=== PATIENT | female | born 1945 | race Caucasian/White ===

== ENCOUNTER 2020-02-05 07:52 | Outpatient (REF) | payer MEDICARE, SELFPAY ==
[2020-02-06 09:36] LABS: CT PCR NOT DETECTED (Not Detect.); NG PCR NOT DETECTED (Not Detect.)
[2020-02-11 21:02] LABS: HPV 16 RNA NOT DETECTED (NOT DETECTED); HPV mRNA E6/E7 rflx Detected (Not Detected)
== END 2020-02-05 07:53 | disposition home or self-care (01) ==
LOC: HO.LAB 07:52
PROVIDERS: Advanced Practice Midwife; Visit Provider Advanced Practice Midwife
DX: Z01.419 Encounter for gynecological examination (general) (routine) without abnormal findings (principal); B97.7 Papillomavirus as the cause of diseases classified elsewhere; Z20.2 Contact with and (suspected) exposure to infections with a predominantly sexual mode of transmission; Z78.0 Asymptomatic menopausal state; R93.89 Abnormal findings on diagnostic imaging of other specified body structures
CPT/HCPCS: 87491; 87591; 87624; 87625; 88141; 88142; 99202

== ENCOUNTER 2020-03-04 08:24 | Outpatient (REF) | payer MEDICARE, SELFPAY | END 2020-03-04 08:25 | disposition home or self-care (01) | LOC: HO.LAB 08:24 | PROVIDERS: Visit Provider Obstetrics & Gynecology | DX: N87.0 Mild cervical dysplasia (principal) | CPT/HCPCS: 57454; 88305 ==

== ENCOUNTER → 2020-03-18 11:34 | Outpatient (BNVA) | payer MEDICARE, SELFPAY | PROVIDERS: Visit Provider Obstetrics & Gynecology | DX: Z13.89 Encounter for screening for other disorder (principal) | CPT/HCPCS: 99212 ==

== ENCOUNTER 2020-04-12 09:23 | Outpatient (REF) | payer MEDICARE, SELFPAY ==
[2020-04-12 11:27] LABS: Estimated Average Glucose 146 mg/dL; Glucose Urine UA NEG (NEG); Hemoglobin A1c % 6.7 %; Leukocyte Esterase Urine NEG (NEG); Nitrite Urine NEG (NEG); PH 5.5 (5.0-8.0); Specific Gravity - Urine 1.025 (1.005-1.025); Urine Blood NEG (NEG); Urine Ketones NEG (NEG); Urine Protein NEG (NEG-TRACE)
[2020-04-12 11:29] LABS: Appearance Urine CLEAR; Color Urine YELLOW
[2020-04-12 11:38] LABS: Alanine Aminotransferase 24 U/L (0-31); Albumin Level 4.5 g/dL (3.5-5.0); Alkaline Phosphatase 81 U/L (39-117); Anion Gap 13 (12-20); Aspartate Amino Transferase 19 U/L (5-31); Bilirubin Total 0.4 mg/dL (0.0-1.0); Blood Urea Nitrogen 19 mg/dL (9-16); Carbon Dioxide 28 mmol/L (22-29); Chloride 105 mmol/L (96-108); Cholesterol 186 mg/dL; Estimated Glomerular Filt Rate > 60; Glucose Fasting 163 mg/dL (60-99); HDL Cholesterol 63 mg/dL; LDL Cholesterol Calculated 93 mg/dl; Potassium 3.9 mmol/l (3.3-5.1); Sodium 142 mmol/L (135-145); Total Protein 7.6 g/dL (6.5-8.0); Triglycerides 154 mg/dL
[2020-04-12 11:59] LABS: TSH reflex Free T4 1.42 mIU/mL (0.32-4.0)
[2020-04-12 12:03] LABS: Creatinine Urine 95.08 mg/dL; Microalbum/Creatinine Ratio Ur 9.4 ug/mg cr
== END 2020-04-12 09:24 | disposition home or self-care (01) ==
LOC: HO.HMGCLDS 09:23
PROVIDERS: PCP Internal Medicine; Visit Provider Internal Medicine
DX: E11.9 Type 2 diabetes mellitus without complications (principal); I10 Essential (primary) hypertension; E78.5 Hyperlipidemia, unspecified
CPT/HCPCS: 36415; 80053; 80061; 81003; 82043; 83036; 84443

== ENCOUNTER 2020-09-02 09:21 | Observation (INO) | payer MEDICARE, SELFPAY ==
[2020-09-02] VITALS (12 sets, daily range): BP systolic 123–171; BP diastolic 60–80; PULSE 58–77; RESP 15–18; TEMP 36.6–37.2; O2SAT 94–97; BMI 29.1
--- NOTE | 2020-09-02 | ECG_ITS ---
Test Reason : DIZZINESS Blood Pressure : / mmHG Vent. Rate : 058 BPM Atrial Rate : 058 BPM P-R Int : 252 ms QRS Dur : 114 ms QT Int : 434 ms P-R-T Axes : 058 -45 -08 degrees QTc Int : 426 ms Sinus bradycardia with 1st degree A-V block Left axis deviation Voltage criteria for left ventricular hypertrophy Cannot rule out Septal infarct , age undetermined Abnormal ECG No previous ECGs available Referred By: Generic ED Physician Electronically Signed By:ARMANDO STAUFFER MD
--- NOTE | ~2020-09-02 | CT_ITS ---
EXAMINATION: CT HEAD WITHOUT CONTRAST. CHEST X-RAY. CLINICAL INFORMATION: Headache and dizziness COMPARISON: None TECHNIQUE: 5 mm thin axial and reformatted 2 mm thin sagittal and coronal images of brain were obtained without contrast. DLP 712. Chest AP one view FINDINGS: BRAIN: There is no acute intra-axial, extra-axial bleed, masses or collection. There is no acute infarction in evolution. The lateral ventricles are symmetrical in size and configuration without enlargement. Bone windows reveal no calvarial abnormality. There is no scalp soft tissue abnormality either. Bilateral paranasal sinuses and mastoid air cells are well aerated. Patient is completely edentulous CHEST X-RAY: The lungs are hypoexpanded but clear. The heart size and pulmonary vascularity is normal. No gross bony abnormality seen. CT/CT head/brain wo con IMPRESSION: No acute intracranial process seen. There is no acute cardiopulmonary process seen on a chest x-ray.
--- NOTE | ~2020-09-02 | MR_ITS ---
EXAMINATION: MR BRAIN WITHOUT CONTRAST CLINICAL INFORMATION: Dizziness. Question stroke. COMPARISON: Head CT 09/02/2020. TECHNIQUE: Multiplanar, multisequence imaging of the brain was performed without intravenous contrast. FINDINGS: There is no acute infarction, mass, hemorrhage, or extra-axial collection. The ventricles and sulci appear commensurate compatible with mild degree of brain parenchymal volume loss. There is no hydrocephalus. Mild periventricular T2 hyperintensity is noted, nonspecific. The flow voids of the major intracranial arteries appear intact. The bones and extracranial soft tissues are unremarkable. There are bilateral lens replacements. A small amount of right mastoid fluid is seen. MR/MR head/brain wo con IMPRESSION: No acute infarct, mass lesion, intracranial hemorrhage, or evidence of hydrocephalus.
--- NOTE | ~2020-09-02 | CT_ITS ---
EXAMINATION: CT ANGIOGRAM NECK WITH CONTRAST CT ANGIOGRAM BRAIN WITH CONTRAST CLINICAL INFORMATION: Question stroke. COMPARISON: Brain MRI 09/02/2020. TECHNIQUE: Test bolus sequences followed by intravenous administration 70 mL of Omnipaque 350. Helical imaging was performed in the axial plane from the thoracic inlet to the skull vertex. Delayed postcontrast imaging of the head was also performed. The data was processed at the systems technologist workstation for generation of MIP sequences. Angled MIPs and volume rendered reformatted images were also generated at an offline 3D workstation. Stenoses are assessed in accordance with NASCET criteria unless otherwise indicated. This CT examination was performed using dose optimization techniques as appropriate, variously including the following: *Automated exposure control *Adjustment of mA and/or kV according to patient size (this includes techniques or standardized protocols for targeted exams where dose is matched to indication/reason for exam; i.e. extremities or head) *Use of iterative reconstruction technique DLP: 1590 mGy-cm FINDINGS: Head CT: Only postcontrast images, no enhancing lesion is seen. There is no intracranial hemorrhage, extra-axial collection, mass effect, or territorial infarction. The ventricles are normal in size and configuration without evidence of hydrocephalus. The extracranial structures are within normal limits. Neck CTA: Atheromatous changes are seen involving the aortic arch. The great vessel origins are patent. Atheromatous changes are seen at the right more than left carotid bifurcations without associated stenosis. Both cervical ICA segments are widely patent. Both vertebral arteries are patent. Head CTA: No proximal vessel occlusion is seen. The anterior and posterior circulations are patent. There is origin of the right [employer]. Bilateral carotid siphon calcifications are present without associated stenosis. There is no definite aneurysm. The dural venous sinuses are patent. Non-vascular findings: The cervical soft tissues are within normal limits. No consolidation is seen in the upper lungs. Degenerative changes are seen within the spine. CT/CT angio head neck IMPRESSION: No significant stenosis in the major head or neck arteries. No proximal vessel occlusion.
[2020-09-02 11:30] LABS: MANUAL DIFF FLAG NO
[2020-09-02 11:32] LABS: Basophils Percent Auto 0.3 % (0-2); Eosinophils Percent Auto 0.4 % (0-4); Hematocrit 45.6 % (37-47); Imm Gran Abs Auto 0.02 X10*3/uL (0.00-0.03); Imm Gran Pct Auto 0.3 % (0.0-0.4); Lymphocytes Absolute Auto 1.7 X10*3/uL (1.2-4.9); Lymphocytes Percent Auto 23.2 % (20-40); Mean Corpuscular HGB Conc 32.9 g/dl (31.0-35.0); Mean Corpuscular Hemoglobin 30.2 pg (27.0-33.0); Mean Corpuscular Volume 91.9 fL (80-98); Mean Platelet Volume 10.4 fL (9.4-12.3); Monocytes Absolute Auto 0.3 X10*3/uL (0.1-1.2); Monocytes Percent Auto 4.4 % (2-11); Neutrophils Absolute Auto 5.4 X10*3/uL (2.0-8.3); Neutrophils Percent Auto 71.4 % (45-73); Platelet Count 214 X10*3/uL (160-400); Red Blood Count 4.96 X10*6/uL (4.20-5.50); White Blood Count 7.5 X10*3/uL (4.8-10.8)
[2020-09-02 12:02] LABS: Anion Gap 10 (12-20); Blood Urea Nitrogen 17 mg/dL (9-16); Calcium 9.6 mg/dL (8.4-10.2); Carbon Dioxide 29 mmol/L (22-29); Chloride 107 mmol/L (96-108); Creatinine Clr Calc Pharmacy 56.1; Estimated Glomerular Filt Rate > 60; Glucose Random 143 mg/dL (60-115); Sodium 142 mmol/L (135-145)
[2020-09-02 12:08] LABS: Troponin-I High Sensitivity < 3.5 ng/L (<3.5-17.0)
--- NOTE | 2020-09-02 12:32 | PC.NURSE ---
Pt is dizzy with standing and ambulation. Pt is altho orthostatic at this time. Abundio SANCHEZ aware.
[2020-09-02] MEDS: 0.9 % Sodium Chloride 1,000 ML 999 ML IV ×2 (12:34→15:18)
--- NOTE | 2020-09-02 12:47 | ED.DIZZY ---
HPI - Dizziness General Chief Complaint: Dizziness Stated Complaint: DIZZINESS Time Seen by Provider: 09/02/20 14:53 Source: patient Mode of arrival: ambulatory Limitations: no limitations History of Present Illness HPI Narrative: Patient presents to ED for dizziness. Patient describes dizziness as being on a boat and feeling of balance. Patient states specially when she walks. Patient denies any chest pain or shortness of breath. Patient admits to nausea. Patient denies any headache, neck stiffness, neck pain, fever, chills, dysuria, hematuria, abdominal pain, chest pain, abdominal pain, or any recent trauma. MD elicited complaint: dizziness Related Data Home Medications Medication Instructions Recorded Confirmed ascorbic acid (vitamin C) [Vitamin 50 mg PO DAILY 09/02/20 09/02/20 C] cholecalciferol (vitamin D3) mcg PO DAILY 09/02/20 [Vitamin D3] glipizide 2.5 mg PO DAILY@1700 09/02/20 09/02/20 glipizide 5 mg PO DAILY 09/02/20 09/02/20 omega-3 fatty acids [Fish Oil] PO 09/02/20 Previous Rx's Medication Instructions Recorded amlodipine 5 mg tablet 5 mg PO DAILY #90 tab 02/06/20 atorvastatin 40 mg tablet 40 mg PO DAILY #90 tab 04/12/20 metoprolol succinate 100 mg 100 mg PO DAILY #90 tab 08/09/20 tablet,extended release 24 hr oxybutynin chloride 5 mg 5 mg PO DAILY #90 tab 08/13/20 tablet,extended release 24 hr Allergies Allergy/AdvReac Type Severity Reaction Status Date / Time clarithromycin [From Biaxin] Allergy Unknown unknown Verified 09/02/20 08:19 doxycycline Allergy Unknown unknown Verified 09/02/20 08:19 hydrochlorothiazide Allergy Unknown Nausea Verified 09/02/20 08:19 lisinopril Allergy Unknown cough Verified 09/02/20 08:19 triamterene Allergy Unknown nausea Verified 09/02/20 08:19 Review of Systems Review of Systems: Yes all other systems are reviewed and are negative Constitutional: Constitutional: Reports as per HPI and Reports no additional constitutional complaints Eyes: Eyes: Reports as per HPI and Reports no additional eye complaints ENT: Reports system reviewed and no additional complaints, except as documented and Reports as per HPI Cardiovascular: Cardiovascular: Reports as per HPI and Reports no additional cardiovascular complaints Respiratory: Respiratory: Reports as per HPI and Reports no additional respiratory complaints Gastrointestinal: Gastrointestinal: Reports as per HPI, Reports no additional gastrointestinal complaints and Reports nausea Genitourinary: Genitourinary: Reports no additional female genitourinary complaints and Reports as per HPI Musculoskeletal: Musculoskeletal: Reports no additional musculoskeletal complaints and Reports as per HPI Neurologic: Reports system reviewed and no additional complaints, except as documented and Reports as per HPI [facility] Past Medical History Medical History Annual physical exam Carpal tunnel syndrome on both sides DM type 2 (diabetes mellitus, type 2) HPV (human papilloma virus) infection HSV (herpes simplex virus) infection Hyperglycemia Hyperlipemia Hypertension Menopausal disorder Pruritus Urinary incontinence Surgical History Hx of unilateral oophorectomy Family History Family History Father No problems noted. Mother No problems noted. Social History Social History Alcohol intake: never Advance Directives: Yes Advance Directives Information Provided: Yes Advance Directives on File: No Sexual orientation: Straight/Heterosexual Gender identity: female Physical Exam Vital Signs: Vital Signs: Last Vital Signs Temp 98.9 F 09/02/20 10:23 Pulse 77 09/02/20 16:45 Resp 18 09/02/20 15:22 BP 125/60 09/02/20 16:45 Pulse Ox 96 09/02/20 15:22 Body Mass Index 29.1 Const: General: cooperative, healthy appearing, comfortable, no acute distress, well developed, alert and awake Orientation/consciousness: patient oriented x3 HENMT: Head: Yes normal to inspection, Yes No palpable skull fracture present, Yes normocephalic, Yes atraumatic and No abrasion Eyes: Other: Negative nystagmus General: appearance normal, both eyes and all related structures Neck: Neck: Yes normal visual inspection, Yes full ROM, Yes no lymphadenopathy, Yes no meningeal signs, Yes trachea midline, Yes supple and No tender Chest: Chest palpation & inspection: normal inspection of the chest and normal palpation of entire chest wall Resp: Effort & Inspection: normal respiratory effort and able to speak in complete sentences Auscultation: clear to auscultation bilaterally Cardio: Jugular venous distension: no JVD Heart sounds: S1 normal heart sound present and S2 normal heart sound present : General: No CVA tenderness and Yes no CVA tenderness Back/Spine/Pelvis: Back: no CVA tenderness, No CVA tenderness and No back tenderness Skin: General skin exam: no rashes or lesions noted and elasticity normal Neuro: Other: Negative facial droop. Negative slurred speech. All extremities equal strength 5+. [id number] and rapid hand movement intact. Positive Romberg General: patient oriented x3, gait normal, no meningeal signs and CN's II-XI intact bilaterally Cranial nerves: Yes CN's II-XII intact bilaterally Extrem: General: Yes normal to inspection and Yes full ROM Psych: Appearance: grossly normal and well kempt Course Course Course Narrative: Patient had medical evaluation including EKG labs and troponin. Reevaluation(s) Reevaluation #1: Chest x-ray negative for pneumonia. Head CT came back normal. Will give meclizine and fluids. Due to positive Romberg patient of MRI will be ordered to evaluate posterior cerebellar infarct. Case discussed with Dr. Crane who agrees with plan. Patient initial orthostatics came back positive will give fluids and repeat orthostatics. Time: 12:54 Reevaluation #2: MRI came back negative. Repeat orthostatics positive. patient to be admitted for orhthosatics. Repeat troponin pending. Time: 17:03 Reevaluation #3: Case accepted by Dr. Watson the hospitalist. He recommends CT angio of head and neck. Time: 19:59 MDM - Dizziness MDM Narrative Medical decision making narrative: Orthostatics Lab Data Result diagrams: 09/02/20 11:25 09/02/20 11:25 Labs: Lab Results 09/02/20 09/02/20 09/02/20 Range/Units 11:25 11:25 11:25 WBC 7.5 (4.8-10.8) X10*3/uL RBC 4.96 (4.20-5.50) X10*6/uL Hgb 15.0 (12.0-16.0) g/dl Hct 45.6 (37-47) % MCV 91.9 (80-98) fL MCH 30.2 (27.0-33.0) pg MCHC 32.9 (31.0-35.0) g/dl RDW 12.0 (11.0-16.0) % Plt Count 214 (160-400) X10*3/uL MPV 10.4 (9.4-12.3) fL Immature Gran % (Auto) 0.3 (0.0-0.4) % Neut % (Auto) 71.4 (45-73) % Lymph % (Auto) 23.2 (20-40) % Marshall % (Auto) 4.4 (2-11) % Eos % (Auto) 0.4 (0-4) % Baso % (Auto) 0.3 (0-2) % Lymph # (Auto) 1.7 (1.2-4.9) X10*3/uL Marshall # (Auto) 0.3 (0.1-1.2) X10*3/uL Eos # (Auto) 0.0 (0.0-0.4) X10*3/uL Baso # (Auto) 0.0 (0.0-0.2) X10*3/uL Abs Immat Gran (auto) 0.02 (0.00-0.03) X10*3/uL Absolute Neuts (auto) 5.4 (2.0-8.3) X10*3/uL Absolute Nucleated RBC 0.000 (0.0-0.012) X10*3/uL Nucleated RBC % (auto) 0.0 (0.0-0.2) /100WBC Sodium 142 (135-145) mmol/L Potassium 4.0 (3.3-5.1) mmol/L Chloride 107 (96-108) mmol/L Carbon Dioxide 29 (22-29) mmol/L Anion Gap 10 L (12-20) BUN 17 H (9-16) mg/dL Creatinine 0.87 (0.5-1.4) mg/dL Estim Creat Clear Calc 56.1 Estimated GFR > 60 Random Glucose 143 H (60-115) mg/dL Calcium 9.6 D (8.4-10.2) mg/dL Troponin I High Sens < 3.5 (<3.5-17.0) ng/L COVID-19 (BALWINDER) (Negative) COVID-19 Clin Com 09/02/20 09/02/20 Range/Units 15:10 17:18 WBC (4.8-10.8) X10*3/uL RBC (4.20-5.50) X10*6/uL Hgb (12.0-16.0) g/dl Hct (37-47) % MCV (80-98) fL MCH (27.0-33.0) pg MCHC (31.0-35.0) g/dl RDW (11.0-16.0) % Plt Count (160-400) X10*3/uL MPV (9.4-12.3) fL Immature Gran % (Auto) (0.0-0.4) % Neut % (Auto) (45-73) % Lymph % (Auto) (20-40) % Marshall % (Auto) (2-11) % Eos % (Auto) (0-4) % Baso % (Auto) (0-2) % Lymph # (Auto) (1.2-4.9) X10*3/uL Marshall # (Auto) (0.1-1.2) X10*3/uL Eos # (Auto) (0.0-0.4) X10*3/uL Baso # (Auto) (0.0-0.2) X10*3/uL Abs Immat Gran (auto) (0.00-0.03) X10*3/uL Absolute Neuts (auto) (2.0-8.3) X10*3/uL Absolute Nucleated RBC (0.0-0.012) X10*3/uL Nucleated RBC % (auto) (0.0-0.2) /100WBC Sodium (135-145) mmol/L Potassium (3.3-5.1) mmol/L Chloride (96-108) mmol/L Carbon Dioxide (22-29) mmol/L Anion Gap (12-20) BUN (9-16) mg/dL Creatinine (0.5-1.4) mg/dL Estim Creat Clear Calc Estimated GFR Random Glucose (60-115) mg/dL Calcium (8.4-10.2) mg/dL Troponin I High Sens 3.8 (<3.5-17.0) ng/L COVID-19 (BALWINDER) Negative (Negative) COVID-19 Clin Com See Note ECG Data Interpretation: Sinus bradycardia with first-degree AV block. Ventricular rate 58. Pr interval 252. QRS 114. QTC 426. Negative STEMI Discharge Plan Discharge Clinical Impression: Dizziness, Orthostatic hypotension Patient Disposition: Admitted As Inpatient
[2020-09-02] MEDS: Meclizine HCl 25 MG TABLET 50 MG PO (15:20)
--- NOTE | 2020-09-02 15:24 | PC.NURSE ---
Pt returned from MRI. Daughter at bedside and both patient and daughter informed of the plan. Pt medicated with meclazine and a second liter of IVF.
[2020-09-02 15:34] LABS: COVID-19 Test Negative (Negative); IDNOW Serial# 9DD0AD1C
[2020-09-02 17:56] LABS: Troponin-I High Sensitivity 3.8 ng/L (<3.5-17.0)
--- NOTE | 2020-09-02 18:56 | PHA.MEDREC ---
Pharmacy Consult ? Medication Reconciliation Pharmacy has completed the medication reconciliation and there were no significant medication issues requiring provider attention. Patient states she takes fish oil and Vitamin D3 but I couldn't confirm the strength of medication with the patient. Patient also states she takes 5mg of Glipizide ER in the morning and 2.5 mg of Glipizide ER in the evening, just looks to be a recent change that wasn't reflected in the outpatient pharmacy claim history. Savanna Orourke, PharmD [phone]
--- NOTE | 2020-09-02 19:02 | PC.NURSE ---
Daughter Maricel [phone]
--- NOTE | 2020-09-02 20:46 | PM.IMHP ---
History of Present Illness Date of Service: 09/02/20 Chief Complaint: Dizziness 74-year-old female with a past medical history Of hypertension, hyperlipidemia, diabetes, carpal tunnel syndrome, menopausal, history of HSV, HPV infection, cervical intraepithelial neoplasia grade 1; presented to the hospital with a chief complaint of dizziness. Patient reports that over the past 3 days she has been having dizziness and feeling off balance. Denies any headaches or blurry visions. Denies any chest pain or palpitations. Denies any shortness of breath cough or fevers. Denies any GI or symptoms. Review of all other systems is negative except mentioned above ER course: Per ER team patient on presentation noted to be orthostatic; exam was nonfocal; CT head showed no acute findings. Patient was given IV fluids but patient still remained symptomatic with orthostatic being positive. Admitted to the hospital for further management. ER team mentioned that they already needed MRI of the brain which showed no acute findings. CT angio of the head and neck is pending. EKG was nonischemic but noted to be sinus Daniel with first-degree AV block.. [facility] Medical History Annual physical exam Carpal tunnel syndrome on both sides DM type 2 (diabetes mellitus, type 2) HPV (human papilloma virus) infection HSV (herpes simplex virus) infection Hyperglycemia Hyperlipemia Hypertension Menopausal disorder Pruritus Urinary incontinence Family History Father No problems noted. Mother No problems noted. Surgical History Hx of unilateral oophorectomy Social History Alcohol intake: never service: No Current occupational status: employed Sexual orientation: Straight/Heterosexual Gender identity: female Meds Allergies Allergy/AdvReac Type Severity Reaction Status Date / Time clarithromycin [From Biaxin] Allergy Unknown unknown Verified 09/02/20 08:19 doxycycline Allergy Unknown unknown Verified 09/02/20 08:19 hydrochlorothiazide Allergy Unknown Nausea Verified 09/02/20 08:19 lisinopril Allergy Unknown cough Verified 09/02/20 08:19 triamterene Allergy Unknown nausea Verified 09/02/20 08:19 Active Medications: Current Medications Generic Name Dose Route Start Last Admin Trade Name Wayne PRN Reason Stop Dose Admin Acetaminophen 650 mg 09/02/20 19:58 Acetaminophen 325 Mg Tablet PO Q6H PRN Pain, Mild (Pain Scale 1-3) Ascorbic Acid 500 mg 09/03/20 09:00 Ascorbic Acid 500 Mg Tablet PO DAILY [facility] Atorvastatin Calcium 40 mg 09/03/20 21:00 Atorvastatin Calcium 40 Mg Tablet PO BEDTIME [facility] Sodium Chloride 1,000 mls @ 100 mls/hr 09/02/20 20:00 Ns IVCONT .Q10H [facility] Insulin Human Lispro 0 unit 09/02/20 21:00 Insulin Lispro 100 Unit/Ml 3 Ml Vial SUBCUT QIDACHS [facility] Protocol Magnesium Hydroxide 30 ml 09/02/20 19:58 Milk Of Magnesia 30 Ml Oral.Susp PO DAILY PRN Constipation Metoprolol Succinate 100 mg 09/03/20 09:00 Metoprolol Succinate Er 100 Mg Tab.Er.24h PO DAILY [facility] Protocol Oxybutynin Chloride 5 mg 09/03/20 09:00 Oxybutynin Chloride Er 5 Mg Tab.Er.24 PO DAILY [facility] Pharmacy Consult 1 each 09/02/20 17:56 Consult Rx Perform Med Rec MISCELLANE ONCE PRN Consult order Senna 17.2 mg 09/02/20 19:58 Sennosides 8.6 Mg Tablet PO BEDTIME PRN Constipation Sodium Chloride 3 ml 09/03/20 00:00 0.9 % Sodium Chloride Flush 3 Ml Syringe IVFLUSH QSHIFT [facility] Home Medications Medication Instructions Recorded Confirmed Last Taken Type ascorbic acid (vitamin C) [Vitamin 50 mg PO DAILY 09/02/20 09/02/20 09/02/20 History C] cholecalciferol (vitamin D3) mcg PO DAILY 09/02/20 Unknown History [Vitamin D3] glipizide 2.5 mg PO DAILY@1700 09/02/20 09/02/20 09/01/20 History glipizide 5 mg PO DAILY 09/02/20 09/02/20 09/02/20 History omega-3 fatty acids PO 09/02/20 Unknown History Physical Exam Vital Signs and Narrative: Vital Signs: Last Vital Signs Temp 98.9 F 09/02/20 10:23 Pulse 77 09/02/20 16:45 Resp 18 09/02/20 15:22 BP 125/60 09/02/20 16:45 Pulse Ox 96 09/02/20 15:22 Body Mass Index 29.1 Gen: Appears be in no acute distress HEENT: NCAT, Moist mucosa. Pupils equal and reactive Pulmonary: Vesicular breath sounds, fair air entry CVS: Normal S1-S2 Abdomen: BS+, Soft, Nontender Extremities: Warm well perfused Neuro: Alert and awake. Grossly nonfocal Results Labs CBC and Chem 7: 09/03/20 05:43 09/03/20 05:43 Labs: Laboratory Results - last 24 hr 09/02/20 09/02/20 09/02/20 11:25 11:25 11:25 MCV 91.9 MCH 30.2 MCHC 32.9 RDW 12.0 Plt Count 214 MPV 10.4 Immature Gran % (Auto) 0.3 Neut % (Auto) 71.4 Lymph % (Auto) 23.2 Powell % (Auto) 4.4 Eos % (Auto) 0.4 Baso % (Auto) 0.3 Lymph # (Auto) 1.7 Powell # (Auto) 0.3 Eos # (Auto) 0.0 Baso # (Auto) 0.0 Abs Immat Gran (auto) 0.02 Absolute Neuts (auto) 5.4 Absolute Nucleated RBC 0.000 Nucleated RBC % (auto) 0.0 Anion Gap 10 L Estim Creat Clear Calc 56.1 Estimated GFR > 60 Random Glucose 143 H Calcium 9.6 D Troponin I High Sens < 3.5 COVID-19 ([facility]) COVID-19 Clin Com 09/02/20 09/02/20 15:10 17:18 MCV MCH MCHC RDW Plt Count MPV Immature Gran % (Auto) Neut % (Auto) Lymph % (Auto) Powell % (Auto) Eos % (Auto) Baso % (Auto) Lymph # (Auto) Powell # (Auto) Eos # (Auto) Baso # (Auto) Abs Immat Gran (auto) Absolute Neuts (auto) Absolute Nucleated RBC Nucleated RBC % (auto) Anion Gap Estim Creat Clear Calc Estimated GFR Random Glucose Calcium Troponin I High Sens 3.8 COVID-19 (BALWINDER) Negative COVID-19 Clin Com See Note Imaging Radiologist's Impressions: Impressions Head CT 09/02/20 10:30 IMPRESSION: No acute intracranial process seen. There is no acute cardiopulmonary process seen on a chest x-ray. Chest X-Ray 09/02/20 10:37 IMPRESSION: No acute intracranial process seen. There is no acute cardiopulmonary process seen on a chest x-ray. Brain MRI 09/02/20 12:31 IMPRESSION: No acute infarct, mass lesion, intracranial hemorrhage, or evidence of hydrocephalus. Assessment and Plan (1) Dizziness: Status: Acute 74-year-old female with a past medical history of hypertension, hyperlipidemia, diabetes presented to the hospital with a chief complaint of dizziness for the past 3 days. Dizziness: Patient noted to be orthostatic. Grossly nonfocal examination. MRI brain showed no acute findings. CT angio head and neck pending. Meclizine p.r.n. Neurology consult Patient noted to be orthostatic positive. Gentle IV fluids. Hold home antihypertensives for now. Sinus bradycardia/first-degree AV block: Will obtain TSH and echocardiogram. Telemetry. Cardiology consult. Diabetes: Insulin sliding scale DVT prophylaxis: SCD boots Code status: Full code
[2020-09-02] MEDS: iohexoL 350 MG/ML 100 ML INFUS..BTL IV (20:59)
[2020-09-02 21:11] LABS: Glucose, Whole Blood 179 mg/dL (60-115)
[2020-09-02] MEDS: 0.9 % Sodium Chloride 1,000 ML 100 ML IVCONT (21:14)
[2020-09-02] MEDS: Meclizine HCl 25 MG TABLET PO (21:14)
[2020-09-02] MEDS: Acetaminophen 325 MG TABLET 650 MG PO (21:14)
[2020-09-02] MEDS: Insulin Lispro 100 UNIT/ML 3 ML VIAL SUBCUT (21:14)
[2020-09-03] VITALS (8 sets, daily range): BP systolic 121–156; BP diastolic 34–84; PULSE 59–78; RESP 18–20; TEMP 36.3–36.9; O2SAT 94–97
[2020-09-03 06:40] LABS: MANUAL DIFF FLAG NO
[2020-09-03 07:01] LABS: Basophils Percent Auto 0.3 % (0-2); Eosinophils Absolute Auto 0.1 X10*3/uL (0.0-0.4); Eosinophils Percent Auto 1.9 % (0-4); Hematocrit 44.2 % (37-47); Hemoglobin 14.4 g/dl (12.0-16.0); Imm Gran Abs Auto 0.01 X10*3/uL (0.00-0.03); Imm Gran Pct Auto 0.1 % (0.0-0.4); Lymphocytes Percent Auto 28.7 % (20-40); Mean Corpuscular HGB Conc 32.6 g/dl (31.0-35.0); Mean Corpuscular Hemoglobin 29.8 pg (27.0-33.0); Mean Corpuscular Volume 91.3 fL (80-98); Mean Platelet Volume 11.1 fL (9.4-12.3); Monocytes Absolute Auto 0.5 X10*3/uL (0.1-1.2); Monocytes Percent Auto 7.4 % (2-11); Neutrophils Absolute Auto 4.3 X10*3/uL (2.0-8.3); Neutrophils Percent Auto 61.6 % (45-73); Platelet Count 216 X10*3/uL (160-400); Red Blood Count 4.84 X10*6/uL (4.20-5.50); Red Cell Distribution Width 12.1 % (11.0-16.0)
[2020-09-03 07:22] LABS: Anion Gap 12 (12-20); Blood Urea Nitrogen 15 mg/dL (9-16); Calcium 8.4 mg/dL (8.4-10.2); Carbon Dioxide 25 mmol/L (22-29); Chloride 111 mmol/L (96-108); Creatinine Clr Calc Pharmacy 62.6; Estimated Glomerular Filt Rate > 60; Glucose Random 100 mg/dL (60-115); Potassium 3.8 mmol/L (3.3-5.1); Sodium 144 mmol/L (135-145)
[2020-09-03 07:33] LABS: Glucose, Whole Blood 123 mg/dL (60-115)
[2020-09-03 07:33] LABS: Thyroid Stimulating Hormone 2.02 uIU/mL (0.32-4.0)
[2020-09-03] MEDS: Ascorbic Acid 500 MG TABLET PO (08:43)
[2020-09-03] MEDS: Metoprolol Succinate ER 100 MG TAB.ER.24H PO (08:43)
--- NOTE | 2020-09-03 09:23 | MHC.CM.PN ---
CM spoke with Patient over the phone @ [phone], with the assist of [employer] ([employer]) and addressed CARVAJAL, providing Patient with the original and placing a copy on the chart. Patient lives in a house with her Daughter/Caridad @ [phone] and she has no DME nor did she require any services in the home. Patient's goal for dc is to return home/no services and CM has initiated and will follow for dc planning. PCP/Dr. Kimberlyn Noland.
--- NOTE | 2020-09-03 11:06 | P.CONCA_ITS ---
History of Present Illness History of Present Illness Date of Service: 09/03/20 Requesting physician: Guero Watson Consult reason: other (Near-syncope) Chief complaint: DIZZINESS Narrative: I was requested to see Sona in cardiology consultation today for near syncope. She is a 74-year-old woman with prior history of hypertension which has been difficult to control, diabetes came to the hospital with dizziness for the last 3 days. History was obtained with help of a [place] windows migration technician over the telephone. She is a difficult historian despite an windows migration technician. Patient says in the recent past her blood pressure has been somewhat difficult control and her medicines have been adjusted. She is not able to tell which medicines. However the last 3 days she has been noticing symptoms of lightheadedness especially when she gets up from a supine position or when she is upright. During this heart whether she has been working outside however does go inside the house and had condition rest. She has been apparently drinking adequate amount of fluids. However she came yesterday with these symptoms after seeing a primary care physician referred to the emergency room. In the emergency room she was noted to have significant orthostasis and was admitted for IV fluid. She remained orthostatic. However this morning orthostatic vitals were performed. She has mild drop in her standing blood pressure otherwise she is not symptomatic. However she says this morning she has not been able to move around because she has down to the IV pole. She denies any full syncopal episode. She denies any palpitations. Independently she says over the last 3-4 months she has been getting retrosternal chest burning sensation. Symptoms last for few minutes are pretty intense. They are not clearly exertional in nature. Can happen at any time. No shortness of breath, orthopnea, PND, leg edema. At home she is on amlodipine 5 mg and Toprol 100 mg. On admission she was noted to have sinus bradycardia with first-degree AV block. Review of Systems Constitutional: Constitutional: Reports no additional constitutional complaints Cardiovascular: Cardiovascular: Denies Abdominal Distension, Reports chest pain, Denies leg edema, Reports lightheadedness, Denies palpitations and Denies dyspnea Respiratory: Respiratory: Reports no additional respiratory complaints and Denies dyspnea Gastrointestinal: Gastrointestinal: Reports no additional gastrointestinal complaints Genitourinary: Genitourinary: Reports no additional female genitourinary complaints Musculoskeletal: Musculoskeletal: Reports no additional musculoskeletal complaints Neurologic: Reports system reviewed and no additional complaints, except as documented Endocrine: Endocrine: Reports no additional endocrine complaints and Denies palpitations Hematologic/Lymphatic: Hematologic/Lymphatic: Reports no additional hematologic/lymphatic complaints [facility] Past Medical History Medical History Annual physical exam Carpal tunnel syndrome on both sides DM type 2 (diabetes mellitus, type 2) HPV (human papilloma virus) infection HSV (herpes simplex virus) infection Hyperglycemia Hyperlipemia Hypertension Menopausal disorder Pruritus Urinary incontinence Family History Family History Father No problems noted. Mother No problems noted. Surgical History Surgical History Hx of unilateral oophorectomy Social History Social History Alcohol intake: never Currently Displaying Signs/Symptoms of Drug Intoxication Withdrawal: No Advance Directives: Yes Advance Directives Information Provided: Yes Advance Directives on File: No Do you have thoughts of harming others: None Do you have a plan to hurt others: No Plan service: No Current occupational status: employed Sexual orientation: Straight/Heterosexual Gender identity: female Meds Allergies Allergy/AdvReac Type Severity Reaction Status Date / Time clarithromycin [From Biaxin] Allergy Unknown unknown Verified 09/02/20 08:19 doxycycline Allergy Unknown unknown Verified 09/02/20 08:19 hydrochlorothiazide Allergy Unknown Nausea Verified 09/02/20 08:19 lisinopril Allergy Unknown cough Verified 09/02/20 08:19 triamterene Allergy Unknown nausea Verified 09/02/20 08:19 Active Medications: Current Medications Generic Name Dose Route Start Last Admin Trade Name Freq PRN Reason Stop Dose Admin Acetaminophen 650 mg 09/02/20 19:58 09/02/20 21:14 Acetaminophen 325 Mg Tablet PO 650 mg Q6H PRN Administration Pain, Mild (Pain Scale 1-3) Ascorbic Acid 500 mg 09/03/20 09:00 09/03/20 08:43 Ascorbic Acid 500 Mg Tablet PO 500 mg DAILY BEATRIS Administration Atorvastatin Calcium 40 mg 09/03/20 21:00 Atorvastatin Calcium 40 Mg Tablet PO BEDTIME BEATRIS Sodium Chloride 1,000 mls @ 100 mls/hr 09/02/20 20:00 09/03/20 08:42 Ns IVCONT Not Given .Q10H [facility] Insulin Human Lispro 0 unit 09/02/20 21:00 09/03/20 07:35 Insulin Lispro 100 Unit/Ml 3 Ml Vial SUBCUT Not Given QIDACHS [facility] Protocol Magnesium Hydroxide 30 ml 09/02/20 19:58 Milk Of Magnesia 30 Ml Oral.Susp PO DAILY PRN Constipation Meclizine HCl 25 mg 09/02/20 20:51 09/02/20 21:14 Meclizine Hcl 25 Mg Tablet PO 25 mg Q8H PRN Administration dizziness Metoprolol Succinate 100 mg 09/03/20 09:00 09/03/20 08:43 Metoprolol Succinate Er 100 Mg Tab.Er.24h PO 100 mg DAILY [facility] Administration Protocol Oxybutynin Chloride 5 mg 09/03/20 09:00 09/03/20 08:43 Oxybutynin Chloride Er 5 Mg Tab.Er.24 PO 5 mg DAILY [facility] Administration Pharmacy Consult 1 each 09/02/20 17:56 Consult Rx Perform Med Rec MISCELLANE ONCE PRN Consult order Senna 17.2 mg 09/02/20 19:58 Sennosides 8.6 Mg Tablet PO BEDTIME PRN Constipation Sodium Chloride 3 ml 09/03/20 00:00 09/03/20 08:43 0.9 % Sodium Chloride Flush 3 Ml Syringe IVFLUSH Not Given QSHIFT [facility] Home Medications Medication Instructions Recorded Confirmed Last Taken Type ascorbic acid (vitamin C) [Vitamin 50 mg PO DAILY 09/02/20 09/02/20 09/02/20 History C] cholecalciferol (vitamin D3) mcg PO DAILY 09/02/20 Unknown History [Vitamin D3] glipizide 2.5 mg PO DAILY@1700 09/02/20 09/02/20 09/01/20 History glipizide 5 mg PO DAILY 09/02/20 09/02/20 09/02/20 History omega-3 fatty acids [Fish Oil] PO 09/02/20 Unknown History Physical Exam Vital Signs: Vital Signs: Last Vital Signs Temp 97.8 F 09/03/20 07:39 Pulse 78 09/03/20 07:44 Resp 20 09/03/20 07:39 BP 123/34 L 09/03/20 07:44 Pulse Ox 94 09/03/20 07:39 Body Mass Index 29.1 Const: General: cooperative, comfortable, alert and awake Nutritional Appearance: overweight Orientation/consciousness: patient oriented x3 Limitations: no limitations HENMT: Head: Yes normocephalic and Yes atraumatic Neck: Neck: Yes trachea midline, Yes supple and Yes no JVD Resp: Effort & Inspection: normal respiratory effort Auscultation: clear to auscultation bilaterally Cardio: Jugular venous distension: no JVD Palpation: normal PMI Rate: r egular rate Rhythm: regular rhythm Heart sounds: S1 normal heart sound present, S2 normal heart sound present and Other heart sounds present (S4 p resent) GI: Auscultation: normal bowel sounds Skin: General skin exam: no rashes or lesions noted Neuro: General: patient oriented x3 and no focal motor deficits Extrem: General: Yes no clubbing, cyanosis or edema Psych: Appearance: grossly normal Results Labs and Meds Result diagrams: 09/03/20 05:43 09/03/20 05:43 Lab results: Laboratory Results - last 24 hr 09/02/20 09/02/20 09/02/20 11:25 11:25 11:25 WBC 7.5 RBC 4.96 Hgb 15.0 Hct 45.6 MCV 91.9 MCH 30.2 MCHC 32.9 RDW 12.0 Plt Count 214 MPV 10.4 Immature Gran % (Auto) 0.3 Neut % (Auto) 71.4 Lymph % (Auto) 23.2 [place] % (Auto) 4.4 Eos % (Auto) 0.4 Baso % (Auto) 0.3 Lymph # (Auto) 1.7 [place] # (Auto) 0.3 Eos # (Auto) 0.0 Baso # (Auto) 0.0 Abs Immat Gran (auto) 0.02 Absolute Neuts (auto) 5.4 Absolute Nucleated RBC 0.000 Nucleated RBC % (auto) 0.0 Sodium 142 Potassium 4.0 Chloride 107 Carbon Dioxide 29 Anion Gap 10 L BUN 17 H Creatinine 0.87 Estim Creat Clear Calc 56.1 Estimated GFR > 60 POC Glucose Random Glucose 143 H Calcium 9.6 D Troponin I High Sens < 3.5 TSH COVID-19 ([facility]WINDER) COVID-19 Clin Com 09/02/20 09/02/20 09/02/20 15:10 17:18 21:03 WBC RBC Hgb Hct MCV MCH MCHC RDW Plt Count MPV Immature Gran % (Auto) Neut % (Auto) Lymph % (Auto) [place] % (Auto) Eos % (Auto) Baso % (Auto) Lymph # (Auto) [place] # (Auto) Eos # (Auto) Baso # (Auto) Abs Immat Gran (auto) Absolute Neuts (auto) Absolute Nucleated RBC Nucleated RBC % (auto) Sodium Potassium Chloride Carbon Dioxide Anion Gap BUN Creatinine Estim Creat Clear Calc Estimated GFR POC Glucose 179 H Random Glucose Calcium Troponin I High Sens 3.8 TSH COVID-19 (BALWINDER) Negative COVID-19 Clin Com See Note 09/03/20 09/03/20 09/03/20 05:43 05:43 05:43 WBC 7.0 RBC 4.84 Hgb 14.4 Hct 44.2 MCV 91.3 MCH 29.8 MCHC 32.6 RDW 12.1 Plt Count 216 MPV 11.1 Immature Gran % (Auto) 0.1 Neut % (Auto) 61.6 Lymph % (Auto) 28.7 Mathews % (Auto) 7.4 Eos % (Auto) 1.9 Baso % (Auto) 0.3 Lymph # (Auto) 2.0 [place]ws # (Auto) 0.5 Eos # (Auto) 0.1 Baso # (Auto) 0.0 Abs Immat Gran (auto) 0.01 Absolute Neuts (auto) 4.3 Absolute Nucleated RBC 0.000 Nucleated RBC % (auto) 0.0 Sodium 144 Potassium 3.8 Chloride 111 H Carbon Dioxide 25 Anion Gap 12 BUN 15 Creatinine 0.78 Estim Creat Clear Calc 62.6 Estimated GFR > 60 POC Glucose Random Glucose 100 Calcium 8.4 D Troponin I High Sens TSH 2.02 COVID-19 ([facility]) COVID-19 Clin Com 09/03/20 07:22 WBC RBC Hgb Hct MCV MCH MCHC RDW Plt Count MPV Immature Gran % (Auto) Neut % (Auto) Lymph % (Auto) [place] % (Auto) Eos % (Auto) Baso % (Auto) Lymph # (Auto) [place] # (Auto) Eos # (Auto) Baso # (Auto) Abs Immat Gran (auto) Absolute Neuts (auto) Absolute Nucleated RBC Nucleated RBC % (auto) Sodium Potassium Chloride Carbon Dioxide Anion Gap BUN Creatinine Estim Creat Clear Calc Estimated GFR POC Glucose 123 H Random Glucose Calcium Troponin I High Sens TSH COVID-19 (BALWINDER) COVID-19 Clin Com Imaging Radiologist's impression: Impressions Brain MRI 09/02/20 12:31 IMPRESSION: No acute infarct, mass lesion, intracranial hemorrhage, or evidence of hydrocephalus. Head/Neck CTA 09/02/20 19:56 IMPRESSION: No significant stenosis in the major head or neck arteries. No proximal vessel occlusion. Assessment and Plan (1) Near syncope: Status: Acute Near syncope in elderly woman with prior history of difficult control hypertension and diabetes with prior history of carpal tunnel syndrome. Patient was noted to be orthostatic most likely due to intravascular volume depletion from dehydration due to recent weather and probably not adequate oral intake. I had a very detailed discussion about mechanism of orthostatic hypotension with her with help of windows migration technician. Despite that she seemed to not grasp the concept. Please provide education material for her as well as her family to understand this condition. We discussed about changing position from supine to sitting to standing position more gradually. Advised to seek sitting or supine position she gets lightheaded. Advise increase fluid intake. Also reduce her metoprolol to 50 mg daily in the morning and switch her amlodipine 5 mg to nighttime. Advised to monitor blood pressure at home and maintain a log. Will perform outpatient testing including Holter monitor, echocardiogram. She eventually showed some understanding. (2) Atypical chest pain: Status: Acute Patient with recent onset intermittent burning chest discomfort atypical features. She has multiple risk factors for coronary artery disease. Will perform a exercise myocardial perfusion imaging as outpatient. She has no evidence of acute coronary syndrome at this time. Will follow up as outpatient. Thank you for allowing me to partake in the care Procedures Date of Service Date of Service: 09/03/20
--- NOTE | 2020-09-03 12:24 | MHC.CM.PN ---
Patient has been medically cleared for dc to home today, no services.
[2020-09-03 12:53] LABS: Glucose, Whole Blood 143 mg/dL (60-115)
--- NOTE | 2020-09-03 14:00 | P.DS_ITS ---
DS: Providers Provider Date of Service: 09/03/20 Date of admission: 09/02/20 19:58 Primary care physician: Kimberlyn Noland MD Consults: 09/02/20 19:58 Consult to Cardiology Routine Consulting Provider: Rolando Hunter Reason for consultation: 1*AVB; bradycardia; p/w Dizziness 09/02/20 20:51 Consult to Neurology Routine Consulting Provider: [facility] Reason for consultation: dizziness; rhombergs positive DS: Diagnosis Discharge Diagnosis (1) Near syncope: Status: Acute (2) Atypical chest pain: Status: Acute DS: Medications Discharge Medications Home Medications: Home Medications Medication Instructions Recorded Confirmed ascorbic acid (vitamin C) [Vitamin 50 mg PO DAILY 09/02/20 09/02/20 C] cholecalciferol (vitamin D3) mcg PO DAILY 09/02/20 [Vitamin D3] glipizide 2.5 mg PO DAILY@1700 09/02/20 09/02/20 glipizide 5 mg PO DAILY 09/02/20 09/02/20 omega-3 fatty acids PO 09/02/20 Previous Rx's Medication Instructions Recorded atorvastatin 40 mg tablet 40 mg PO DAILY #90 tab 04/12/20 oxybutynin chloride 5 mg 5 mg PO DAILY #90 tab 08/13/20 tablet,extended release 24 hr amlodipine 5 mg PO BEDTIME #90 tab 09/03/20 metoprolol succinate 50 mg PO DAILY #90 tab 09/03/20 DS: Summary Hospital Course Hospital Course: History is obtained from H&P Chief Complaint: Dizziness 74-year-old female with a past medical history Of hypertension, hyperlipidemia, diabetes, carpal tunnel syndrome, menopausal, history of HSV, HPV infection, cervical intraepithelial neoplasia grade 1; presented to the hospital with a chief complaint of dizziness. Patient reports that over the past 3 days she has been having dizziness and feeling off balance. Denies any headaches or blurry visions. Denies any chest pain or palpitations. Denies any shortness of breath cough or fevers. Denies any GI or symptoms. While in the ED patient was found to have orthostatic hypotension. Patient was treated with IV fluids with resolution of her symptoms. Patient's orthostatic vitals were normal this morning. Cardiology was also consulted as her EKG showed first-degree AV block. Recommended to reduce her metoprolol from 100 mg to 50 mg and change her amlodipine to bedtime. Patient's symptoms resolved, orthostatic vitals negative for orthostasis. patient will be discharged home. Please follow-up with PCP in 1 week Time Spent with Patient Time attestation: Total time spent providing and/or coordinating discharge services: Discharge coordination time: Greater than 30 minutes Quality: Stroke Does the patient have a stroke diagnosis?: No Physical Exam Vital Signs: Vital Signs: Last Vital Signs Temp 98.4 F 09/03/20 11:44 Pulse 75 09/03/20 11:44 Resp 19 09/03/20 11:44 BP 148/71 H 09/03/20 11:44 Pulse Ox 95 09/03/20 11:44 Body Mass Index 29.1 Const: General: cooperative and no acute distress Orientation/consciousness: patient oriented x3 Eyes: General: appearance normal, both eyes and all related structures Resp: Effort & Inspection: normal respiratory effort and able to speak in complete sentences Cardio: Rate: regular rate Rhythm: regular rhythm GI: Palpation (GI): Soft to palpation Auscultation: normal bowel sounds Skin: General skin exam: no rashes or lesions noted Neuro: General: patient oriented x3 Cognition (Neuro): normal cognition Extrem: General: Yes normal to inspection and Yes no pedal edema DS: Data Data Completed and Pending Labs on day of discharge: Laboratory Results - last 24 hr 09/02/20 09/02/20 09/02/20 15:10 17:18 21:03 WBC RBC Hgb Hct MCV MCH MCHC RDW Plt Count MPV Immature Gran % (Auto) Neut % (Auto) Lymph % (Auto) [place] % (Auto) Eos % (Auto) Baso % (Auto) Lymph # (Auto) [place] # (Auto) Eos # (Auto) Baso # (Auto) Abs Immat Gran (auto) Absolute Neuts (auto) Absolute Nucleated RBC Nucleated RBC % (auto) Sodium Potassium Chloride Carbon Dioxide Anion Gap BUN Creatinine Estim Creat Clear Calc Estimated GFR POC Glucose 179 H Random Glucose Calcium Troponin I High Sens 3.8 TSH COVID-19 ([facility]WINDER) Negative COVID-19 Clin Com See Note 09/03/20 09/03/20 09/03/20 05:43 05:43 05:43 WBC 7.0 RBC 4.84 Hgb 14.4 Hct 44.2 MCV 91.3 MCH 29.8 MCHC 32.6 RDW 12.1 Plt Count 216 MPV 11.1 Immature Gran % (Auto) 0.1 Neut % (Auto) 61.6 Lymph % (Auto) 28.7 [place] % (Auto) 7.4 Eos % (Auto) 1.9 Baso % (Auto) 0.3 Lymph # (Auto) 2.0 [place] # (Auto) 0.5 Eos # (Auto) 0.1 Baso # (Auto) 0.0 Abs Immat Gran (auto) 0.01 Absolute Neuts (auto) 4.3 Absolute Nucleated RBC 0.000 Nucleated RBC % (auto) 0.0 Sodium 144 Potassium 3.8 Chloride 111 H Carbon Dioxide 25 Anion Gap 12 BUN 15 Creatinine 0.78 Estim Creat Clear Calc 62.6 Estimated GFR > 60 POC Glucose Random Glucose 100 Calcium 8.4 D Troponin I High Sens TSH 2.02 COVID-19 (BALWINDER) COVID-19 [facility] 09/03/20 09/03/20 07:22 11:37 WBC RBC Hgb Hct MCV MCH MCHC RDW Plt Count MPV Immature Gran % (Auto) Neut % (Auto) Lymph % (Auto) [place] % (Auto) Eos % (Auto) Baso % (Auto) Lymph # (Auto) [place] # (Auto) Eos # (Auto) Baso # (Auto) Abs Immat Gran (auto) Absolute Neuts (auto) Absolute Nucleated RBC Nucleated RBC % (auto) Sodium Potassium Chloride Carbon Dioxide Anion Gap BUN Creatinine Estim Creat Clear Calc Estimated GFR POC Glucose 123 H 143 H Random Glucose Calcium Troponin I High Sens TSH COVID-19 ([facility]WINDER) COVID-19 Clin Com Discharge Plan Discharge Patient Disposition: Home, Self-Care Referrals: Kimberlyn Noland MD [Primary Care Provider] - 1 Week Discharge Medications: Continued oxybutynin chloride 5 mg tablet extended release 24hr 5 mg PO DAILY Qty: 90 RF: 3 glipizide 2.5 mg tablet extended release 24hr 5 mg PO DAILY RF: 0 ascorbic acid (vitamin C) [Vitamin C] 500 mg tablet 50 mg PO DAILY RF: 0 glipizide 2.5 mg tablet extended release 24hr 2.5 mg PO DAILY@1700 RF: 0 cholecalciferol (vitamin D3) [Vitamin D3] 25 mcg (1,000 unit) Capsule PO DAILY RF: 0 omega-3 fatty acids Capsule PO RF: 0 atorvastatin 40 mg tablet 40 mg PO DAILY Qty: 90 RF: 3 Changed metoprolol succinate 100 mg tablet extended release 24 hr 50 mg PO DAILY Qty: 90 RF: 3 amlodipine 5 mg tablet 5 mg PO BEDTIME Qty: 90 RF: 3 Discharge Orders: Discharge Order (Routine); Ordered 09/03/20 Ordered By: James Retana Diet: advance to usual diet Activity on Discharge: As tolerated Stand Alone Forms: Patient Portal Discharge page Care Plan Goals: Recovery, avoid hospitalization Health Concerns: orthostatic hypotension Plan of Treatment: You were admitted for dizziness, found to be most likely secondary to orthostatic hypotension. You were treated with IV fluids with resolution of your symptoms as well as resolution of orthostasis. Assessment: Cardiology was consulted. medications were changed. please take amlodipine at bedtime ( no change to dose). Metoprolol reduced to 50 Mg. please follow up with pcp <1 wk to evaluate BP and vitals.
== END 2020-09-03 14:13 | disposition home or self-care (01) ==
LOC: HO.ED 20:00 → HO.EDOVER 20:47 → HO.IMC 23:12
PROVIDERS: Physician Assistant; Admitting Provider Hospitalist; Emergency Provider Emergency Medicine Emergency Medical Services; PCP Internal Medicine; Visit Provider Internal Medicine
DX: R55 Syncope and collapse (principal); R07.89 Other chest pain; R42 Dizziness and giddiness; R51.9 Headache, unspecified; I70.0 Atherosclerosis of aorta; I70.8 Atherosclerosis of other arteries; I10 Essential (primary) hypertension; E78.5 Hyperlipidemia, unspecified; E11.65 Type 2 diabetes mellitus with hyperglycemia; R00.1 Bradycardia, unspecified; I44.0 Atrioventricular block, first degree; R94.31 Abnormal electrocardiogram [ECG] [EKG]; N87.0 Mild cervical dysplasia; Z90.721 Acquired absence of ovaries, unilateral; Z20.822 Contact with and (suspected) exposure to COVID-19; Z88.1 Allergy status to other antibiotic agents; Z88.8 Allergy status to other drugs, medicaments and biological substances; Z79.84 Long term (current) use of oral hypoglycemic drugs; Z79.899 Other long term (current) drug therapy
CPT/HCPCS: 36415; 70450; 70496; 70498; 70551; 71045; 80048; 82947; 84443; 84484; 85025; 87635; 93005; 97162; 99219; 99285; Q9967

== ENCOUNTER → 2020-10-01 08:57 | Outpatient (REF) | payer MEDICARE, SELFPAY ==
--- NOTE | ~2020-10-01 | NM_ITS ---
Myocardial perfusion study Indication: Near syncope with multiple risk factors to evaluate for myocardial ischemia Technique: The patient was brought in for a Lexiscan perfusion study on 10/01/2020. Patient performed low-level exercise and was injected 0.4 mg of Lexiscan intravenously. Within a minute of injection, 25 mCi of sestamibi was given intravenously. Images were obtained using the SPECT gamma camera interlaced with the gating device. Images were obtained in supine position. Resting perfusion study was performed on 10/05/2020. Patient was administered 25 mCi of sestamibi intravenously at rest. Images were then obtained in supine position. Images obtained with and without CT. Total DLP 96 mGy-cm. Images were processed with the software and compared side to side in short axis, horizontal long axis and vertical long axis views. Findings: The stress perfusion study showed nonattenuated images show normal uptake of radiotracer in all segments of LV myocardium corrected images show mildly distal septum of the LV myocardium. The gated study shows normal LV systolic function with calculated LVEF of 55%. LV cavity is normal in size. The gated study shows normal systolic wall thickening and contraction of segments. Resting study shows no change in perfusion pattern compared to stress perfusion study. Gating at rest reveals normal systolic wall motion with ejection fraction at 61%. The findings are consistent with no reversible defect suggestive of ischemia. Likely normal myocardial. NM/NM cardiolite stress test Impression: 1. Myocardial perfusion imaging study shows normal myocardial perfusion 2. Gated LVEF is 55% 3. Transient ischemic dilatation not present EKG is suggestive of ischemia
--- NOTE | 2020-10-01 09:16 | CA_ITS ---
Acquisition Time: 2020-10-01 09:26:31 Total Exercise Time: 00:04:59 Test Indications: SYNCOPE AND COLLAPSE Medications: Protocol: JETHRO Max HR: 141 BPM 97% of Pred: 145 BPM Max BP: 208/052 mmHG Max Work Load: 5.2 METS Exercise stress test with exercise 4 min 59 sec of Jethro protocol ( speed in stage 2 reduced to 2.1, then 1.7 mph) with moderate shortness of breath, with no chest discomfort, with hypertensive response to exercise with max BP 208/ 52, with EKG changes meeting criteria for ischemia: horizontal ST depression 2 mm lead II, 1.5mm lead III, aVF, 1mm V6, with [address] elevation aVR with gradual improvement in recovery. Nuclear images pending. Test reviewed with Dr Anderson. Referred By: Rolando Hunter Overread By: MARIANA OCAMPO
== END ==
LOC: HO.CARD 08:57
PROVIDERS: Visit Provider Internal Medicine Cardiovascular Disease
DX: I95.1 Orthostatic hypotension (principal); R07.89 Other chest pain; I10 Essential (primary) hypertension; E11.9 Type 2 diabetes mellitus without complications; E78.5 Hyperlipidemia, unspecified
CPT/HCPCS: 78452; 93017; A9500; J0280; J2785

== ENCOUNTER → 2020-10-05 08:35 | Outpatient (REF) | payer MEDICARE, SELFPAY | LOC: HO.CARD 08:35 | PROVIDERS: PCP Internal Medicine; Referring Provider Internal Medicine; Visit Provider Internal Medicine Cardiovascular Disease | DX: Z13.89 Encounter for screening for other disorder (principal) ==

== ENCOUNTER → 2020-10-06 11:04 | Outpatient (REF) | payer MEDICARE, SELFPAY ==
--- NOTE | 2020-10-06 | ECG_ITS ---
Hook-up date: 2020-10-05 08:57:00 Duration: 28:34:00 Test Indications: DIZZINESS AND GIDDINESS Medications: 888649 QRS complexes 16 Ventricular ectopics which represent <1 % of total QRS comp. 60 Supraventricular ectopics which represent <1 % of total QRS comp. * Paced QRS complexs which represent % of total QRS comp. VENTRICULAR ECTOPY 14 Isolated 0 Bigeminal Cycles 1 Couplets 0 Runs 0 Beats in Runs * Beats LONGEST at * BPM at :: -- * Beats FASTEST at * BPM at :: -- SUPRAVENTRICULAR ECTOPY 36 Isolated 2 Couplets 5 Runs 20 Beats in Runs 5 Beats LONGEST at 116 BPM at 09:39:32 2020-10-05 3 Beats FASTEST at 145 BPM at 06:56:28 2020-10-06 HEART RATES 54 MIN at 02:09:09 2020-10-06 78 AVG 104 MAX at 08:45:29 2020-10-06 LONGEST RR 1.2640 secs at 22:39:08 2020-10-05 S-T LEVELS Channel 1 - 128 mm at 08:57:00 2020-10-05 - 128 mm at 08:57:00 2020-10-05 Channel 2 - 128 mm at 08:57:00 2020-10-05 - 128 mm at 08:57:00 2020-10-05 Channel 3 - 128 mm at 02:81:61 -- - 128 mm at 02:81:61 Underlying rhythm is sinus; Average ventricular rate 78/min; Rare PACs/PVCs; No sustained arrhythmias; Patient did not report any symptoms in the diary Referred By: Rolando Hunter Overread By: JANESSA GAY
--- NOTE | 2020-10-06 11:07 | CA_ITS ---
Transthoracic Echocardiogram Patient (Last, First, Middle): Sona Hudson, Gender: Female Date of : 1945 Age: 75 Procedure Date: 10/06/2020 Procedure Type: Transthoracic Echocardiogram Location: OP Height: 167.64 cm Weight: 81.65 kg BSA: 1.91 m2 Heart Rate: bpm BP: 140 / 89 mmHg Packing Line Operator: HARSHAD Referring MD: Rolando Hunter MD Symptoms: R07.89 - Other chest pain Conclusions: - 1. Normal LV systolic function with impaired relaxation filling pattern 2. Mild mitral annular calcification with normal cardiac valvular Doppler 3. Normal RV systolic pressure 4. No gross pericardial effusion Findings Left Ventricle Normal left ventricular size, thickness, and systolic function. The visually estimated ejection fraction is between 60-65%. Spectral Doppler is indicative of an impaired relaxation filling pattern. E/E prime ratio is between 8 and 15 consistent with indeterminate filling pressures. Right Ventricle Normal right ventricular cavity size and systolic function. Atria The left atrium is normal in size. Interatrial shunt cannot be excluded. The right atrium is normal in size. Aortic Valve The aortic valve structure and function is likely normal. There is no aortic valve stenosis. There is no aortic valve regurgitation. Mitral Valve There is mild anterior mitral leaflet thickening. There is mild mitral annular calcification. There is trace mitral valve regurgitation. There is no mitral valve stenosis. Pulmonic Valve The pulmonic valve was not well visualized. Tricuspid Valve Likely normal tricuspid valve structure and function. There is trace tricuspid valve regurgitation. The right ventricular systolic pressure is normal. The right ventricular systolic pressure is 28 mmHg. Normal right atrial pressure. There is no evidence of pulmonary hypertension. Great Vessels All visible segments of the aorta are normal in size. The pulmonary artery was not well visualized. Venous The inferior vena cava is normal in size and collapses greater than 50% with inspiration. Pericardium/Pleural There is no evidence of pericardial effusion. Prior Study Comparison No prior study available for comparison. Measurements 2D Linear Measurements IVSd: 1.09 0.6-0.9/0.6-1.0 cm LVIDd: 4.65 3.9-5.3/4.2-5.9 cm LVIDd Index: 2.43 2.4-3.2/2.2-3.1 cm/m2 LVIDs: 3.30 2.0-3.6 cm LVPWd: 1.04 0.7-1.1 cm Ao Root: 2.90 2.1-3.5 cm LA Diam: 3.80 2.7-3.8/3.0-4.0 cm LAIDs Index: 1.99 1.5-2.3 cm/m2 LV Mass: 221.87 67-162/88-224 g LV Mass Index: 116.16 43-95/49-115 g/m2 LVOT Diam: 2.10 3.0+(-)1.3 cm 2D Systolic Function EF 4C: 67.10 >55% EF 2C: 50.90 >55% EF BiP: 59.80 >55% Mitral Valve MV Pk E: 0.75 MV PK A: 1.03 MV Decel Time: 147.00 E/A: 0.70 E'Lateral: 7.72 E'Medial: 5.00 E/E' Med: 15.10 E/E' Lat: 9.80 PHT: 43.00 MVA PHT: 5.12 Decel Cross: 5.13 Aortic Valve AoV Pk Viktor: 1.26 AoV Pk Grad: 6.00 LVOT LVOT Pk Viktor: 0.90 LVOT Mn Viktor: 0.65 LVOT VTI: 0.18 LVOT Pk Grad: 3.00 LVOT Mn Grad: 2.00 LVOT Diam: 2.10 LVOT Area: 3.46 Diastolic Function MV Pk E: 0.75 MV Pk A: 1.03 E/A: 0.70 E'Medial: 5.00 E/E' Med: 15.10 E' Laterial: 7.72 E/E' Lat: 9.80 Right Ventricle TAPSE (mm): 2.77 Tricuspid Valve TR Pk Viktor: 2.50 TR Pk Grad: 25.00 RA Press: 3.00 RVSP: 28.00 Great Vessels Aorta Ao Root-2D: 2.90 2.0-3.7 cm Ao Asc: 3.70 2.1-3.4 cm Updated in Other Vendor System with Status of Final Rolando Hunter MD electronically signed on 10/06/2020 4:28:40 PM with status of Final
== END ==
LOC: HO.CARD 11:04
PROVIDERS: Visit Provider Internal Medicine Cardiovascular Disease
DX: R07.89 Other chest pain (principal); I95.1 Orthostatic hypotension; R42 Dizziness and giddiness
CPT/HCPCS: 93226; 93306

== ENCOUNTER 2020-11-02 08:02 | Outpatient (REF) | payer MEDICARE, SELFPAY | END 2020-11-02 08:03 | disposition home or self-care (01) | LOC: HO.MAMMO 08:02 | PROVIDERS: PCP Internal Medicine; Visit Provider Internal Medicine | DX: Z13.89 Encounter for screening for other disorder (principal) ==

== ENCOUNTER 2020-11-02 12:52 | Outpatient (REF) | payer MEDICARE, SELFPAY ==
--- NOTE | ~2020-11-02 | MM_ITS ---
EXAMINATION: BONE DENSITOMETRY CLINICAL INDICATION: Postmenopausal. COMPARISON: None (current study represents initial baseline exam). TECHNIQUE: Using a [employer] DXA System (software version: 13.1) manufactured by [employer], dual-energy x-ray absorptiometry was performed of the lumbar spine and left hip. The images are of good technical quality. Summary results are attached. FINDINGS: AP SPINE L1-L4: BMD 1.022 g/cm2, Z-score -0.1, T-score -1.3, osteopenia. LEFT FEMUR, NECK: BMD 0.788 g/cm2, Z-score -0.2, T-score -1.8, osteopenia. LEFT FEMUR, TOTAL: BMD 0.883 g/cm2, Z-score 0.4, T-score -1.0, normal. IDENTIFIED RISK FACTORS: Rheumatoid arthritis, recurrent falls, low calcium intake, history of fracture (adult), family history (parent hip fracture). HISTORY OF FRACTURE: Wrist. MEDICATIONS: Calcium, vitamin D. MM/XR DEXA axial skeleton IMPRESSION: 1. DIAGNOSIS: Osteopenia based on the lowest T-score value of -1.8 in the femoral neck applying World Health Organization criteria. 2. 10-YEAR FRACTURE RISK PREDICTION, FRAX: Major osteoporotic fracture (clinical spine, forearm, hip or shoulder) 39.4%. Hip fracture 23.2%. 3. Treatment Recommendations: NOF guidelines recommend consideration for treatment in postmenopausal women and men age 50 and older presenting with the following: -A hip or vertebral (clinical or morphometric) fracture. -T-score less than or equal to -2.5 at the femoral neck or spine after appropriate evaluation to exclude secondary causes. -Low bone mass at the hip or spine and a 10-year fracture probability by FRAX of greater than or equal to 3% for hip fracture or greater than or equal to 20% for major osteoporotic fracture based on the [place] adapted WHO algorithm. 4. Other Recommendations: All treatment decisions require clinical judgment and consideration of individual patient factors, including patient preferences, comorbidities, previous drug use, risk factors not captured in the FRAX model (e.g. frailty, falls, vitamin D deficiency, increased bone turnover, interval significant decline in bone density) and possible under or overestimation of fracture risk by FRAX. Additional medical evaluation for secondary cause of low bone mineral density may be appropriate. FUTURE SCAN RECOMMENDATION: People with diagnosed cases of osteoporosis or at high risk for fracture should have regular bone mineral density tests. For patients eligible for Medicare, routine testing is allowed once every 2 years. The testing frequency can be increased to one year for patients who have rapidly progressing disease, those who are receiving or discontinuing medical therapy to restore bone mass, or have additional risk factors.
== END 2020-11-02 12:53 | disposition home or self-care (01) ==
LOC: HO.MAMMO 12:52
PROVIDERS: PCP Internal Medicine; Visit Provider Internal Medicine
DX: Z13.820 Encounter for screening for osteoporosis (principal); M85.80 Other specified disorders of bone density and structure, unspecified site; N95.9 Unspecified menopausal and perimenopausal disorder; M06.9 Rheumatoid arthritis, unspecified; Z91.81 History of falling; Z87.81 Personal history of (healed) traumatic fracture; Z79.899 Other long term (current) drug therapy
CPT/HCPCS: 77080

== ENCOUNTER 2021-03-08 06:00 | Outpatient (REF) | payer MEDICARE, SELFPAY ==
[2021-03-08 11:45] LABS: Hematocrit 44.7 % (37.0-47.0); Hemoglobin 14.4 g/dl (12.0-16.0); Mean Corpuscular HGB Conc 32.2 g/dl (31.0-35.0); Mean Corpuscular Hemoglobin 29.7 pg (27.0-33.0); Mean Corpuscular Volume 92.2 fL (80.0-98.0); Mean Platelet Volume 11.7 fL (9.4-12.3); Platelet Count 201 X10*3/uL (160-400); Red Blood Count 4.85 X10*6/uL (4.20-5.50); Red Cell Distribution Width 12.3 % (11.0-16.0); White Blood Count 5.8 X10*3/uL (4.8-10.8)
[2021-03-08 11:59] LABS: Alanine Aminotransferase 25 U/L (0-31); Albumin Level 4.1 g/dL (3.5-5.0); Alkaline Phosphatase 74 U/L (39-117); Anion Gap 11 (12-20); Aspartate Amino Transferase 21 U/L (5-31); Bilirubin Total 0.6 mg/dL (0.0-1.0); Blood Urea Nitrogen 15 mg/dL (9-16); Calcium 9.3 mg/dL (8.4-10.2); Carbon Dioxide 26 mmol/L (22-29); Chloride 106 mmol/L (96-108); Cholesterol 181 mg/dL; Estimated Glomerular Filt Rate 55; Glucose Fasting 158 mg/dL (60-99); HDL Cholesterol 49 mg/dL; LDL Cholesterol Calculated 104 mg/dl; Potassium 4.1 mmol/L (3.3-5.1); Sodium 139 mmol/L (135-145); Triglycerides 144 mg/dL
[2021-03-08 12:11] LABS: Estimated Average Glucose 169 mg/dL; Hemoglobin A1c % 7.5 %
[2021-03-08 12:23] LABS: Creatinine Urine 52.77 mg/dL; Microalbumin Urine < 5.0 mg/L
== END 2021-03-08 06:01 | disposition home or self-care (01) ==
LOC: HO.HMGCLDS 06:00
PROVIDERS: PCP Internal Medicine; Visit Provider Internal Medicine
DX: E11.9 Type 2 diabetes mellitus without complications (principal); E78.5 Hyperlipidemia, unspecified; I10 Essential (primary) hypertension
CPT/HCPCS: 36415; 80053; 80061; 82043; 83036; 85027

== ENCOUNTER → 2021-06-13 10:53 | Outpatient (BNVA) | payer MEDICARE, SELFPAY | PROVIDERS: PCP Internal Medicine | DX: R32 Unspecified urinary incontinence (principal); E11.65 Type 2 diabetes mellitus with hyperglycemia; I10 Essential (primary) hypertension; E78.5 Hyperlipidemia, unspecified; Z90.721 Acquired absence of ovaries, unilateral; Z88.1 Allergy status to other antibiotic agents; Z88.8 Allergy status to other drugs, medicaments and biological substances | CPT/HCPCS: 51798; 99202 ==

== ENCOUNTER 2021-06-15 13:53 | Outpatient (REF) | payer MEDICARE, SELFPAY ==
[2021-06-18 23:46] LABS: HPV 16 RNA NOT DETECTED (NOT DETECTED); HPV mRNA E6/E7 rflx Detected (Not Detected)
== END 2021-06-15 13:54 | disposition home or self-care (01) ==
LOC: HO.LAB 13:53
PROVIDERS: PCP Internal Medicine; Visit Provider Obstetrics & Gynecology
DX: Z01.419 Encounter for gynecological examination (general) (routine) without abnormal findings (principal); Z11.51 Encounter for screening for human papillomavirus (HPV); N87.0 Mild cervical dysplasia; Z91.89 Other specified personal risk factors, not elsewhere classified
CPT/HCPCS: 87624; 87625; 88142

== ENCOUNTER 2021-07-19 13:55 | Outpatient (REF) | payer MEDICARE, SELFPAY | END 2021-07-19 13:56 | disposition home or self-care (01) | LOC: HO.LAB 13:55 | PROVIDERS: PCP Internal Medicine; Visit Provider Obstetrics & Gynecology | DX: A63.0 Anogenital (venereal) warts (principal) | CPT/HCPCS: 57454; 88305 ==

== ENCOUNTER → 2021-08-08 15:28 | Outpatient (BNVA) | payer MEDICARE, SELFPAY | PROVIDERS: PCP Internal Medicine; Visit Provider Obstetrics & Gynecology | DX: N87.0 Mild cervical dysplasia (principal) | CPT/HCPCS: 99212 ==

== ENCOUNTER 2021-08-16 06:01 | Outpatient (REF) | payer MEDICARE, SELFPAY ==
[2021-08-16 11:44] LABS: Alanine Aminotransferase 24 U/L (0-31); Alkaline Phosphatase 81 U/L (39-117); Anion Gap 13 (12-20); Aspartate Amino Transferase 19 U/L (5-31); Bilirubin Total 0.7 mg/dL (0.0-1.0); Blood Urea Nitrogen 22 mg/dL (9-16); Calcium 9.3 mg/dL (8.4-10.2); Carbon Dioxide 27 mmol/L (22-29); Chloride 107 mmol/L (96-108); Cholesterol 187 mg/dL; Estimated Glomerular Filt Rate 57; Glucose Fasting 121 mg/dL (60-99); HDL Cholesterol 53 mg/dL; LDL Cholesterol Calculated 112 mg/dl; Potassium 4.1 mmol/L (3.3-5.1); Sodium 143 mmol/L (135-145); Triglycerides 110 mg/dL
[2021-08-16 11:49] LABS: Estimated Average Glucose 148 mg/dL; Hemoglobin A1c % 6.8 %
[2021-08-16 12:07] LABS: Creatinine Urine 85.07 mg/dL; Microalbum/Creatinine Ratio Ur 5.8 ug/mg cr
== END 2021-08-16 06:02 | disposition home or self-care (01) ==
LOC: HO.HMGCLDS 06:01
PROVIDERS: Visit Provider Internal Medicine
DX: E11.9 Type 2 diabetes mellitus without complications (principal); E78.5 Hyperlipidemia, unspecified; I10 Essential (primary) hypertension
CPT/HCPCS: 36415; 80053; 80061; 82043; 83036

== ENCOUNTER → 2021-08-19 09:51 | Outpatient (REF) | payer MEDICARE, SELFPAY ==
--- NOTE | 2021-08-19 09:55 | CA_ITS ---
Acquisition Time: 2021-08-19 10:23:21 Total Exercise Time: 00:02:44 Test Indications: Chest Pain Medications: Protocol: JETHRO Max HR: 096 BPM 66% of Pred: 144 BPM Max BP: 170/060 mmHG Max Work Load: 4.6 METS Exercise stress test with exercise 2 min 44 sec of Jethro protocol, achieving 67% MPHR, with moderate shortness of breath, no chest discomfort, with leg fatigue and unable to walk at faster pace, with isolated PVC, with normotensive response to exercise, with nondiagnostic EKG for ischemia due to suboptimal heart rate and exercise time. Test reviewed with Dr Joseph. Message sent to ordering provider office with report and recommendation for pharmacological nuclear stress test for furthe evaluation. Referred By: Kimberlyn Noland Overread By: MARIANA OCAMPO
== END ==
LOC: HO.CARD 09:51
PROVIDERS: Visit Provider Internal Medicine
DX: R07.9 Chest pain, unspecified (principal)
CPT/HCPCS: 93017

== ENCOUNTER → 2021-08-25 08:53 | Outpatient (REF) | payer MEDICARE, SELFPAY ==
--- NOTE | ~2021-08-25 | NM_ITS ---
Myocardial perfusion study Indication: Chest pain to evaluate for myocardial ischemia Technique: The patient was brought in for a Lexiscan perfusion study on 08/25/2021. Patient performed low-level exercise and was injected 0.4 mg of Lexiscan intravenously. Within a minute of injection, 30 mCi of sestamibi was given intravenously. Images were obtained using the SPECT gamma camera interlaced with the gating device. Images were obtained in supine position. Resting perfusion study was performed on 08/26/2021. Patient was administered 30 mCi of sestamibi intravenously at rest. Images were then obtained in supine position. Images obtained with and without CT attenuation. Total DLP 97 mGy-cm. Images were processed with the software and compared side to side in short axis, horizontal long axis and vertical long axis views. Findings: The stress perfusion study showed non attenuated images show normal uptake of radiotracer in all segments of LV myocardium. Attenuation corrected images show minimally reduced uptake in the distal septum and apical wall of the LV myocardium.. The gated study shows normal LV systolic function with calculated LVEF of 58%. LV cavity is normal in size. The gated study shows normal systolic wall thickening and contraction of segments. Resting study shows no change in perfusion pattern compared to stress perfusion study. Gating at rest reveals normal systolic wall motion with ejection fraction at 57%. The findings are consistent with normal myocardial perfusion. NM/NM cardiolite stress test Impression: 1. Myocardial perfusion imaging study shows normal myocardial perfusion 2. Gated LVEF is 58% 3. Transient ischemic dilatation not present EKG is nondiagnostic for ischemia
--- NOTE | 2021-08-25 09:08 | CA_ITS ---
Acquisition Time: 2021-08-25 09:34:36 Total Exercise Time: 00:02:00 Test Indications: SYNCOPE Medications: Protocol: LEXISCAN Max HR: 102 BPM 70% of Pred: 144 BPM Max BP: 166/078 mmHG Max Work Load: 1.0 METS Pharmacological stress test with Lexiscan injection, while sitting and kicking her legs, without anginal symptoms, without arrythmia, with normotensive response to injection, with nondiagnostic EKG for ischemia, with baseline EKG showing ST abnormality inferiorly which becomes more depressed post injection. In recovery she was treated with Aminophylline 75mg IVP to reverse Lexiscan. Nuclear images pending. Test reviewed with Dr Hunter. Referred By: Kimberlyn Noland Overread By: MARIANA OCAMPO
== END ==
LOC: HO.CARD 08:53
PROVIDERS: PCP Internal Medicine; Visit Provider Internal Medicine Cardiovascular Disease
DX: R07.9 Chest pain, unspecified (principal); I10 Essential (primary) hypertension; R55 Syncope and collapse
CPT/HCPCS: 78452; 93017; A9500; J0280; J2785

== ENCOUNTER → 2021-10-10 10:01 | Outpatient (BNVA) | payer MEDICARE, SELFPAY | PROVIDERS: PCP Internal Medicine; Visit Provider Obstetrics & Gynecology | DX: N87.0 Mild cervical dysplasia (principal) | CPT/HCPCS: 99212 ==

== ENCOUNTER 2021-10-14 09:57 | Day surgery (SDC) | payer MEDICARE, SELFPAY ==
[2021-10-10 11:18] VITALS: BMI 28.0
--- NOTE | 2021-10-12 12:46 | HO.ANESPROP2 ---
Documented by User: Mariely Bergman NP 10/12/21 12:49 HPI - Anesthesia Eval Consult details Narrative: 76yo F for LEEP Medically optimized per PCP PMFSH Active Problems Active Problems: All Active Problems (Updated 08/15/21 @ 14:19 by Kimberlyn Noland MD) Colonoscopy refused (Acute) Osteoporosis (Acute) Chest pain (Acute) At high risk for fracture (Acute) Urinary incontinence (Acute) Contact dermatitis (Acute) Headache (Acute) Annual physical exam (Acute) Menopausal disorder (Acute) Hypertension (Acute) Hyperlipemia (Acute) Urinary incontinence (Acute) DM type 2 (diabetes mellitus, type 2) (Acute) WILBUR I (cervical intraepithelial neoplasia I) (Acute) Thickened endometrium (Acute) Potential exposure to STD (Acute) HPV (human papilloma virus) infection (Acute) Well woman exam with routine gynecological exam (Acute) Past Medical History Medical History Annual physical exam Carpal tunnel syndrome on both sides Chest pain Colonoscopy refused Dizziness DM type 2 (diabetes mellitus, type 2) HPV (human papilloma virus) infection HSV (herpes simplex virus) infection Hyperglycemia Hyperlipemia Hypertension Menopausal disorder Osteoporosis Pruritus Urinary incontinence Urinary incontinence Family History Family History Father No problems noted. Mother No problems noted. Surgical History Surgical History Hx of unilateral oophorectomy Social History Social History Housing: House Alcohol intake: never Patient Tobacco Use Status: Never used Tobacco e-Cigarette/Vaping Use: Never Used Second Hand Smoke Exposure: No Use of substances other than those prescribed or required for medical reasons: No Are you DNR?: No Advance Directives: No Advance Directives Information Provided: Yes How much weight loss: 2-13 pounds Nutrition Risks: No Nutritional Risk service: No Current occupational status: employed Current occupational exposures/hazards: No Sexual orientation: Straight/Heterosexual Gender identity: Female Meds Allergies Allergy/AdvReac Type Severity Reaction Status Date / Time hydrochlorothiazide Allergy Intermediate Nausea Verified 10/10/21 11:18 triamterene Allergy Intermediate nausea Verified 10/10/21 11:18 clarithromycin [From Biaxin] Allergy Unknown unknown Verified 08/08/21 15:45 doxycycline Allergy Unknown unknown Verified 08/08/21 15:45 alendronate sodium AdvReac Intermediate Dizziness Verified 08/15/21 14:19 lisinopril AdvReac Intermediate cough Verified 10/10/21 11:18 Home Medications Medication Instructions Recorded Confirmed Last Taken Type ascorbic acid (vitamin C) 500 mg 50 mg PO DAILY 09/02/20 10/10/21 09/02/20 History tablet (Vitamin C) cholecalciferol (vitamin D3) 25 25 mcg PO DAILY 09/02/20 10/10/21 Unknown History mcg (1,000 unit) capsule (Vitamin D3) omega-3 fatty acids 1 cap PO DAILY 09/02/20 10/10/21 Unknown History Exam Exam Date and Time: October 12, 2021 1246 Height,Weight and Vital Signs: Height 5 ft 6 in Weight 78.925 kg Pertinent Lab Results Pertinent Lab Results: Laboratory Tests 03/08/21 08/16/21 06:08 06:10 WBC 5.8 Hgb 14.4 Hct 44.7 Plt Count 201 Sodium 143 Potassium 4.1 Chloride 107 Carbon Dioxide 27 BUN 22 H Creatinine 0.95 Narrative Narrative: NM cardiolite stress test 08/2021 Impression: ? 1.? Myocardial perfusion imaging study shows normal myocardial perfusion 2.? Gated LVEF is 58% 3. Transient ischemic dilatation not present ? EKG is nondiagnostic for ischemia EKG 07/2022 NSR, 1st deg AV block, LVH ECHO 2020 Conclusions: - 1. Normal LV systolic function with impaired relaxation filling pattern? 2. Mild mitral annular calcification with normal cardiac valvular Doppler? 3. Normal RV systolic pressure ? 4. No gross pericardial effusion ? ? Assessment and Plan Assessment Anesthesia Assessment: Chart Reviewed Documented by User: Mary Ball MD 10/14/21 11:51 PMFSH Past Medical History Medical History Annual physical exam Carpal tunnel syndrome on both sides Chest pain Colonoscopy refused Dizziness DM type 2 (diabetes mellitus, type 2) HPV (human papilloma virus) infection HSV (herpes simplex virus) infection Hyperglycemia Hyperlipemia Hypertension Menopausal disorder Osteoporosis Pruritus Urinary incontinence Urinary incontinence Family History Family History Father No problems noted. Mother No problems noted. Family history of problems with anesthesia: No Surgical History Surgical History Hx of unilateral oophorectomy History of Problems with Anesthesia: No Social History Social History Housing: House Alcohol intake: never Patient Tobacco Use Status: Never used Tobacco e-Cigarette/Vaping Use: Never Used Second Hand Smoke Exposure: No Use of substances other than those prescribed or required for medical reasons: No Are you DNR?: No Advance Directives: No Advance Directives Information Provided: Yes How much weight loss: 2-13 pounds Nutrition Risks: No Nutritional Risk service: No Current occupational status: employed Current occupational exposures/hazards: No Sexual orientation: Straight/Heterosexual Gender identity: Female Meds Allergies Allergy/AdvReac Type Severity Reaction Status Date / Time hydrochlorothiazide Allergy Intermediate Nausea Verified 10/10/21 11:18 triamterene Allergy Intermediate nausea Verified 10/10/21 11:18 clarithromycin [From Biaxin] Allergy Unknown unknown Verified 08/08/21 15:45 doxycycline Allergy Unknown unknown Verified 08/08/21 15:45 alendronate sodium AdvReac Intermediate Dizziness Verified 08/15/21 14:19 lisinopril AdvReac Intermediate cough Verified 10/10/21 11:18 Home Medications Medication Instructions Recorded Confirmed Last Taken Type ascorbic acid (vitamin C) 500 mg 50 mg PO DAILY 09/02/20 10/10/21 09/02/20 History tablet (Vitamin C) cholecalciferol (vitamin D3) 25 25 mcg PO DAILY 09/02/20 10/10/21 Unknown History mcg (1,000 unit) capsule (Vitamin D3) omega-3 fatty acids 1 cap PO DAILY 09/02/20 10/10/21 Unknown History Exam Height,Weight and Vital Signs: Height 5 ft 6 in Weight 78.925 kg Vital Signs Temp Pulse Resp BP Pulse Ox O2 Del Method 10/14/21 11:24 98.1 F 84 16 185/51 H 96 Room Air Pertinent Lab Results Pertinent Lab Results: Laboratory Tests 03/08/21 08/16/21 06:08 06:10 WBC 5.8 Hgb 14.4 Hct 44.7 Plt Count 201 Sodium 143 Potassium 4.1 Chloride 107 Carbon Dioxide 27 BUN 22 H Creatinine 0.95 Lab Results 10/14/21 10/14/21 Range/Units 11:08 11:28 POC Glucose 128 H (60-115) mg/dL COVID-19 ([facility]) Negative (Negative) COVID-19 Clin Com See Note Airway Mallampati Class: II TM Dist: >3cm Neck ROM: Full Denture: Upper and Lower Heart: RRR Lungs: CTAB Assessment and Plan Assessment Anesthesia Assessment: Anesthesia Plan Discussed Final Anesthetic Review Family History of Problems with Anesthesia: No History of Problems with Anesthesia: No NPO: Yes ASA Class: III Final Preanesthetic Review: No Changes in Pt Med Stat, Meds/Allgs Chart Reviewed, Consent Obtained/Reviewed and Anes Risks/Benef Reviewed Patient Risk: Intermediate Procedure Risk: Low Assessment/Block/Sedation in SS: Assess/Block/Sedation-SS Anesthetic Plan Anesthetic Plan: GA Disposition: Standard PACU
[2021-10-14] VITALS (9 sets, daily range): BP systolic 136–185; BP diastolic 51–79; PULSE 84–96; RESP 12–19; TEMP 36.4–36.8; O2SAT 93–97; BMI 28.7
--- NOTE | 2021-10-14 11:16 | PC.NURSE ---
arrived from [place] per daughter on october 04. covid swabbed.
[2021-10-14 11:32] LABS: Glucose, Whole Blood 128 mg/dL (60-115)
--- NOTE | 2021-10-14 11:43 | MHC.SHP ---
Pre-Procedural Eval Section A Date of Service: 10/14/21 The patient is an INPATIENT: No Changes since office visit: No Cold of Flu in the past 2 weeks, No New Medical Problems, No Changes in Medication and No Patient answered all questions The History & Physical has been completed within 30 days and I have reviewed it.: Yes Section B Chief Complaint: Mild cervical dysplasia Allergies: Allergies Allergy/AdvReac Type Severity Reaction Status Date / Time hydrochlorothiazide Allergy Intermediate Nausea Verified 10/10/21 11:18 triamterene Allergy Intermediate nausea Verified 10/10/21 11:18 clarithromycin [From Biaxin] Allergy Unknown unknown Verified 08/08/21 15:45 doxycycline Allergy Unknown unknown Verified 08/08/21 15:45 alendronate sodium AdvReac Intermediate Dizziness Verified 08/15/21 14:19 lisinopril AdvReac Intermediate cough Verified 10/10/21 11:18 Plan Diagnosis/Plan: Unchanged I have reviewed the history and physical and performed a pertinent physical examination on my patient. No changes have occurred unless specified.
[2021-10-14 11:46] LABS: COVID-19 Test Negative (Negative)
[2021-10-14] MEDS: Lactated Ringers 1,000 ML 100 ML IVCONT (11:55)
--- NOTE | 2021-10-14 13:16 | PM.OP ---
Brief Operative Note Date of Service: 10/14/21 Pre-op diagnosis: Persistent WILBUR 1 Post-op diagnosis: same Procedure: LEEP CONE with post CONE ECC Surgeon: Bradley Turcios MD Anesthesia: GLMA, local and other (Paracervical block) Was an Internet Marketing Consultant used for this Procedure?: No Estimated blood loss (mL): 0 Pathology: other (Cervical cone, deeper layer cervical cone, Endocx, Post cone ECC) Condition: stable Disposition: other (Home)
--- NOTE | 2021-10-14 13:17 | W.PM.OPN ---
Operative Note Operative Note Date of Service: 10/14/21 Narrative: Pre op diagnosis: Persistent WILBUR 1 Operation: Colposcopy, Loop electrical excision procedure cone, top hat endocervical excision, post cone ECC Postop diagnosis: the same Quantitative blood loss: Enema Surgeon: Bradley Turcios MD, FACOG Bench Assembly Inspector: None Pathology: Cervical cone, deeper cervical cone layer excision, excision of endocervix, endo cervical curettage Complications: none Anesthesia: G LMA and Para cervical block Procedure: The patient was put in a dorsal lithotomy position, scrubbed and draped in the usual sterile fashion. A speculum was inserted inside the patient's vagina. The cervix is assessed using the colposcope with acetic acid , the lesions were seen, and at least 1 cm of the squamocolumnar junction was observed. 20 x10 mm size loop was selected based upon the diameter of the lesion. Lugol solution was used to outline the lesions and area of the transformation zone order to be removed 10 cc of xylocaine with epinephrine were injected submucosally into the surface of the cervix (ectocervix) at the 3, 6, 9, and 12 o'clock positions. The electrosurgical generator is set at 40 vences on blend 1. The loop is carefully passed simultaneously around and under the transformation zone, in order to ensure excising it making sure the lesion is at least 5 mm far from the specimen margins . The loop was allowed to glide through the cervix from one side to the other, allowing the cutting current to divide the tissue, this was followed by deeper layer excision of the cervical cone to ensure excision of the abnormal pathology. Since the entire endo cervical canal was not visualized well, endo cervical disease could be beyond the reach of the loop, additional endo cervical tissue excision was performed An endo cervical curettage is performed following completion of excision, and hemostasis is obtained with a Ball electrode or regular tip cautery. At the end, Monsel's solution was applied to the cone bed. The patient tolerated the procedure well and, all instruments were taken out of the patient vaginal cavity, and the patient was transferred to the PACU in stable condition.
== END 2021-10-14 15:15 | disposition home or self-care (01) ==
PROVIDERS: Anesthesiology; PCP Internal Medicine; Visit Provider Obstetrics & Gynecology
PROC: 0UBC7ZZ Excision of Cervix, Via Natural or Artificial Opening (ICD-10-PCS; CPT 57522; principal; 2021-10-14 14:10)
DX: N87.0 Mild cervical dysplasia (principal); A63.0 Anogenital (venereal) warts; B00.9 Herpesviral infection, unspecified; M81.0 Age-related osteoporosis without current pathological fracture; E78.5 Hyperlipidemia, unspecified; R42 Dizziness and giddiness; L29.9 Pruritus, unspecified; E11.9 Type 2 diabetes mellitus without complications; Z79.84 Long term (current) use of oral hypoglycemic drugs; Z79.899 Other long term (current) drug therapy; Z88.1 Allergy status to other antibiotic agents; Z88.8 Allergy status to other drugs, medicaments and biological substances; Z20.822 Contact with and (suspected) exposure to COVID-19
CPT/HCPCS: 57461; 82947; 87635; 88305; 88307; J1100; J1885; J2405; J3010

== ENCOUNTER → 2021-10-27 14:09 | Outpatient (BNVA) | payer MEDICARE, SELFPAY | PROVIDERS: PCP Internal Medicine; Visit Provider Obstetrics & Gynecology | DX: N87.0 Mild cervical dysplasia (principal) | CPT/HCPCS: 99212 ==

== ENCOUNTER 2021-12-07 06:11 | Outpatient (REF) | payer MEDICARE, SELFPAY ==
[2021-12-07 11:39] LABS: Estimated Average Glucose 148 mg/dL; Hemoglobin A1C 188.6037 umol/L; Hemoglobin A1c % 6.8 %
[2021-12-07 11:41] LABS: Hematocrit 43.9 % (37.0-47.0); Hemoglobin 14.4 g/dl (12.0-16.0); Mean Corpuscular HGB Conc 32.8 g/dl (31.0-35.0); Mean Corpuscular Hemoglobin 30.2 pg (27.0-33.0); Mean Platelet Volume 11.9 fL (9.4-12.3); Platelet Count 188 X10*3/uL (160-400); Red Blood Count 4.77 X10*6/uL (4.20-5.50); Red Cell Distribution Width 12.4 % (11.0-16.0); White Blood Count 6.8 X10*3/uL (4.8-10.8)
[2021-12-07 11:56] LABS: Alanine Aminotransferase 23 U/L (0-31); Albumin Level 4.1 g/dL (3.5-5.0); Alkaline Phosphatase 60 U/L (39-117); Anion Gap 13 (12-20); Aspartate Amino Transferase 17 U/L (5-31); Bilirubin Total 0.7 mg/dL (0.0-1.0); Blood Urea Nitrogen 16 mg/dL (9-16); Calcium 9.2 mg/dL (8.4-10.2); Carbon Dioxide 25 mmol/L (22-29); Chloride 108 mmol/L (96-108); Cholesterol 175 mg/dL; Estimated Glomerular Filt Rate 58; Glucose Fasting 145 mg/dL (60-99); HDL Cholesterol 51 mg/dL; LDL Cholesterol Calculated 96 mg/dl; Sodium 142 mmol/L (135-145); Total Protein 6.9 g/dL (6.5-8.0); Triglycerides 140 mg/dL
== END 2021-12-07 06:12 | disposition home or self-care (01) ==
LOC: HO.HMGCLDS 06:11
PROVIDERS: PCP Internal Medicine; Visit Provider Internal Medicine
DX: E11.9 Type 2 diabetes mellitus without complications (principal); I10 Essential (primary) hypertension; E78.5 Hyperlipidemia, unspecified
CPT/HCPCS: 36415; 80053; 80061; 83036; 85027

== ENCOUNTER 2022-01-09 08:06 | Outpatient (REF) | payer MEDICARE, SELFPAY ==
--- NOTE | ~2022-01-09 | US_ITS ---
EXAMINATION: US ABDOMEN COMPLETE CLINICAL INFORMATION: Unspecified abdominal pain. COMPARISON: CT abdomen and pelvis with contrast 12/08/2019. TECHNIQUE: Real-time imaging of the abdominal viscera. FINDINGS: PANCREAS: Normal. ABDOMINAL AORTA: The proximal, mid, and distal segments are normal in caliber. INFERIOR VENA CAVA: Visualized portions are normal. LIVER: The liver is normal in size. The liver contour is normal. Parenchymal echogenicity is mildly increased. There is a focal area of fatty sparing adjacent to the gallbladder measuring 3.88 x 2.8 x 3.9 cm. There is no intrahepatic biliary duct dilatation seen. GALLBLADDER: Normal. The gallbladder is physiologically distended without evidence of stones, sludge, polyps, wall thickening or pericholecystic fluid. COMMON BILE DUCT: Normal in caliber measuring 0.6 cm in diameter. RIGHT KIDNEY: There is an echogenic nonobstructive stone in the lower pole measuring 0.3 x 0.29 x 0.38 cm. Anechoic cyst in the lower pole measuring 0.92 x 0.85 x 0.90 cm. No hydronephrosis The kidney measures 9.5 cm in maximum dimension. There is normal cortical thickness. LEFT KIDNEY: There is anechoic cyst in the midpole measuring 1.0 x 1.0 x 0.61 cm. No hydronephrosis or renal calculi. The kidney measures 11.0 cm in maximum dimension. There is normal cortical thickness. SPLEEN: Normal. The spleen measures 9.7 cm in maximum dimension. FREE FLUID: None. US/US abdomen complete IMPRESSION: 1. Bilateral renal cysts. 2. Nonobstructive echogenic stone lower pole right kidney. 3. Mild fatty infiltration of liver with focal area of fatty sparing adjacent to the gallbladder. 4. Rest of the abdominal ultrasound is unremarkable.
== END 2022-01-09 08:07 | disposition home or self-care (01) ==
LOC: HO.HMGCX 08:06
PROVIDERS: PCP Internal Medicine; Visit Provider Internal Medicine
DX: R10.9 Unspecified abdominal pain (principal)
CPT/HCPCS: 76700

== ENCOUNTER → 2022-05-01 13:05 | Outpatient (BNVA) | payer MEDICARE, SELFPAY | PROVIDERS: PCP Internal Medicine; Visit Provider Nurse Practitioner Family | DX: R32 Unspecified urinary incontinence (principal) | CPT/HCPCS: 51798; 99212 ==

== ENCOUNTER → 2022-05-22 13:50 | Outpatient (BNVA) | payer MEDICARE, SELFPAY | PROVIDERS: PCP Internal Medicine; Visit Provider Physician Assistant | DX: K21.9 Gastro-esophageal reflux disease without esophagitis (principal); R10.9 Unspecified abdominal pain; Z78.9 Other specified health status | CPT/HCPCS: 99212 ==

== ENCOUNTER 2022-06-03 06:33 | Outpatient (REF) | payer MEDICARE, SELFPAY ==
[2022-06-03 11:19] LABS: MANUAL DIFF FLAG NO
[2022-06-03 11:26] LABS: Basophils Percent Auto 0.6 % (0-2); Eosinophils Absolute Auto 0.2 X10*3/uL (0.0-0.4); Hemoglobin 14.1 g/dl (12.0-16.0); Imm Gran Abs Auto 0.01 X10*3/uL (0.00-0.03); Imm Gran Pct Auto 0.1 % (0.0-0.4); Lymphocytes Absolute Auto 2.4 X10*3/uL (1.2-4.9); Lymphocytes Percent Auto 34.2 % (20-40); Mean Corpuscular Hemoglobin 29.4 pg (27.0-33.0); Mean Corpuscular Volume 91.9 fL (80.0-98.0); Mean Platelet Volume 11.7 fL (9.4-12.3); Monocytes Absolute Auto 0.5 X10*3/uL (0.1-1.2); Monocytes Percent Auto 7.2 % (2-11); Neutrophils Absolute Auto 3.8 x10*3/uL (2.0-8.3); Neutrophils Percent Auto 54.9 % (45-73); Platelet Count 187 X10*3/uL (160-400); Red Blood Count 4.79 X10*6/uL (4.20-5.50); White Blood Count 6.9 X10*3/uL (4.8-10.8)
[2022-06-03 11:37] LABS: Estimated Average Glucose 180 mg/dL; Hemoglobin A1c % 7.9 %
[2022-06-03 11:42] LABS: Alanine Aminotransferase 20 U/L (0-31); Albumin Level 3.9 g/dL (3.5-5.0); Alkaline Phosphatase 75 U/L (39-117); Anion Gap 10 (12-20); Aspartate Amino Transferase 17 U/L (5-31); Bilirubin Total 0.8 mg/dL (0.0-1.0); Blood Urea Nitrogen 21 mg/dL (9-16); Calcium 8.6 mg/dL (8.4-10.2); Carbon Dioxide 28 mmol/L (22-29); Chloride 107 mmol/L (96-108); Cholesterol 193 mg/dL; Estimated Glomerular Filt Rate 56; Glucose Fasting 163 mg/dL (60-99); HDL Cholesterol 49 mg/dL; LDL Cholesterol Calculated 120 mg/dl; Potassium 3.9 mmol/L (3.3-5.1); Sodium 141 mmol/L (135-145); Total Protein 6.7 g/dL (6.5-8.0); Triglycerides 121 mg/dL
[2022-06-03 12:00] LABS: Creatinine Urine 44.16 mg/dL; Microalbumin Urine < 5.0 mg/L
== END 2022-06-03 06:34 | disposition home or self-care (01) ==
LOC: HO.LAB 06:33
PROVIDERS: PCP Internal Medicine; Visit Provider Internal Medicine
DX: E11.9 Type 2 diabetes mellitus without complications (principal); E78.5 Hyperlipidemia, unspecified; I10 Essential (primary) hypertension
CPT/HCPCS: 36415; 80053; 80061; 82043; 83036; 85025

== ENCOUNTER 2022-07-12 10:19 | Outpatient (REF) | payer MEDICARE, SELFPAY ==
--- NOTE | ~2022-07-12 | FL_ITS ---
EXAMINATION: FLUOROSCOPIC ESOPHAGRAM, BARIUM SWALLOW CLINICAL INFORMATION: Dysphagia. COMPARISON: None. TECHNIQUE: The barium swallow esophagram study is performed. The patient drank thick and thin barium consistencies under fluoroscopic observation with digital image acquisition. The patient was observed during swallowing in the lateral projection using a cine loop sequence. The patient also swallowed a 13 mm barium tablet with water under fluoroscopic observation. FINDINGS: Normal control of the liquid bolus with normal inversion of the epiglottis. No laryngeal penetration or aspiration. Esophageal dysmotility with delayed emptying and tertiary contractions. No hiatal hernia. No spontaneous gastroesophageal reflux. The barium tablet coursed promptly into the stomach. No stricture. Total dose 28.468 mGy DAP 4.493 Gycm/2 Time 1.1 min FL/FL barium swallow IMPRESSION: Esophageal dysmotility with delayed emptying and tertiary contractions.
== END 2022-07-12 10:20 | disposition home or self-care (01) ==
LOC: HO.XRAY 10:19
PROVIDERS: PCP Internal Medicine; Visit Provider Physician Assistant
DX: R10.9 Unspecified abdominal pain (principal); K21.9 Gastro-esophageal reflux disease without esophagitis
CPT/HCPCS: 74220

== ENCOUNTER 2022-08-26 07:26 | Outpatient (REF) | payer MEDICARE, SELFPAY ==
[2022-08-26 11:46] LABS: Estimated Average Glucose 154 mg/dL
[2022-08-26 11:54] LABS: Alanine Aminotransferase 21 U/L (0-31); Alkaline Phosphatase 94 U/L (39-117); Anion Gap 15 (12-20); Aspartate Amino Transferase 17 U/L (5-31); Bilirubin Total 0.9 mg/dL (0.0-1.0); Blood Urea Nitrogen 17 mg/dL (9-16); Calcium 9.1 mg/dL (8.4-10.2); Carbon Dioxide 25 mmol/L (22-29); Chloride 110 mmol/L (96-108); Cholesterol 172 mg/dL; Estimated Glomerular Filt Rate 59; Glucose Fasting 137 mg/dL (60-99); HDL Cholesterol 49 mg/dL; LDL Cholesterol Calculated 92 mg/dl; Potassium 3.8 mmol/L (3.3-5.1); Sodium 146 mmol/L (135-145); Triglycerides 156 mg/dL
[2022-08-26 11:59] LABS: Creatinine Urine 93.46 mg/dL; Microalbum/Creatinine Ratio Ur 9.6 ug/mg cr
[2022-08-26 12:10] LABS: TSH reflex Free T4 2.23 uIU/mL (0.32-4.0)
== END 2022-08-26 07:27 | disposition home or self-care (01) ==
LOC: HO.HMGCLDS 07:26
PROVIDERS: PCP Internal Medicine; Visit Provider Internal Medicine
DX: E78.5 Hyperlipidemia, unspecified (principal); I10 Essential (primary) hypertension; E11.9 Type 2 diabetes mellitus without complications
CPT/HCPCS: 36415; 80053; 80061; 82043; 83036; 84443

== ENCOUNTER 2022-09-20 13:28 | Outpatient (REF) | payer MEDICARE, SELFPAY ==
[2022-09-28 09:14] LABS: HPV 16 RNA NOT DETECTED (NOT DETECTED); HPV mRNA E6/E7 rflx Detected (Not Detected)
== END 2022-09-20 13:29 | disposition home or self-care (01) ==
LOC: HO.LNP 13:28
PROVIDERS: PCP Internal Medicine; Visit Provider Obstetrics & Gynecology
DX: Z01.419 Encounter for gynecological examination (general) (routine) without abnormal findings (principal); Z78.0 Asymptomatic menopausal state
CPT/HCPCS: 87624; 87625; 88142

== ENCOUNTER 2022-10-30 15:16 | Outpatient (AMB) | payer MEDICARE, SELFPAY ==
--- NOTE | 2022-10-30 15:21 | A.OFFVIS_ITS ---
Intake Intake Visit Reasons: 6m follow up/PVR Intake Note: Patient is present for follow up urinary incontinence Urology Medication: solifenacin Blood Thinner: none PVR: 0ml's Vocational Education Teacher Required: Yes Vocational Education Teacher Name: lenin diaz [id number] Accompanied by: Self / Same As Patient Allergies hydrochlorothiazide Allergy (Intermediate, Verified 10/30/22 23:39) Nausea triamterene Allergy (Intermediate, Verified 10/30/22 23:39) nausea clarithromycin [From Biaxin] Allergy (Unknown, Verified 10/30/22 23:39) unknown doxycycline Allergy (Unknown, Verified 10/30/22 23:39) unknown alendronate sodium Adverse Reaction (Intermediate, Verified 10/30/22 23:39) Dizziness lisinopril Adverse Reaction (Intermediate, Verified 10/30/22 23:39) cough Medication List - Last Reconciled 10/30/22 by CAITLIN Mathew- amlodipine 5 mg PO DAILY ascorbic acid (vitamin C) (Vitamin C) 50 mg PO DAILY atorvastatin 40 mg PO DAILY cholecalciferol (vitamin D3) (Vitamin D3) 25 mcg PO DAILY famotidine (Pepcid) 40 mg PO BEDTIME glipizide ER 2.5 mg PO BID hydrocortisone 2.5% 1 appl topical BID-TID PRN loratadine 10 mg PO DAILY metoprolol succinate ER 100 mg PO DAILY omega-3 fatty acids 1 cap PO DAILY omeprazole 20 mg PO DAILY solifenacin 10 mg PO DAILY 90 days triamcinolone acetonide 0.1% 1 appl topical DAILY HPI HPI Comments History of Present Illness Details Sona is a pleasant 77 year old sami speaking patient of Dr. Noland. She has a past medical history of carpal tunnel, type 2 diabetes, HPV, herpes simplex virus, hyperlipidemia, hypertension, osteoporosis, and urinary incontinence. She present to the office today for a follow up urinary incontinence. When asked reports to be doing well. She reports significant improvement in urinary symptoms on VESIcare 10 mg daily. She denies any bothersome urinary issues at this time. When asked she denies urinary urgency, urinary frequency, incontinence, nocturia, hematuria, dysuria, foul smelling urine, changes to urinary stream, flank pain, fever, and or chills. She is happy with her current voiding parameters on Vesicare 10mg daily. In office urinalysis results reviewed with the patient today. PVR 0 mL. She discusses following up with her PCP for right lower leg rash and discusses her referral to a specialist regarding this issue. She otherwise offers no issues or concerns at this time. [facility] Medical History Annual physical exam Carpal tunnel syndrome on both sides Chest pain Colonoscopy refused Dizziness DM type 2 (diabetes mellitus, type 2) HPV (human papilloma virus) infection HSV (herpes simplex virus) infection Hyperglycemia Hyperlipemia Hypertension Menopausal disorder Osteoporosis Pruritus Urinary incontinence Urinary incontinence Surgical History Hx of unilateral oophorectomy Family History Father No problems noted. Mother No problems noted. Social History Housing: House Alcohol intake: never Patient Tobacco Use Status: Never used Tobacco e-Cigarette/Vaping Use: Never Used Second Hand Smoke Exposure: No service: No Current occupational status: employed Current occupational exposures/hazards: No Sexual orientation: Straight/Heterosexual Gender identity: Female Cognitive needs: No Hearing needs: No Vision needs: Yes Review of Systems Const Reports as per HPI Eyes Reports no additional complaints ENT Reports no additional complaints Card Reports as per HPI Resp Reports no additional complaints GI Reports as per HPI Reports as per HPI Musc Reports as per [facility] Skin/Breast Reports as per HPI Neuro Reports as per [facility] Endo Reports as per HPI Physical Exam Const General: cooperative, healthy appearing, comfortable, no acute distress, well developed, alert and awake Orientation/consciousness: patient oriented x3 Limitations: no limitations HEENT Head: Yes normal to inspection, Yes normocephalic and Yes atraumatic Ears: hearing grossly normal bilaterally Eyes General: appearance normal, both eyes and all related structures Neck Neck: Yes normal visual inspection and Yes trachea midline Chest Chest palpation & inspection: normal inspection of the chest Resp Effort & Inspection: normal respiratory effort and able to speak in complete sentences Cardio Rate: regular rate GI Inspection: Yes normal to inspection General: Yes no CVA tenderness Back/Spine/Pelvis Back: no CVA tenderness Skin General skin exam: no rashes or lesions noted Neuro General: patient oriented x3 Extrem General: Yes normal to inspection Psych Appearance: grossly normal and well kempt Mental Status: mental status grossly normal Speech and movement: Normal speech and movement present and Clear speech present Affect: normal affect Attitude: cooperative Thought process: Normal thought process present Thought content: Normal thought content present Insight: Fair insight present (Psych) Judgement: Fair judgement present (Psych) Office Procedures Post Void Residual Post Residual Void Post Void Residual (PVR): 0 [id number]-[id number] Void Residual by ultrasound Results AMB Urinalysis, Automated UA Leukoctes 500 Wilfredo/uL Last Edit by [employer] on 10/30/22 15:42 UA Nitrite Last Edit by [employer] on 10/30/22 15:42 UA Urobilinogen 0.2 mg/dL Last Edit by [employer] on 10/30/22 15:42 UA Protein 15 mg/dL Last Edit by [employer] on 10/30/22 15:42 UA pH 6.0 Last Edit by [employer] on 10/30/22 15:42 UA Blood 0 Grover/uL Last Edit by [employer] on 10/30/22 15:42 UA Specific [place] 1.020 Last Edit by [employer] on 10/30/22 15:42 UA Ketone Negative Last Edit by [employer] on 10/30/22 15:42 UA Bilirubin 0 mg/dL Last Edit by [employer] on 10/30/22 15:42 UA Glucose 0 mg/dL Last Edit by [employer] on 10/30/22 15:42 Results Reviewed Results Reviewed: Laboratory Last Values Urine pH (Auto) 6.0 10/30/22 15:22 Specific [place] (Auto) 1.020 10/30/22 15:22 Urine Protein (Auto) 15 mg/dL 10/30/22 15:22 Glucose (UA)(Auto) 0 mg/dL 10/30/22 15:22 Urine Ketones (Auto) Negative 10/30/22 15:22 Urine Blood (Auto) 0 Grover/uL 10/30/22 15:22 Urine Bilirubin (Auto) 0 mg/dL 10/30/22 15:22 Urine Urobilinogen (Auto) 0.2 mg/dL 10/30/22 15:22 Leukocyte Esterase (Auto) 500 Wilfredo/uL 10/30/22 15:22 Assessment & Plan Assessment & Plan (1) Urinary incontinence: Code(s): R32 - Unspecified urinary incontinence (2) Renal cyst: Code(s): N28.1 - Cyst of kidney, acquired Plan In office urinalysis results reviewed with the patient today; as noted above. PVR 0 mL. Patient reports to be happy with current voiding parameters on 10 mg of VESIcare. Continue VESIcare as discussed and prescribed; refill provided. Patient denies any urinary issues or concerns at this time. Retroperitoneal ultrasound in 1 year Follow-up in 1 year with PVR and imaging to be completed prior; or sooner with any issues, concerns, and or questions. Orders: Orders AMB Urinalysis Automated 10/30/22 Z13.9 - Encounter for screening, unspecified AMB Post Void Residual by ultrasound 10/30/22 R32 - Unspecified urinary incontinence US retroperitoneal comp 364 Days N28.1 - Cyst of kidney, acquired, R32 - Unspecified urinary incontinence Medications: Refilled solifenacin 10 mg PO DAILY 90 tabs 4RF 90 days Patient Instructions: The patient had an opportunity to ask questions regarding the treatment plan. All questions were answered. Physical exam, labs, and imaging were discussed and reviewed in detail. As well as risks, benefits, and discussion of treatment choices. No major barriers to understanding were identified. The patient expressed understanding and agreement with the above treatment plan. The patient was made aware they should contact our office by phone for worsening of their current condition, the appearance of new symptoms, or with any questions or concerns. Compliance is encouraged with any medications and follow up testing that is ordered. It is a privilege to be allowed the opportunity to participate in? your urological care.? Again, if you have any questions or concerns If you have any questions or concerns please do not hesitate to contact me. The office is [phone]. This note is constructed using voice recognition software. While every effort has been made to ensure accuracy inspector eyeglass frames errors may have been included. Yours sincerely, ROBBIN Mathew Coding Level of Care Code Est Pt Level 3 (24103) Diagnoses Urinary incontinence R32 Renal cyst N28.1 CPT Codes Post Residual Void - PVR CPT Code: 39177-Okvx Void Residual by ultrasound ([id number])
== END 2022-10-30 16:10 | disposition home or self-care (01) ==
PROVIDERS: Visit Provider Nurse Practitioner Family
DX: R32 Unspecified urinary incontinence (principal); N28.1 Cyst of kidney, acquired
CPT/HCPCS: 99213

== ENCOUNTER → 2022-10-30 15:16 | Outpatient (BNVA) | payer MEDICARE, SELFPAY | PROVIDERS: Visit Provider Nurse Practitioner Family | DX: R32 Unspecified urinary incontinence (principal); N28.1 Cyst of kidney, acquired; E11.9 Type 2 diabetes mellitus without complications; Z79.899 Other long term (current) drug therapy | CPT/HCPCS: 51798; 99212 ==

== ENCOUNTER 2022-11-03 14:47 | Outpatient (REF) | payer MEDICARE, SELFPAY ==
--- NOTE | ~2022-11-03 | MM_ITS ---
EXAMINATION: BONE DENSITOMETRY CLINICAL INDICATION: Asymptomatic menopausal state. COMPARISON: Baseline BD dated 11/02/2020. TECHNIQUE: Using a [employer] DXA System (software version: 13.1) manufactured by [employer], dual-energy x-ray absorptiometry was performed of the lumbar spine and left hip. The images are of good technical quality. Summary results are attached. FINDINGS: LEFT FEMUR, NECK: Current: BMD 0.787 g/cm2, Z-score -0.1, T-score -1.8, osteopenia. Baseline: BMD 0.788 g/cm2. LEFT FEMUR, TOTAL: Current: BMD 0.866 g/cm2, Z-score 0.4, T-score -1.1, osteopenia, 1.9% decrease from baseline (<5% change is not significant). Baseline: BMD 0.883 g/cm2. AP SPINE L1-L3 (excluding L4): The data of L1-L4 has been changed to exclude the L4 vertebral body, because degenerative sclerosis at this level may cause overestimation of lumbar spine density. Current: BMD 1.048 g/cm2, Z-score 0.3, T-score -1.0, normal, 7.3% increase from baseline (<5% change is not significant). Baseline: BMD 0.977 g/cm2. IDENTIFIED RISK FACTORS: Early menopause, secondary osteoporosis, hysterectomy, bilateral oophorectomy, osteoporosis. HISTORY OF FRACTURE: Wrist. MEDICATIONS: Calcium supplements or multivitamin, vitamin D. MM/XR DEXA axial skeleton IMPRESSION: 1. DIAGNOSIS: Osteopenia based on the lowest T-score value of -1.8 in the femoral neck applying World Health Organization criteria. 2. 10-YEAR FRACTURE RISK PREDICTION, FRAX: Major osteoporotic fracture (clinical spine, forearm, hip or shoulder) 19.8%. Hip fracture 4.6%. 3. Treatment Recommendations: NOF guidelines recommend consideration for treatment in postmenopausal women and men age 50 and older presenting with the following: -A hip or vertebral (clinical or morphometric) fracture. -T-score less than or equal to -2.5 at the femoral neck or spine after appropriate evaluation to exclude secondary causes. -Low bone mass at the hip or spine and a 10-year fracture probability by FRAX of greater than or equal to 3% for hip fracture or greater than or equal to 20% for major osteoporotic fracture based on the [place] adapted WHO algorithm. 4. Other Recommendations: All treatment decisions require clinical judgment and consideration of individual patient factors, including patient preferences, comorbidities, previous drug use, risk factors not captured in the FRAX model (e.g. frailty, falls, vitamin D deficiency, increased bone turnover, interval significant decline in bone density) and possible under or overestimation of fracture risk by FRAX. Additional medical evaluation for secondary cause of low bone mineral density may be appropriate. FUTURE SCAN RECOMMENDATION: People with diagnosed cases of osteoporosis or at high risk for fracture should have regular bone mineral density tests. For patients eligible for Medicare, routine testing is allowed once every 2 years. The testing frequency can be increased to one year for patients who have rapidly progressing disease, those who are receiving or discontinuing medical therapy to restore bone mass, or have additional risk factors.
== END 2022-11-03 14:48 | disposition home or self-care (01) ==
LOC: HO.MAMMO 14:47
PROVIDERS: PCP Internal Medicine; Visit Provider Obstetrics & Gynecology
DX: Z13.820 Encounter for screening for osteoporosis (principal); Z78.0 Asymptomatic menopausal state
CPT/HCPCS: 77080

== ENCOUNTER → 2022-11-03 15:00 | Outpatient (BNV) | payer MEDICARE, SELFPAY | PROVIDERS: PCP Internal Medicine; Visit Provider Radiology Diagnostic Radiology | DX: M81.0 Age-related osteoporosis without current pathological fracture (principal) | CPT/HCPCS: 77080 ==

== ENCOUNTER 2022-11-06 14:27 | Outpatient (REF) | payer MEDICARE, SELFPAY | END 2022-11-06 14:28 | disposition home or self-care (01) | LOC: HO.LNP 14:27 | PROVIDERS: PCP Internal Medicine; Visit Provider Obstetrics & Gynecology | DX: A63.0 Anogenital (venereal) warts (principal); B97.7 Papillomavirus as the cause of diseases classified elsewhere | CPT/HCPCS: 57454; 88305; 88342; 88360 ==

== ENCOUNTER 2022-11-06 14:27 | Outpatient (AMB) | payer MEDICARE, SELFPAY ==
[2022-11-06 14:34] VITALS: BP 140/72; BMI 31.2
--- NOTE | 2022-11-06 14:34 | A.OFFVIS_ITS ---
Intake Vital Signs 11/06/22 14:34 Height 5 ft 3 in Weight 176 lb BMI 31.2 BP 140/72 H Intake Visit Reasons: Colposcopy/dexa follow up Telemetry Nurse Required: Yes Telemetry Nurse Language: Macedonian Information Interpreted: non-clinical & clinical Credit Relationship Manager: Credit Relationship Manager Present (Elisabet) Allergies hydrochlorothiazide Allergy (Intermediate, Verified 11/06/22 14:38) Nausea triamterene Allergy (Intermediate, Verified 11/06/22 14:38) nausea clarithromycin [From Biaxin] Allergy (Unknown, Verified 11/06/22 14:38) unknown doxycycline Allergy (Unknown, Verified 11/06/22 14:38) unknown alendronate sodium Adverse Reaction (Intermediate, Verified 11/06/22 14:38) Dizziness lisinopril Adverse Reaction (Intermediate, Verified 11/06/22 14:38) cough Is last menstrual period known: No Post menopausal: Yes PFSH Medical History Annual physical exam Carpal tunnel syndrome on both sides Chest pain Colonoscopy refused Dizziness DM type 2 (diabetes mellitus, type 2) HPV (human papilloma virus) infection HSV (herpes simplex virus) infection Hyperglycemia Hyperlipemia Hypertension Menopausal disorder Osteoporosis Pruritus Urinary incontinence Urinary incontinence Surgical History Hx of unilateral oophorectomy Family History Father No problems noted. Mother No problems noted. Social History Housing: House Alcohol intake: never Patient Tobacco Use Status: Never used Tobacco e-Cigarette/Vaping Use: Never Used Second Hand Smoke Exposure: No service: No Current occupational status: employed Current occupational exposures/hazards: No Sexual orientation: Straight/Heterosexual Gender identity: Female Cognitive needs: No Hearing needs: No Vision needs: Yes Female Reproductive History Menstrual Age of Menarche: 14 Physical Exam Vital Signs: Last Vital Signs BP 140/72 H 11/06/22 14:34 BMI result Body Mass Index 31.2 Office Procedures Colposcopy Before the procedure was started discussed with the patient the procedure, alternatives & all the risks associated with the procedure (bleeding, infection, injury to vagina, bladder, vessels, possible need for transfusion with all its risks) then patient signed the consent Pap smear = Pap negative/HPV positive, history of WILBUR 1 in 2021 Speculum inserted, acetic acid used Colposcopy done Transformation zone seen, acetowhite lesions identified at 12+1+6 o?clock, cervical biopsies taken from 12+1+6 o?clock, ECC done afterwards. Vaginoscopy of the upper vagina showed no evidence of any aceto-white lesions Monsel solution used for hemostasis. The patient tolerated well . At the end the patient was instructed to call if temp>100.4, abdominal pain, n/v, bleeding; The patient was given the following instructions: nothing per vagina, no intercourse or bath tub use. All questions answered the patient verbalized understanding. Instructed the patient to make an appointment in 2 weeks for follow-up This note was generated with a voice recognition program. Some errors may have been overlooked during the review of this note. Sometimes these errors may affect the content or meaning of a given sentence. [id number] of cervix including upper vagina with biopsy and ECC Procedure code (CPT) selection complete Assessment & Plan Assessment & Plan Orders: Orders AMB Colposcopy Today B97.7 - Papillomavirus as the cause of diseases classified elsewhere Coding Level of Care Code Procedure Only Diagnoses CPT Codes Colposcopy - CPT: 87015-Uzwxdqwpg of cervix including upper vagina with biopsy and ECC ([id number])
== END 2022-11-06 14:58 | disposition home or self-care (01) ==
LOC: HO.HWS 14:27
PROVIDERS: PCP Internal Medicine; Visit Provider Obstetrics & Gynecology
DX: R87.810 Cervical high risk human papillomavirus (HPV) DNA test positive (principal); Z86.001 Personal history of in-situ neoplasm of cervix uteri
CPT/HCPCS: 57454

== ENCOUNTER 2022-11-10 12:11 | Outpatient (AMB) | payer MEDICARE, SELFPAY ==
--- NOTE | 2022-11-10 13:03 | MHC.PC.OV ---
Vital Signs 11/10/22 13:04 Height 5 ft 3 in Weight 176 lb BMI 31.2 BP 142/66 H Blood Pressure Location Rt brachial Position Sitting Pulse 102 H Pulse Source Pulse Oximeter Pulse Oximetry (%) 97 Oxygen Delivery Method Room Air Intake Visit Reasons: F/u ankle/arm rash Intake Note: Pt is here today for follow up visit on rash on her legs that is spreading to her abdomen arms and back. Pt states that the rash is very itchy. Pt also c/o lower leg swelling and high glucose levels. Allergies hydrochlorothiazide Allergy (Intermediate, Verified 11/10/22 13:08) Nausea triamterene Allergy (Intermediate, Verified 11/10/22 13:08) nausea clarithromycin [From Biaxin] Allergy (Unknown, Verified 11/10/22 13:08) unknown doxycycline Allergy (Unknown, Verified 11/10/22 13:08) unknown alendronate sodium Adverse Reaction (Intermediate, Verified 11/10/22 13:08) Dizziness lisinopril Adverse Reaction (Intermediate, Verified 11/10/22 13:08) cough Medication List - Last Reconciled 11/10/22 by Kimberlyn Noland MD amlodipine 5 mg PO DAILY ascorbic acid (vitamin C) (Vitamin C) 50 mg PO DAILY atorvastatin 40 mg PO DAILY cholecalciferol (vitamin D3) (Vitamin D3) 25 mcg PO DAILY famotidine (Pepcid) 40 mg PO BEDTIME glipizide ER 2.5 mg PO BID hydrocortisone 2.5% 1 appl topical BID-TID PRN loratadine 10 mg PO DAILY metoprolol succinate ER 100 mg PO DAILY omega-3 fatty acids 1 cap PO DAILY omeprazole 20 mg PO DAILY solifenacin 10 mg PO DAILY 90 days triamcinolone acetonide 0.1% 1 appl topical DAILY Tobacco use date assessed: 09/06/22 Dental Screening Dental Screen Date: 11/10/22 Did you have a dental visit in the last 12 months?: Yes Did you have a dental problem in the last 6 months where you did not have access to dental care?: No Was dental information given to patient?: Patient has dentist HPI F/u ankle/arm rash HPI Details Pt c/o itchy rash on legs and arms, getting worse for the last few weeks. Patient has been using [id number] hydrocortisone cream without significant improvement. She denies exposure to new chemicals, body products, on medications. Patient has an appointment in November with financial market dealer. Patient reports high glucose readings over 200s in the morning despite taking 5 mg of glipizide twice a day. [facility] Medical History Annual physical exam Carpal tunnel syndrome on both sides Chest pain Colonoscopy refused Dizziness DM type 2 (diabetes mellitus, type 2) HPV (human papilloma virus) infection HSV (herpes simplex virus) infection Hyperglycemia Hyperlipemia Hypertension Menopausal disorder Osteoporosis Pruritus Urinary incontinence Urinary incontinence Surgical History Hx of unilateral oophorectomy Family History Father No problems noted. Mother No problems noted. Social History Housing: House Alcohol intake: never Patient Tobacco Use Status: Never used Tobacco e-Cigarette/Vaping Use: Never Used Second Hand Smoke Exposure: No service: No Current occupational status: employed Current occupational exposures/hazards: No Sexual orientation: Straight/Heterosexual Gender identity: Female Cognitive needs: No Hearing needs: No Vision needs: Yes Female Reproductive History Menstrual Age of Menarche: 14 Questionnaire Thrive Questionnaire Date Thrive assessed: 09/06/22 SHILPI-7 AMB Questionnaire SHILPI-7 Date SHILPI - 7 assessed: 09/06/22 Source: Developed by Drs. Aniket Palencia, Radha Alston, Homer Palmer and colleagues, with an educational heather from [email or web address]. Review of Systems Const All systems reviewed & are unremarkable except as noted in HPI and below Reports no additional complaints Eyes Reports no additional complaints ENT Reports no additional complaints Card Reports no additional complaints Resp Reports no additional complaints GI Reports no additional complaints Physical exam (Primary Care) Vital Signs: Last Vital Signs Pulse 102 H 11/10/22 13:04 BP 142/66 H 11/10/22 13:04 Pulse Ox 97 11/10/22 13:04 Oxygen Delivery Method Room Air 11/10/22 13:04 BMI result Body Mass Index 31.2 Tobacco/Smoking Status: Tobacco use Status Tobacco use date assessed 09/06/22 11/10/22 13:05 Patient Tobacco Use Status Never used Tobacco 11/10/22 13:05 e-Cigarette/Vaping Use Never Used 11/10/22 13:05 Thrive Assessment: Date of Thrive Assessment Date Thrive assessed 09/06/22 11/10/22 13:05 Const General: no acute distress Neck Neck: Yes supple Resp Auscultation: clear to auscultation bilaterally Cardio Rhythm: regular rhythm Heart sounds: S1 normal heart sound present and S2 normal heart sound present GI Inspection: Yes normal to inspection Palpation (GI): Soft to palpation Percussion: Yes normal to percussion Skin Other: Extensive erythematous rash weeks excoriation [place] on both legs arms abdomen but not back, bilateral lower extremity +2 pitting edema Assessment and Plan Assessment & Plan (1) Rash: Code(s): R21 - Rash and other nonspecific skin eruption Plan: Prednisone taper and betamethasone cream are prescribed and patient will follow-up with financial market dealer. (2) DM type 2 (diabetes mellitus, type 2): Code(s): E11.9 - Type 2 diabetes mellitus without complications Plan: Add Farxiga 5 mg to glipizide and ADA diet discussed with the patient. Medications: New betamethasone dipropionate 0.05% 1 appl topical BID PRN 80 grams 1RF skin irritation prednisone 4 tabl qd x 3 days, 3 tabl qd x 3 days, 2 tabl qd x 3 days then 1 tablx 3 10 mg PO DAILY 30 tabs 0RF dapagliflozin propanediol (Farxiga) 5 mg PO DAILY 90 tabs 0RF Coding Level of Care Code Est Pt Level 3 (13671) Diagnoses Rash R21 DM type 2 (diabetes mellitus, type 2) E11.9
[2022-11-10 13:04] VITALS: BP 142/66; PULSE 102; O2SAT 97; BMI 31.2
== END 2022-11-10 13:46 | disposition home or self-care (01) ==
PROVIDERS: PCP Internal Medicine; Visit Provider Internal Medicine
DX: R21 Rash and other nonspecific skin eruption (principal); E11.9 Type 2 diabetes mellitus without complications
CPT/HCPCS: 99213

== ENCOUNTER 2022-11-15 08:03 | Outpatient (AMB) | payer MEDICARE, SELFPAY ==
--- NOTE | 2022-11-15 08:06 | MHC.OFFWIV ---
Intake Vital Signs 11/15/22 08:07 Height 5 ft 3 in Weight 176 lb BMI 31.2 BP 162/84 H Blood Pressure Location Rt brachial Position Sitting Pulse 75 Pulse Source Pulse Oximeter Temp 97.8 F Temp Source Temporal Artery Scan Pulse Oximetry (%) 98 Intake Visit Reasons: EP ?Bites/Rash [phone] Intake Note: pt is here for bites from bugs, with rash Patient Tobacco Use Status: Never used Tobacco Allergies hydrochlorothiazide Allergy (Intermediate, Verified 11/15/22 08:07) Nausea triamterene Allergy (Intermediate, Verified 11/15/22 08:07) nausea clarithromycin [From Biaxin] Allergy (Unknown, Verified 11/15/22 08:07) unknown doxycycline Allergy (Unknown, Verified 11/15/22 08:07) unknown alendronate sodium Adverse Reaction (Intermediate, Verified 11/15/22 08:07) Dizziness lisinopril Adverse Reaction (Intermediate, Verified 11/15/22 08:07) cough Medication List - Last Reconciled 11/15/22 by Cuong Mcdaniels MD amlodipine 5 mg PO DAILY ascorbic acid (vitamin C) (Vitamin C) 50 mg PO DAILY atorvastatin 40 mg PO DAILY betamethasone dipropionate 0.05% 1 appl topical BID PRN cholecalciferol (vitamin D3) (Vitamin D3) 25 mcg PO DAILY dapagliflozin propanediol (Farxiga) 5 mg PO DAILY famotidine (Pepcid) 40 mg PO BEDTIME glipizide ER 2.5 mg PO BID hydrocortisone 2.5% 1 appl topical BID-TID PRN loratadine 10 mg PO DAILY metoprolol succinate ER 100 mg PO DAILY omega-3 fatty acids 1 cap PO DAILY omeprazole 20 mg PO DAILY solifenacin 10 mg PO DAILY 90 days triamcinolone acetonide 0.1% 1 appl topical DAILY Do you need a note to return to daycare/school/sports/work: No HPI EP ?Bites/Rash [phone] HPI Details 27-year-old female presents to the office for a sick visit. Patient speaks Bel[place]ian only and a medical staffing coordinator was used to translate. She is being treated for a rash with prednisone and steroid cream. She was seen last week by her primary care provider. Patient is continuing to have intense itching. [facility] Medical History Annual physical exam Carpal tunnel syndrome on both sides Chest pain Colonoscopy refused Dizziness DM type 2 (diabetes mellitus, type 2) HPV (human papilloma virus) infection HSV (herpes simplex virus) infection Hyperglycemia Hyperlipemia Hypertension Menopausal disorder Osteoporosis Pruritus Urinary incontinence Urinary incontinence Surgical History Hx of unilateral oophorectomy Family History Father No problems noted. Mother No problems noted. Social History Housing: House Alcohol intake: never Patient Tobacco Use Status: Never used Tobacco e-Cigarette/Vaping Use: Never Used Second Hand Smoke Exposure: No service: No Current occupational status: employed Current occupational exposures/hazards: No Sexual orientation: Straight/Heterosexual Gender identity: Female Cognitive needs: No Hearing needs: No Vision needs: Yes Female Reproductive History Menstrual Age of Menarche: 14 Physical Exam Vital Signs: Last Vital Signs Temp 97.8 F 11/15/22 08:07 Pulse 75 11/15/22 08:07 BP 162/84 H 11/15/22 08:07 Pulse Ox 98 11/15/22 08:07 BMI result Body Mass Index 31.2 Skin Other: Maculopapular rash over the lower extremity with skin excoriations. A few lesions on her forearm and abdomen. According to the medical staffing coordinator who saw the patient last week, the rash is fading but continues to itch. Assessment & Plan Assessment & Plan (1) Rash: Code(s): R21 - Rash and other nonspecific skin eruption Plan: Prednisone 60 mg for 3 days and hydroxyzine. She was encouraged to return to the walk-in on Sunday for a re-evaluation. Coding Level of Care Code Est Pt Level 3 (72855) Diagnoses Rash R21
[2022-11-15 08:07] VITALS: BP 162/84; PULSE 75; TEMP 36.6; O2SAT 98; BMI 31.2
== END 2022-11-15 08:24 | disposition home or self-care (01) ==
PROVIDERS: PCP Internal Medicine; Visit Provider Internal Medicine
DX: R21 Rash and other nonspecific skin eruption (principal)
CPT/HCPCS: 99213

== ENCOUNTER 2022-11-17 08:52 | Outpatient (AMB) | payer MEDICARE, SELFPAY ==
--- NOTE | 2022-11-17 09:51 | AM.OFFWIN_ITS ---
Intake Vital Signs 11/17/22 09:53 Height 5 ft 3 in Weight 171 lb BMI 30.3 BP 130/72 Blood Pressure Location Rt brachial Position Sitting Pulse 87 Pulse Source Pulse Oximeter Temp 97.6 F Temp Source Temporal Artery Scan Pulse Oximetry (%) 97 Oxygen Delivery Method Room Air Intake Visit Reasons: EP Rash Intake Note: Pt is here c/o rash all over her body. Patient Tobacco Use Status: Never used Tobacco Allergies hydrochlorothiazide Allergy (Intermediate, Verified 11/17/22 10:59) Nausea triamterene Allergy (Intermediate, Verified 11/17/22 10:59) nausea clarithromycin [From Biaxin] Allergy (Unknown, Verified 11/17/22 10:59) unknown doxycycline Allergy (Unknown, Verified 11/17/22 10:59) unknown alendronate sodium Adverse Reaction (Intermediate, Verified 11/17/22 10:59) Dizziness lisinopril Adverse Reaction (Intermediate, Verified 11/17/22 10:59) cough Medication List - Last Reconciled 11/17/22 by Cuong Mcdaniels MD amlodipine 5 mg PO DAILY ascorbic acid (vitamin C) (Vitamin C) 50 mg PO DAILY atorvastatin 40 mg PO DAILY betamethasone dipropionate 0.05% 1 appl topical BID PRN cholecalciferol (vitamin D3) (Vitamin D3) 25 mcg PO DAILY dapagliflozin propanediol (Farxiga) 5 mg PO DAILY famotidine (Pepcid) 40 mg PO BEDTIME glipizide ER 2.5 mg PO BID hydrocortisone 2.5% 1 appl topical BID-TID PRN hydroxyzine HCl 25 mg PO BID PRN loratadine 10 mg PO DAILY metoprolol succinate ER 100 mg PO DAILY omega-3 fatty acids 1 cap PO DAILY omeprazole 20 mg PO DAILY prednisone Three tablets p.o. q.d. for 4 days then 2 tablets p.o. q.d. for 4 days then 1 tablet p.o. q.d. for 4 days solifenacin 10 mg PO DAILY 90 days triamcinolone acetonide 0.1% 1 appl topical DAILY Do you need a note to return to daycare/school/sports/work: Yes HPI EP Rash HPI Details 77-year-old female presents for a follow-up visit. Prednisone at 60 mg reduced the rash and itching symptoms have reduced. Continues to have itching at night. [facility] Medical History Annual physical exam Carpal tunnel syndrome on both sides Chest pain Colonoscopy refused Dizziness DM type 2 (diabetes mellitus, type 2) HPV (human papilloma virus) infection HSV (herpes simplex virus) infection Hyperglycemia Hyperlipemia Hypertension Menopausal disorder Osteoporosis Pruritus Urinary incontinence Urinary incontinence Surgical History Hx of unilateral oophorectomy Family History Father No problems noted. Mother No problems noted. Social History Housing: House Alcohol intake: never Patient Tobacco Use Status: Never used Tobacco e-Cigarette/Vaping Use: Never Used Second Hand Smoke Exposure: No service: No Current occupational status: employed Current occupational exposures/hazards: No Sexual orientation: Straight/Heterosexual Gender identity: Female Cognitive needs: No Hearing needs: No Vision needs: Yes Female Reproductive History Menstrual Age of Menarche: 14 Physical Exam Vital Signs: Last Vital Signs Temp 97.6 F 11/17/22 09:53 Pulse 87 11/17/22 09:53 BP 130/72 11/17/22 09:53 Pulse Ox 97 11/17/22 09:53 Oxygen Delivery Method Room Air 11/17/22 09:53 BMI result Body Mass Index 30.3 Skin Other: Right and lower left legs: Fading erythematous rash. No new lesions. Assessment & Plan Assessment & Plan (1) Rash: Code(s): R21 - Rash and other nonspecific skin eruption Plan: Prednisone 20 mg twice a day for 2 days. Continue hydroxyzine. Coding Level of Care Code Est Pt Level 3 (76687) Diagnoses Rash R21
[2022-11-17 09:53] VITALS: BP 130/72; PULSE 87; TEMP 36.4; O2SAT 97; BMI 30.3
== END 2022-11-17 10:58 | disposition home or self-care (01) ==
PROVIDERS: PCP Internal Medicine; Visit Provider Internal Medicine
DX: R21 Rash and other nonspecific skin eruption (principal)
CPT/HCPCS: 99213

== ENCOUNTER 2022-12-02 09:07 | Outpatient (REF) | payer MEDICARE, SELFPAY ==
[2022-12-02 11:53] LABS: Alanine Aminotransferase 25 U/L (0-31); Albumin Level 3.7 g/dL (3.5-5.0); Alkaline Phosphatase 61 U/L (39-117); Anion Gap 10 (12-20); Aspartate Amino Transferase 18 U/L (5-31); Bilirubin Total 0.6 mg/dL (0.0-1.0); Blood Urea Nitrogen 16 mg/dL (9-16); Calcium 9.1 mg/dL (8.4-10.2); Carbon Dioxide 28 mmol/L (22-29); Chloride 107 mmol/L (96-108); Cholesterol 221 mg/dL (<200); Estimated Glomerular Filt Rate 56; Glucose Fasting 137 mg/dL (60-99); HDL Cholesterol 53 mg/dL (>40); LDL Cholesterol Calculated 124 mg/dL (<100); Potassium 4.3 mmol/L (3.3-5.1); Sodium 141 mmol/L (135-145); Total Protein 6.7 g/dL (6.5-8.0); Triglycerides 220 mg/dL (<150)
[2022-12-02 12:06] LABS: Estimated Average Glucose 169 mg/dL; Hemoglobin A1c % 7.5 % (<6.0)
[2022-12-02 12:16] LABS: Creatinine Urine 32.63 mg/dL; Microalbum/Creatinine Ratio Ur 21.4 ug/mg cr (<30)
== END 2022-12-02 09:08 | disposition home or self-care (01) ==
LOC: HO.HMGCLDS 09:07
PROVIDERS: PCP Internal Medicine; Visit Provider Internal Medicine
DX: M81.0 Age-related osteoporosis without current pathological fracture (principal); I10 Essential (primary) hypertension; E11.9 Type 2 diabetes mellitus without complications; E78.5 Hyperlipidemia, unspecified
CPT/HCPCS: 36415; 80053; 80061; 82043; 82570; 83036

== ENCOUNTER 2022-12-04 13:29 | Outpatient (AMB) | payer MEDICARE, SELFPAY ==
[2022-12-04 13:40] VITALS: BP 126/78; PULSE 96; O2SAT 97; BMI 31.0
--- NOTE | 2022-12-04 13:40 | A.OFFPC_ITS ---
Vital Signs 12/04/22 13:40 Height 5 ft 3 in Weight 175 lb BMI 31.0 BP 126/78 Blood Pressure Location Lt brachial Position Sitting Pulse 96 Pulse Source Pulse Oximeter Pulse Oximetry (%) 97 Oxygen Delivery Method Room Air Intake Visit Reasons: 3 month follow up Intake Note: Pt is here today for 3 months follow up visit on DM. Allergies hydrochlorothiazide Allergy (Intermediate, Verified 12/04/22 13:43) Nausea triamterene Allergy (Intermediate, Verified 12/04/22 13:43) nausea clarithromycin [From Biaxin] Allergy (Unknown, Verified 12/04/22 13:43) unknown doxycycline Allergy (Unknown, Verified 12/04/22 13:43) unknown alendronate sodium Adverse Reaction (Intermediate, Verified 12/04/22 13:43) Dizziness lisinopril Adverse Reaction (Intermediate, Verified 12/04/22 13:43) cough dapagliflozin [From Farxiga] Adverse Reaction (Verified 12/04/22 13:43) severe Chest Pain Medication List - Last Reconciled 12/04/22 by Kimberlyn Noland MD amlodipine 5 mg PO DAILY ascorbic acid (vitamin C) (Vitamin C) 50 mg PO DAILY atorvastatin 40 mg PO DAILY betamethasone dipropionate 0.05% 1 appl topical BID PRN blood sugar diagnostic (Freestyle [employer] strips) 1 qd cholecalciferol (vitamin D3) (Vitamin D3) 25 mcg PO DAILY famotidine (Pepcid) 40 mg PO BEDTIME glipizide ER 2.5 mg PO BID hydrocortisone 2.5% 1 appl topical BID-TID PRN hydroxyzine HCl 25 mg PO QID loratadine 10 mg PO DAILY metoprolol succinate ER 100 mg PO DAILY omega-3 fatty acids 1 cap PO DAILY omeprazole 20 mg PO DAILY solifenacin 10 mg PO DAILY 90 days triamcinolone acetonide 0.1% 1 appl topical DAILY Tobacco use date assessed: 09/06/22 HPI 3 month follow up HPI Details Pt presents for f/u DM2 , hyperlipid, hypertension. Patient was evaluated by aerospace products sales engineer and started taking 25 mg of hydrocortisone and the rash improved. She is awaiting skin biopsy results. [facility] Medical History Annual physical exam Carpal tunnel syndrome on both sides Chest pain Colonoscopy refused Dizziness DM type 2 (diabetes mellitus, type 2) HPV (human papilloma virus) infection HSV (herpes simplex virus) infection Hyperglycemia Hyperlipemia Hypertension Menopausal disorder Osteoporosis Pruritus Urinary incontinence Urinary incontinence Surgical History Hx of unilateral oophorectomy Family History Father No problems noted. Mother No problems noted. Social History Housing: House Alcohol intake: never Patient Tobacco Use Status: Never used Tobacco e-Cigarette/Vaping Use: Never Used Second Hand Smoke Exposure: No service: No Current occupational status: employed Current occupational exposures/hazards: No Sexual orientation: Straight/Heterosexual Gender identity: Female Cognitive needs: No Hearing needs: No Vision needs: Yes Female Reproductive History Menstrual Age of Menarche: 14 Questionnaire Thrive Questionnaire Date Thrive assessed: 09/06/22 SHILPI-7 AMB Questionnaire SHILPI-7 Date SHILPI - 7 assessed: 09/06/22 Source: Developed by Drs. Aniket Palencia, Radha Alston, Homer Palmer and colleagues, with an educational heather from [employer]. Review of Systems Const All systems reviewed & are unremarkable except as noted in HPI and below Reports no additional complaints Eyes Reports no additional complaints ENT Reports no additional complaints Card Reports no additional complaints Resp Reports no additional complaints GI Reports no additional complaints Reports no additional complaints Physical exam (Primary Care) Vital Signs: Last Vital Signs Pulse 96 12/04/22 13:40 BP 160/84 H 12/04/22 13:40 Pulse Ox 97 12/04/22 13:40 Oxygen Delivery Method Room Air 12/04/22 13:40 BMI result Body Mass Index 31.0 Tobacco/Smoking Status: Tobacco use Status Tobacco use date assessed 09/06/22 12/04/22 13:44 Patient Tobacco Use Status Never used Tobacco 12/04/22 13:44 e-Cigarette/Vaping Use Never Used 12/04/22 13:44 Thrive Assessment: Date of Thrive Assessment Date Thrive assessed 09/06/22 12/04/22 13:44 Const General: no acute distress HENMT Head: Yes normal to inspection Throat: Yes posterior oropharynx normal Neck Neck: Yes supple Resp Effort & Inspection: normal respiratory effort Auscultation: clear to auscultation bilaterally Cardio Rhythm: regular rhythm Heart sounds: S1 normal heart sound present and S2 normal heart sound present GI Inspection: Yes normal to inspection Palpation (GI): Soft to palpation Percussion: Yes normal to percussion Auscultation: normal bowel sounds Assessment and Plan Assessment & Plan (1) Rash: Comment: f/u with dermatology Code(s): R21 - Rash and other nonspecific skin eruption (2) DM type 2 (diabetes mellitus, type 2): Comment: intolerant to Farxiga , chest pain Code(s): E11.9 - Type 2 diabetes mellitus without complications Plan: A1C IS 7.8, ADA diet, exercise, weigth loss discussed, cont gLIPIZIDE, F/U 3 months (3) Hypertension: Code(s): I10 - Essential (primary) hypertension Plan: cont meds (4) Hyperlipemia: Code(s): E78.5 - Hyperlipidemia, unspecified Plan: cont Lipitor Orders: Orders Lipid Panel 3 Months E11.9 - Type 2 diabetes mellitus without complications, E78.5 - Hyperlipidemia, unspecified, I10 - Essential (primary) hypertension Complete Blood Count Auto Diff 3 Months E11.9 - Type 2 diabetes mellitus without complications, E78.5 - Hyperlipidemia, unspecified, I10 - Essential (primary) hypertension Microalbumin, Random (w Creat) 3 Months E11.9 - Type 2 diabetes mellitus without complications, E78.5 - Hyperlipidemia, unspecified, I10 - Essential (primary) hypertension TSH reflex Free T4 3 Months E11.9 - Type 2 diabetes mellitus without complications, E78.5 - Hyperlipidemia, unspecified, I10 - Essential (primary) hypertension Hemoglobin A1c 3 Months E11.9 - Type 2 diabetes mellitus without complications, E78.5 - Hyperlipidemia, unspecified, I10 - Essential (primary) hypertension Comprehensive [place]. Panel Fast 3 Months E11.9 - Type 2 diabetes mellitus without complications, E78.5 - Hyperlipidemia, unspecified, I10 - Essential (primary) hypertension Medications: New blood sugar diagnostic (Freestyle [employer] strips) 1 qd 100 ea 1RF Refilled glipizide ER 2.5 mg PO BID 160 tabs 3RF Coding Level of Care Code Est Pt Level 4 (55311) Diagnoses Rash R21 DM type 2 (diabetes mellitus, type 2) E11.9 Hypertension I10 Hyperlipemia E78.5
== END 2022-12-04 14:34 | disposition home or self-care (01) ==
PROVIDERS: PCP Internal Medicine; Visit Provider Internal Medicine
DX: R21 Rash and other nonspecific skin eruption (principal); E11.9 Type 2 diabetes mellitus without complications; I10 Essential (primary) hypertension; E78.5 Hyperlipidemia, unspecified; Z13.9 Encounter for screening, unspecified
CPT/HCPCS: 82948; 99214

== ENCOUNTER 2023-01-11 09:22 | Outpatient (AMB) | payer MEDICARE, SELFPAY ==
[2023-01-11 09:25] VITALS: BP 120/68; PULSE 70; O2SAT 98; BMI 30.5
--- NOTE | 2023-01-11 09:25 | MHC.PC.OV ---
Vital Signs 01/11/23 09:25 Height 5 ft 3 in Weight 172 lb BMI 30.5 BP 120/68 Blood Pressure Location Lt brachial Position Sitting Pulse 70 Pulse Source Pulse Oximeter Pulse Oximetry (%) 98 Intake Visit Reasons: recurrent rash on right leg Intake Note: Pt is here today for a follow up visit on recurrent rash on R leg. Allergies hydrochlorothiazide Allergy (Intermediate, Verified 01/11/23 09:27) Nausea triamterene Allergy (Intermediate, Verified 01/11/23 09:27) nausea clarithromycin [From Biaxin] Allergy (Unknown, Verified 01/11/23 09:27) unknown doxycycline Allergy (Unknown, Verified 01/11/23 09:27) unknown alendronate sodium Adverse Reaction (Intermediate, Verified 01/11/23 09:27) Dizziness lisinopril Adverse Reaction (Intermediate, Verified 01/11/23 09:27) cough dapagliflozin [From Farxiga] Adverse Reaction (Verified 01/11/23 09:27) severe Chest Pain Medication List - Last Reconciled 01/11/23 by Kimberlyn Noland MD amlodipine 5 mg PO DAILY ascorbic acid (vitamin C) (Vitamin C) 50 mg PO DAILY atorvastatin 40 mg PO DAILY betamethasone dipropionate 0.05% 1 appl topical BID PRN blood sugar diagnostic ([employer] Ver[employer] test strips) Test once per day blood-glucose meter ([employer] Verio Flex Meter) Use daily as directed cholecalciferol (vitamin D3) (Vitamin D3) 25 mcg PO DAILY dapagliflozin propanediol (Farxiga) 5 mg PO DAILY famotidine (Pepcid) 40 mg PO BEDTIME glipizide ER 2.5 mg PO BID hydrocortisone 2.5% 1 appl topical BID-TID PRN hydroxyzine HCl 25 mg PO QID lancets ([employer] Delica Plus Lancet) Test blood sugar once a day loratadine 10 mg PO DAILY metoprolol succinate ER 100 mg PO DAILY omega-3 fatty acids 1 cap PO DAILY omeprazole 20 mg PO DAILY pimecrolimus 1% 1 appl topical BID solifenacin 10 mg PO DAILY 90 days triamcinolone acetonide 0.1% 1 appl topical DAILY Tobacco use date assessed: 01/11/23 Dental Screening Dental Screen Date: 01/11/23 Did you have a dental visit in the last 12 months?: Yes Did you have a dental problem in the last 6 months where you did not have access to dental care?: No Was dental information given to patient?: Patient has dentist HPI recurrent rash on right leg HPI Details PATIENT PRESENTS COMPLAINING OF PERSISTENT PRURITIC RASH ON THE LOWER EXTREMITIES RIGHT MORE THAN LEFT. She was evaluated by insurance underwriter sales was prescribed hydroxyzine and Elidel cream without improvement. Patient has been wearing compression stockings only once a week. She spends most of her days sitting with her legs down. Patient also reports high fasting blood glucose readings over 200s but denies polyuria polydipsia [facility] Medical History Annual physical exam Carpal tunnel syndrome on both sides Chest pain Colonoscopy refused Dizziness DM type 2 (diabetes mellitus, type 2) HPV (human papilloma virus) infection HSV (herpes simplex virus) infection Hyperglycemia Hyperlipemia Hypertension Menopausal disorder Osteoporosis Pruritus Urinary incontinence Urinary incontinence Surgical History Hx of unilateral oophorectomy Family History Father No problems noted. Mother No problems noted. Social History Housing: House Alcohol intake: never Patient Tobacco Use Status: Never used Tobacco e-Cigarette/Vaping Use: Never Used Second Hand Smoke Exposure: No service: No Current occupational status: employed Current occupational exposures/hazards: No Sexual orientation: Straight/Heterosexual Gender identity: Female Cognitive needs: No Hearing needs: No Vision needs: Yes Female Reproductive History Menstrual Age of Menarche: 14 Questionnaire Thrive Questionnaire Date Thrive assessed: 09/06/22 AUDIT C Alcohol Use Questionnaire (AUDIT-C) 1. How often do you have a drink containing alcohol?: Never 3. How often do you have six or more drinks on one occasion?: Never Total Score: 0 SHILPI-7 AMB Questionnaire SHILPI-7 Date SHILPI - 7 assessed: 09/06/22 Source: Developed by Drs. Aniket Palencia, Radha Alston, Homer Palmer and colleagues, with an educational heather from [employer]. Review of Systems Const All systems reviewed & are unremarkable except as noted in HPI and below Reports no additional complaints Eyes Reports no additional complaints ENT Reports no additional complaints Card Reports no additional complaints Resp Reports no additional complaints GI Reports no additional complaints Reports no additional complaints Physical exam (Primary Care) Vital Signs: Last Vital Signs Pulse 70 01/11/23 09:25 BP 120/68 01/11/23 09:25 Pulse Ox 98 01/11/23 09:25 BMI result Body Mass Index 30.5 Tobacco/Smoking Status: Tobacco use Status Tobacco use date assessed 01/11/23 01/11/23 09:32 Patient Tobacco Use Status Never used Tobacco 01/11/23 09:32 e-Cigarette/Vaping Use Never Used 01/11/23 09:32 Thrive Assessment: Date of Thrive Assessment Date Thrive assessed 09/06/22 01/11/23 09:32 Const General: no acute distress HENMT Face and sinus: Yes normal facial exam Resp Effort & Inspection: normal respiratory effort Auscultation: clear to auscultation bilaterally Cardio Rhythm: regular rhythm Heart sounds: S1 normal heart sound present and S2 normal heart sound present Extrem Other: Extensive lower extremity varicosities arthropathic skin changes with erythema spider veins right more than left, no warmth or tenderness Assessment and Plan Assessment & Plan (1) Venous insufficiency: Code(s): I87.2 - Venous insufficiency (chronic) (peripheral) Plan: Patient was advised to wear compression leg wear, elevate lower extremities increase physical activity. She requested referral to vascular surgeon. for dystrophic skin changes patient was advised to use skin moisturizer and betamethasone sparingly as needed (2) DM type 2 (diabetes mellitus, type 2): Code(s): E11.9 - Type 2 diabetes mellitus without complications Plan: Patient was advised to increase Farxiga to 10 mg a day and glipizide to 5 mg twice a day. ADA diet increase physical activity discussed with the patient. She will follow-up next month with fasting labs including A1c (3) Hypertension: Code(s): I10 - Essential (primary) hypertension Orders: Referrals Vascular Surgery Referral I87.2 - Venous insufficiency (chronic) (peripheral) Medications: New glipizide 5 mg PO BID 180 tabs 0RF Discontinued glipizide ER Discontinued Reason: Doctor's Order 2.5 mg PO BID 160 tabs 3RF Coding Level of Care Code Est Pt Level 4 (59720) Diagnoses Venous insufficiency I87.2 DM type 2 (diabetes mellitus, type 2) E11.9 Hypertension I10
== END 2023-01-11 10:21 | disposition home or self-care (01) ==
PROVIDERS: PCP Internal Medicine; Visit Provider Internal Medicine
DX: I87.2 Venous insufficiency (chronic) (peripheral) (principal); E11.9 Type 2 diabetes mellitus without complications; I10 Essential (primary) hypertension
CPT/HCPCS: 99214

== ENCOUNTER 2023-01-30 14:29 | Outpatient (AMB) | payer MEDICARE, SELFPAY ==
--- NOTE | 2023-01-30 14:57 | MHC.OFFVIS ---
Intake Vital Signs 01/30/23 14:58 Height 5 ft 3 in Weight 171 lb 15.369 oz BMI 30.5 BP 132/80 Intake Visit Reasons: Colpo Results/DEXA Results/DO NOT RS Taper Printed Circuit Layout Required: Yes Taper Printed Circuit Layout Language: Romanian Taper Printed Circuit Layout Name: ЮЛИЯ Information Interpreted: non-clinical & clinical Accompanied by: Daughter Allergies hydrochlorothiazide Allergy (Intermediate, Verified 01/30/23 14:58) Nausea triamterene Allergy (Intermediate, Verified 01/30/23 14:58) nausea clarithromycin [From Biaxin] Allergy (Unknown, Verified 01/30/23 14:58) unknown doxycycline Allergy (Unknown, Verified 01/30/23 14:58) unknown alendronate sodium Adverse Reaction (Intermediate, Verified 01/30/23 14:58) Dizziness lisinopril Adverse Reaction (Intermediate, Verified 01/30/23 14:58) cough dapagliflozin [From Farxiga] Adverse Reaction (Verified 01/30/23 14:58) severe Chest Pain Post menopausal: Yes HPI HPI Comments History of Present Illness Details Presenting post colpo for follow-up. The patient is doing well with no complaints. The pathology showed the following: A. Endocervix, curettage: Squamous mucosa with reactive changes; negative for dysplasia; no endocervical glandular component present. B. Cervix, 1:00, biopsy: Squamous mucosa with reactive changes; negative for dysplasia; no endocervical glandular component present. C. Cervix, 6:00, biopsy: Squamous mucosa with reactive changes; negative for dysplasia; no endocervical glandular component present. D. Cervix, 12:00, biopsy: Squamous mucosa with reactive changes; negative for dysplasia; no endocervical glandular component present The patient is presenting for follow up regarding DEXA scan results. T score @ spine and femoral Neck respectively were=-not calculated because of degenerative changes /-1.8 and 10 year FRAX risk = 19.8/4.6% for severe osteoporosis and fracture. COUNT INCLUDES THE [facility] Medical History Colonoscopy refused Osteoporosis Chest pain Urinary incontinence Dizziness Annual physical exam Menopausal disorder Urinary incontinence DM type 2 (diabetes mellitus, type 2) Pruritus Carpal tunnel syndrome on both sides Hyperglycemia Hyperlipemia Hypertension HSV (herpes simplex virus) infection HPV (human papilloma virus) infection Surgical History Hx of unilateral oophorectomy Family History Father No problems noted. Mother No problems noted. Social History Housing: House Alcohol intake: never Patient Tobacco Use Status: Never used Tobacco e-Cigarette/Vaping Use: Never Used Second Hand Smoke Exposure: No service: No Current occupational status: employed Current occupational exposures/hazards: No Sexual orientation: Straight/Heterosexual Gender identity: Female Cognitive needs: No Hearing needs: No Vision needs: Yes Female Reproductive History Menstrual Age of Menarche: 14 Review of Systems Const All systems reviewed & are unremarkable except as noted in HPI and below Reports as per HPI and Reports no additional complaints GI Reports no additional complaints Reports no additional complaints Physical Exam Vital Signs: Last Vital Signs BP 132/80 01/30/23 14:58 BMI result Body Mass Index 30.5 Assessment & Plan Assessment & Plan (1) HPV in female: Comment: Negative Pap Code(s): B97.7 - Papillomavirus as the cause of diseases classified elsewhere Plan: Discussed with the patient the pathology results of the colposcopy biopsies & endocervical curettage ( negative). Discussed with the patient the sensitivity specificity, positive and negative predictive value in detecting cervical cancer in addition discussed the regression, persistence and progression rates. Recommended co-testing in 12 months, if cytology and or HPV are abnormal will proceed was colposcopy biopsy and endocervical curettage. Instructions given to the patient to schedule a co test appointment in 1 year. All questions answered the patient verbalized understanding. (2) High risk for fracture due to osteoporosis by DEXA scan: Code(s): M81.0 - Age-related osteoporosis without current pathological fracture Plan: Discussed with the patient the DEXA results and FRAX risk. Will refer to Rheumatology for further management Orders: Referrals Rheumatology Referral M81.0 - Age-related osteoporosis without current pathological fracture Coding Level of Care Code Est Pt Level 3 (94049) Diagnoses HPV in female B97.7 High risk for fracture due to osteoporosis by DEXA scan M81.0
[2023-01-30 14:58] VITALS: BP 132/80; BMI 30.5
== END 2023-01-30 16:05 | disposition home or self-care (01) ==
LOC: HO.HWS 14:29
PROVIDERS: PCP Internal Medicine; Visit Provider Obstetrics & Gynecology
DX: R87.810 Cervical high risk human papillomavirus (HPV) DNA test positive (principal); M81.0 Age-related osteoporosis without current pathological fracture
CPT/HCPCS: 99213

== ENCOUNTER → 2023-01-30 14:29 | Outpatient (BNVA) | payer MEDICARE, SELFPAY | PROVIDERS: PCP Internal Medicine; Visit Provider Obstetrics & Gynecology | DX: M81.0 Age-related osteoporosis without current pathological fracture (principal); B97.7 Papillomavirus as the cause of diseases classified elsewhere | CPT/HCPCS: 99212 ==

== ENCOUNTER 2023-02-08 15:14 | Outpatient (REF) | payer MEDICARE, SELFPAY ==
[2023-02-08 16:13] LABS: MANUAL DIFF FLAG NO
[2023-02-08 16:35] LABS: Basophils Absolute Auto 0.1 X10*3/uL (0.0-0.2); Basophils Percent Auto 0.7 % (0-2); Eosinophils Absolute Auto 0.5 X10*3/uL (0.0-0.4); Eosinophils Percent Auto 6.9 % (0-4); Hematocrit 45.6 % (37.0-47.0); Hemoglobin 14.8 g/dl (12.0-16.0); Imm Gran Abs Auto 0.01 X10*3/uL (0.00-0.03); Imm Gran Pct Auto 0.1 % (0.0-0.4); Lymphocytes Absolute Auto 2.2 X10*3/uL (1.2-4.9); Lymphocytes Percent Auto 29.6 % (20-40); Mean Corpuscular HGB Conc 32.5 g/dl (31.0-35.0); Mean Corpuscular Hemoglobin 30.1 pg (27.0-33.0); Mean Corpuscular Volume 92.7 fL (80.0-98.0); Mean Platelet Volume 11.6 fL (9.4-12.3); Monocytes Absolute Auto 0.5 X10*3/uL (0.1-1.2); Neutrophils Absolute Auto 4.2 x10*3/uL (2.0-8.3); Neutrophils Percent Auto 55.7 % (45-73); Platelet Count 200 X10*3/uL (160-400); Red Blood Count 4.92 X10*6/uL (4.20-5.50); Red Cell Distribution Width 12.8 % (11.0-16.0); White Blood Count 7.6 X10*3/uL (4.8-10.8)
[2023-02-08 17:10] LABS: Erythrocyte Sedimentation Rate 3 MM/HR (0-20)
[2023-02-08 17:26] LABS: Alanine Aminotransferase 15 U/L (0-31); Albumin Level 4.2 g/dL (3.5-5.0); Alkaline Phosphatase 66 U/L (39-117); Anion Gap 11 (12-20); Aspartate Amino Transferase 15 U/L (5-31); Bilirubin Total 0.4 mg/dL (0.0-1.0); Blood Urea Nitrogen 22 mg/dL (9-16); Calcium 9.2 mg/dL (8.4-10.2); Carbon Dioxide 26 mmol/L (22-29); Chloride 110 mmol/L (96-108); Estimated Glomerular Filt Rate > 60; Glucose Random 121 mg/dL (60-115); Potassium 3.8 mmol/L (3.3-5.1); Sodium 143 mmol/L (135-145); Total Protein 7.2 g/dL (6.5-8.0)
[2023-02-08 17:41] LABS: TSH reflex Free T4 1.74 uIU/mL (0.32-4.0)
[2023-02-12 12:57] LABS: Anti Nuclear Antibody Screen NEGATIVE (NEGATIVE)
== END 2023-02-08 15:15 | disposition home or self-care (01) ==
LOC: HO.HMGCLDS 15:14
PROVIDERS: PCP Internal Medicine; Visit Provider Physician Assistant
DX: L30.9 Dermatitis, unspecified (principal); I87.2 Venous insufficiency (chronic) (peripheral)
CPT/HCPCS: 36415; 80053; 84443; 85025; 85652; 86038

== ENCOUNTER 2023-02-28 13:15 | Outpatient (REF) | payer MEDICARE, SELFPAY ==
[2023-02-28 15:27] LABS: C Reactive Protein 1.36 mg/dL (< or = 0.50); Phosphorus 3.9 mg/dL (2.7-4.5)
[2023-03-05 19:58] LABS: Myeloperoxidase Antibody <1.0 AI; Proteinase 3 PR3 Antibodies <1.0 AI
[2023-03-07 16:39] LABS: VITAMIN D (1,25 OH) D3 61 pg/mL; Vit D (1,25-Dihydroxy) Total 61 pg/mL (18-72); Vitamin D (1,25 OH) D2 <8 pg/mL
[2023-03-10 14:24] LABS: Collagen Type I C-Telopeptide 413 pg/mL (see note)
== END 2023-02-28 13:16 | disposition home or self-care (01) ==
LOC: HO.LAB 13:15
PROVIDERS: PCP Internal Medicine; Visit Provider Nurse Practitioner Family
DX: M81.0 Age-related osteoporosis without current pathological fracture (principal); L98.9 Disorder of the skin and subcutaneous tissue, unspecified; E11.9 Type 2 diabetes mellitus without complications; E78.00 Pure hypercholesterolemia, unspecified; E55.9 Vitamin D deficiency, unspecified
CPT/HCPCS: 36415; 82523; 82652; 84100; 86021; 86140; 99202

== ENCOUNTER 2023-02-28 13:15 | Outpatient (AMB) | payer MEDICARE, SELFPAY ==
[2023-02-28 13:17] VITALS: BP 126/78; PULSE 81; TEMP 36.1; O2SAT 97; BMI 29.5
--- NOTE | 2023-02-28 13:17 | MHC.OFFVIS ---
Intake Vital Signs 02/28/23 13:17 Height 5 ft 3 in Weight 166 lb 10.711 oz BMI 29.5 BP 126/78 Blood Pressure Location Rt brachial Position Sitting Pulse 81 Pulse Source Pulse Oximeter Temp 97 F Temp Source Skin Pulse Oximetry (%) 97 Oxygen Delivery Method Room Air Intake Visit Reasons: Osteoporosis Intake Note: New patient internally referred to us for osteoporosis. Technical Clerk Required: Yes Technical Clerk Name: Daughter Accompanied by: Daughter Allergies hydrochlorothiazide Allergy (Intermediate, Verified 02/28/23 13:17) Nausea triamterene Allergy (Intermediate, Verified 02/28/23 13:17) nausea clarithromycin [From Biaxin] Allergy (Unknown, Verified 02/28/23 13:17) unknown doxycycline Allergy (Unknown, Verified 02/28/23 13:17) unknown alendronate sodium Adverse Reaction (Intermediate, Verified 02/28/23 13:17) Dizziness lisinopril Adverse Reaction (Intermediate, Verified 02/28/23 13:17) cough dapagliflozin [From Farxiga] Adverse Reaction (Verified 02/28/23 13:17) severe Chest Pain HPI HPI Comments History of Present Illness Details Miss Magallanes is a pleasant 77 year old tamazight speaking patient treatment of osteoporosis secondary to high-risk FRAX score on DEXA scan. Patient had started treatment with Alendronate but stopped due to persistent dizziness. She has a past medical history of carpal tunnel, type 2 diabetes, HPV, herpes simplex virus, hyperlipidemia, hypertension, osteoporosis, and urinary incontinence. Patient also has complained of puritic rash to bilateral upper and lower extremities and back. She has had this rash since July 2022 and cannot relate any associated events. She is currently being followed by Dermatology Arelis done blood work and biopsy and has referred her to barman. She otherwise offers no issues or concerns at this time. Patient denies inquires concerning signs and symptoms for connective tissue disease. [facility] Medical History (Updated 02/28/23 @ 14:42 by ROBBIN Solorzano) Skin lesion Colonoscopy refused Chest pain Urinary incontinence Dizziness Annual physical exam Menopausal disorder Urinary incontinence DM type 2 (diabetes mellitus, type 2) Pruritus Carpal tunnel syndrome on both sides Hyperglycemia Hyperlipemia Hypertension HSV (herpes simplex virus) infection HPV (human papilloma virus) infection Surgical History Hx of unilateral oophorectomy Family History Father No problems noted. Mother No problems noted. Social History Housing: House Alcohol intake: never Patient Tobacco Use Status: Never used Tobacco e-Cigarette/Vaping Use: Never Used Second Hand Smoke Exposure: No service: No Current occupational status: employed Current occupational exposures/hazards: No Sexual orientation: Straight/Heterosexual Gender identity: Female Cognitive needs: No Hearing needs: No Vision needs: Yes Female Reproductive History Menstrual Age of Menarche: 14 Review of Systems Const All systems reviewed & are unremarkable except as noted in HPI and below Physical Exam Vital Signs: Last Vital Signs Temp 97 F 02/28/23 13:17 Pulse 81 02/28/23 13:17 BP 126/78 02/28/23 13:17 Pulse Ox 97 02/28/23 13:17 Oxygen Delivery Method Room Air 02/28/23 13:17 BMI result Body Mass Index 29.5 Vital signs reviewed. Constitutional: Non-toxic appearing. No acute distress. Well-developed and well-nourished. HEENT: Normocephalic and atraumatic. External auditory canals without erythema or edema bilaterally. Dry mucous membranes. No pharyngeal erythema or exudates. Skin: Warm and dry. Scattered erythematous lesions to upper and lower extremities, back. Venous stasis changes lower legs R>L Neck: Full and painless range of motion. No cervical lymphadenopathy. Cardiovascular: Regular rate and rhythm. No murmurs, gallops, or rubs. Lower extremity edema R>L, Venous congestion. No JVD. Pulmonary: No respiratory distress. No accessory muscle usage. Scattered expiratory wheezing. Musculoskeletal: Normal range of motion in joints throughout the body. No deformity or other signs of injury. Results Reviewed Results Reviewed: 02/08/2023 Labs CBC grossly normal, eosinophils 6.9 high CMP grossly normal; chloride 110, BUN 22,, calcium 9.2, albumin 4.2, calcium 9.2 , EGFR >60, creatinine 0.83, alk-phos 66 TSH 1.74 ЮЛИЯ negative Assessment & Plan Assessment & Plan (1) Osteoporosis: Comment: Intolerant to alendronate (dizziness) Code(s): M81.0 - Age-related osteoporosis without current pathological fracture Qualifiers: Osteoporosis type: age-related Presence of current pathological fracture: without current pathological fracture Qualified Code(s): M81.0 - Age-related osteoporosis without current pathological fracture (2) High risk for fracture due to osteoporosis by DEXA scan: Code(s): M81.0 - Age-related osteoporosis without current pathological fracture (3) Skin lesion: Code(s): L98.9 - Disorder of the skin and subcutaneous tissue, unspecified Plan #Osteoporosis: Mrs. Magallanes 77-year-old female, here with her daughter, was referred by her primary care physician for treatment of osteoporosis. Ms. Magallanes was tried on alendronate and found to experience dizziness while on the medication. I think it is appropriate to start her on Reclast. I will go obtain labs to evaluate that it is within reason to start the zoledronic acid at this time. We discussed the possible side effects of zoledronic Acid to include but is not limited to itch and rash and symptoms speicifc to patient. #Skin Lesions: It appears patient is having some allergic reaction to an unknown irritant. She she is having new outbreak to her upper extremity. She has elevated eosinophils but give some credence to the theory that this is an allergic reaction. I recommend she continue to follow-up with DERM and the Health Management Consultant. It is less likely but I will order an ANCA to further rule out this association. She should also continue Loratidine, and can try calamine lotion for the itch. Her ESR/CRP are WNL Orders: Orders ANCA Vasculitides Today L98.9 - Disorder of the skin and subcutaneous tissue, unspecified Collagen Crosslinks NTX Today M81.0 - Age-related osteoporosis without current pathological fracture Collagen Type I C-Telopeptide Today M81.0 - Age-related osteoporosis without current pathological fracture Vitamin D 1,25 dihydroxy Today M81.0 - Age-related osteoporosis without current pathological fracture Phosphorus Today M81.0 - Age-related osteoporosis without current pathological fracture C Reactive Protein Today M81.0 - Age-related osteoporosis without current pathological fracture Creatinine Clearance Urine Today M81.0 - Age-related osteoporosis without current pathological fracture Coding Level of Care Code New Pt Level 4 (82508) Diagnoses Age-related osteoporosis without current pathological fracture M81.0 Osteoporosis type: age-related Presence of current pathological fracture: without current pathological fracture High risk for fracture due to osteoporosis by DEXA scan M81.0 Skin lesion L98.9
== END 2023-02-28 14:19 | disposition home or self-care (01) ==
PROVIDERS: PCP Internal Medicine; Visit Provider Nurse Practitioner Family
DX: M81.0 Age-related osteoporosis without current pathological fracture (principal); L98.9 Disorder of the skin and subcutaneous tissue, unspecified
CPT/HCPCS: 99204

== ENCOUNTER 2023-03-01 10:28 | Outpatient (REF) | payer MEDICARE, SELFPAY ==
[2023-03-08 14:19] LABS: N-Telopeptide 28 (see note); NTXCreaRU 25 mg/dL (20-275)
== END 2023-03-01 10:29 | disposition home or self-care (01) ==
LOC: HO.LNP 10:28
PROVIDERS: Visit Provider Nurse Practitioner Family
DX: M81.0 Age-related osteoporosis without current pathological fracture (principal)
CPT/HCPCS: 82523

== ENCOUNTER 2023-03-02 07:47 | Outpatient (REF) | payer MEDICARE, SELFPAY ==
[2023-03-02 12:05] LABS: MANUAL DIFF FLAG NO
[2023-03-02 12:38] LABS: Basophils Percent Auto 0.5 % (0-2); Eosinophils Absolute Auto 0.8 X10*3/uL (0.0-0.4); Eosinophils Percent Auto 13.4 % (0-4); Hematocrit 47.4 % (37.0-47.0); Hemoglobin 14.9 g/dl (12.0-16.0); Imm Gran Abs Auto 0.01 X10*3/uL (0.00-0.03); Imm Gran Pct Auto 0.2 % (0.0-0.4); Lymphocytes Absolute Auto 1.9 X10*3/uL (1.2-4.9); Lymphocytes Percent Auto 30.5 % (20-40); Mean Corpuscular HGB Conc 31.4 g/dl (31.0-35.0); Mean Corpuscular Hemoglobin 29.3 pg (27.0-33.0); Mean Corpuscular Volume 93.1 fL (80.0-98.0); Mean Platelet Volume 11.3 fL (9.4-12.3); Monocytes Absolute Auto 0.5 X10*3/uL (0.1-1.2); Monocytes Percent Auto 8.2 % (2-11); Neutrophils Absolute Auto 2.9 x10*3/uL (2.0-8.3); Neutrophils Percent Auto 47.2 % (45-73); Platelet Count 172 X10*3/uL (160-400); Red Blood Count 5.09 X10*6/uL (4.20-5.50); Red Cell Distribution Width 12.6 % (11.0-16.0); White Blood Count 6.1 X10*3/uL (4.8-10.8)
[2023-03-02 12:52] LABS: Creatinine Urine 52.61 mg/dL
[2023-03-02 12:53] LABS: Estimated Average Glucose 166 mg/dL; Hemoglobin A1c % 7.4 % (<6.0)
[2023-03-02 13:19] LABS: Alanine Aminotransferase 16 U/L (0-31); Alkaline Phosphatase 63 U/L (39-117); Anion Gap 11 (12-20); Aspartate Amino Transferase 17 U/L (5-31); Bilirubin Total 0.6 mg/dL (0.0-1.0); Blood Urea Nitrogen 15 mg/dL (9-16); Calcium 8.9 mg/dL (8.4-10.2); Carbon Dioxide 28 mmol/L (22-29); Chloride 107 mmol/L (96-108); Cholesterol 196 mg/dL (<200); Estimated Glomerular Filt Rate > 60; Glucose Fasting 150 mg/dL (60-99); HDL Cholesterol 55 mg/dL (>40); LDL Cholesterol Calculated 119 mg/dL (<100); Potassium 3.8 mmol/L (3.3-5.1); Sodium 142 mmol/L (135-145); Total Protein 7.3 g/dL (6.5-8.0); Triglycerides 111 mg/dL (<150)
[2023-03-02 13:36] LABS: TSH reflex Free T4 1.08 uIU/mL (0.32-4.0)
== END 2023-03-02 07:48 | disposition home or self-care (01) ==
LOC: HO.HMGCLDS 07:47
PROVIDERS: PCP Internal Medicine; Visit Provider Internal Medicine
DX: E78.5 Hyperlipidemia, unspecified (principal); E11.9 Type 2 diabetes mellitus without complications; I10 Essential (primary) hypertension
CPT/HCPCS: 36415; 80053; 80061; 82043; 82570; 83036; 84443; 85025

== ENCOUNTER 2023-03-06 15:17 | Outpatient (AMB) | payer MEDICARE, SELFPAY ==
--- NOTE | 2023-03-06 15:19 | MHC.OFFVIS ---
Intake Vital Signs 03/06/23 15:20 Height 5 ft 3 in Weight 172 lb BMI 30.5 Intake Visit Reasons: SENIOR LITIGATION PARALEGAL Intake Note: SENIOR LITIGATION PARALEGAL , pt has bilateral LE VV w/ discoloration, itching, rash, swelling and Large rope like VV. Right is worse than Left LE. Pt is also being seen by dermatology for the rash. Film Projector Operator Required: Yes Film Projector Operator Language: [place] Citizen Film Projector Operator Name: Caridad (daughter) Information Interpreted: clinical only Accompanied by: Daughter Allergies hydrochlorothiazide Allergy (Intermediate, Verified 03/08/23 12:32) Nausea triamterene Allergy (Intermediate, Verified 03/08/23 12:32) nausea clarithromycin [From Biaxin] Allergy (Unknown, Verified 03/08/23 12:32) unknown doxycycline Allergy (Unknown, Verified 03/08/23 12:32) unknown alendronate sodium Adverse Reaction (Intermediate, Verified 03/08/23 12:32) Dizziness lisinopril Adverse Reaction (Intermediate, Verified 03/08/23 12:32) cough losartan Adverse Reaction (Intermediate, Verified 03/08/23 13:17) Fatigued dapagliflozin [From Farxiga] Adverse Reaction (Verified 03/08/23 12:32) severe Chest Pain HPI SENIOR LITIGATION PARALEGAL HPI Details Very pleasant 77-year-old female patient presents for painful varicose veins. Complaints include pain over varicosities, swelling of lower extremities, cramping, fatigue, and heaviness of the lower extremities. It has been affecting there daily activities including walking. It is noted more so in right leg. Of concern is a rash that she has throughout her body and causes a fair amount of itching. She has been seen by Dermatology for this. Patient reports some sort of vein procedure performed at [facility] nearly 10 years prior Patient denies any history of DVT/ PE. Patient denies any history of phlebitis. Trial of compression includes - [id number] They now present for vascular evaluation regarding their varicose veins. [facility] Medical History (Updated 03/09/23 @ 08:33 by Jer Pelletier MD) Skin lesion Colonoscopy refused Chest pain Urinary incontinence Dizziness Annual physical exam Urinary incontinence DM type 2 (diabetes mellitus, type 2) Pruritus Carpal tunnel syndrome on both sides Hyperglycemia Hyperlipemia Hypertension HSV (herpes simplex virus) infection HPV (human papilloma virus) infection Surgical History Hx of unilateral oophorectomy Family History Father No problems noted. Mother No problems noted. Social History Housing: House Alcohol intake: never Patient Tobacco Use Status: Never used Tobacco e-Cigarette/Vaping Use: Never Used Second Hand Smoke Exposure: No service: No Current occupational status: employed Current occupational exposures/hazards: No Sexual orientation: Straight/Heterosexual Gender identity: Female Cognitive needs: No Hearing needs: No Vision needs: Yes Female Reproductive History Menstrual Age of Menarche: 14 Review of Systems Const Reports as per HPI ENT Reports no additional complaints Card Denies chest pain, Denies chest pain at rest and Denies chest pain with activity Resp Denies chest congestion and Denies cough GI Reports no additional complaints Musc Details: pain over varicosities, aching of lower extremities, swelling, cramping, heaviness and tiredness, itching Denies abnormal gait Skin/Breast Reports pruritus and Denies wounds Neuro Reports no additional complaints and Denies abnormal gait Psych Denies no additional complaints Physical Exam Vital Signs: BMI result Body Mass Index 30.5 Const General: cooperative, healthy appearing and comfortable Orientation/consciousness: oriented to person, oriented to place and oriented to time Neck Carotids: no bruits Chest Chest palpation & inspection: normal inspection of the chest and normal palpation of entire chest wall Resp Effort & Inspection: normal respiratory effort and able to speak in complete sentences Cardio Rate: regular rate Heart sounds: S1 normal heart sound present and S2 normal heart sound present Peripheral pulses: Peripheral pulses 2+ throughout GI Inspection: Yes normal to inspection Skin Other: +2 edema, large rope-like varicosities greater than 4 mm CEAP Classification C4 - skin color changes Ep - Etiology Primary As - superficial veins P - reflux General skin exam: dry skin Neuro General: oriented to person, oriented to place and oriented to time Extrem Right lower extremity: full ROM, normal capillary refill and edema Left lower extremity: full ROM, normal capillary refill and edema Psych Mental Status: mental status grossly normal Assessment & Plan Assessment & Plan (1) Varicose veins of right lower extremity with inflammation: Code(s): I83.11 - Varicose veins of right lower extremity with inflammation Plan: In short, the patient has evidence of venous insufficiency. I have discussed the pathophysiology with the patient. In addition I have provided informational material regarding venous disease to the patient. We have discussed conservative measures including compression, elevation, and exercise. I have also provided a handout regarding appropriate use of compression stockings and where to purchase good compression stockings as well. I have taken the liberty of ordering venous insufficiency testing with the patient. They will follow up with me after testing. The patient had an opportunity to ask questions regarding the treatment plan. All questions were answered. Imaging studies, laboratory studies and physical exam results were discussed and reviewed in detail. No major barriers to understanding were identified. The patient expressed understanding and agreement with the above treatment plan. The patient is aware they should contact our office by phone for worsening of the current condition or the appearance of new symptoms. Thank you for allowing me to participate in the vascular care of this patient. If you have any questions or concerns regarding the treatment for the above condition please do not hesitate to contact me. The office telephone contact is [phone]. This note is constructed using voice recognition software. While every effort has been made to ensure accuracy, passementerie worker errors may have been included. Thank you for allowing me to participate in the care of your patient. Yours sincerely, Jer Pelletier MD, FACS, R.P.V.I. Orders: Orders US venous duplex LE BI 1 Week I83.11 - Varicose veins of right lower extremity with inflammation Coding Level of Care Code New Pt Level 4 (49993) Diagnoses Varicose veins of right lower extremity with inflammation I83.11
[2023-03-06 15:20] VITALS: BMI 30.5
== END 2023-03-06 15:47 | disposition home or self-care (01) ==
PROVIDERS: PCP Internal Medicine; Visit Provider Surgery Vascular Surgery
DX: I83.11 Varicose veins of right lower extremity with inflammation (principal)
CPT/HCPCS: 99203

== ENCOUNTER → 2023-03-06 15:17 | Outpatient (BNVA) | payer MEDICARE, SELFPAY | PROVIDERS: PCP Internal Medicine; Visit Provider Surgery Vascular Surgery | DX: I83.11 Varicose veins of right lower extremity with inflammation (principal) | CPT/HCPCS: 99202 ==

== ENCOUNTER 2023-03-08 12:20 | Outpatient (AMB) | payer MEDICARE, SELFPAY ==
--- NOTE | 2023-03-08 12:24 | MHC.PC.OV ---
Vital Signs 03/08/23 12:30 Height 5 ft 3 in Weight 165 lb BMI 29.2 BP 134/78 Blood Pressure Location Lt brachial Position Sitting Pulse 82 Pulse Source Pulse Oximeter Pulse Oximetry (%) 97 Oxygen Delivery Method Room Air Intake Visit Reasons: 3 month follow up Intake Note: Pt is here today for 3 months follow up visit. Allergies hydrochlorothiazide Allergy (Intermediate, Verified 03/08/23 12:32) Nausea triamterene Allergy (Intermediate, Verified 03/08/23 12:32) nausea clarithromycin [From Biaxin] Allergy (Unknown, Verified 03/08/23 12:32) unknown doxycycline Allergy (Unknown, Verified 03/08/23 12:32) unknown alendronate sodium Adverse Reaction (Intermediate, Verified 03/08/23 12:32) Dizziness lisinopril Adverse Reaction (Intermediate, Verified 03/08/23 12:32) cough losartan Adverse Reaction (Intermediate, Verified 03/08/23 13:17) Fatigued dapagliflozin [From Farxiga] Adverse Reaction (Verified 03/08/23 12:32) severe Chest Pain Medication List - Last Reconciled 03/08/23 by Kimberlyn Noland MD amlodipine 5 mg PO DAILY ascorbic acid (vitamin C) (Vitamin C) 50 mg PO DAILY atorvastatin 40 mg PO DAILY betamethasone dipropionate 0.05% 1 appl topical BID PRN blood sugar diagnostic ([employer] Verio test strips) Test once per day blood-glucose meter ([employer] Verio Flex Meter) Use daily as directed cholecalciferol (vitamin D3) (Vitamin D3) 25 mcg PO DAILY dapagliflozin propanediol (Farxiga) 5 mg PO DAILY famotidine (Pepcid) 40 mg PO BEDTIME glipizide 5 mg PO BID hydrocortisone 2.5% 1 appl topical BID-TID PRN hydroxyzine HCl 25 mg PO QID lancets ([employer] Delica Plus Lancet) Test blood sugar once a day loratadine 10 mg PO DAILY metoprolol succinate ER 100 mg PO DAILY omega-3 fatty acids 1 cap PO DAILY omeprazole 20 mg PO DAILY pimecrolimus 1% 1 appl topical BID solifenacin 10 mg PO DAILY 90 days triamcinolone acetonide 0.1% 1 appl topical DAILY Tobacco use date assessed: 01/11/23 HPI 3 month follow up HPI Details Pt presents for f/u HTN, hyperlipid, DM2. Pt c/o persistent pruritus and rash on the lower and upper extremities and upper back. Patient tried multiple topical treatments including different steroidscreams, antihistamines, prednisone tapers.. She is currently being evaluated by lead front desk agent and dermatology. Patient was referred to rheumatology for osteopenia by stenciler. [facility] Medical History (Updated 03/08/23 @ 13:15 by Kimberlyn Noland MD) Skin lesion Colonoscopy refused Chest pain Urinary incontinence Dizziness Annual physical exam Urinary incontinence DM type 2 (diabetes mellitus, type 2) Pruritus Carpal tunnel syndrome on both sides Hyperglycemia Hyperlipemia Hypertension HSV (herpes simplex virus) infection HPV (human papilloma virus) infection Surgical History Hx of unilateral oophorectomy Family History Father No problems noted. Mother No problems noted. Social History Housing: House Alcohol intake: never Patient Tobacco Use Status: Never used Tobacco e-Cigarette/Vaping Use: Never Used Second Hand Smoke Exposure: No service: No Current occupational status: employed Current occupational exposures/hazards: No Sexual orientation: Straight/Heterosexual Gender identity: Female Cognitive needs: No Hearing needs: No Vision needs: Yes Female Reproductive History Menstrual Age of Menarche: 14 Questionnaire Thrive Questionnaire Date Thrive assessed: 09/06/22 SHILPI-7 AMB Questionnaire SHILPI-7 Date SHILPI - 7 assessed: 09/06/22 Source: Developed by Drs. Aniket Palencia, Radha Alston, Homer Palmer and colleagues, with an educational heather from [employer]. Review of Systems Const All systems reviewed & are unremarkable except as noted in HPI and below Reports no additional complaints Eyes Reports no additional complaints ENT Reports no additional complaints Card Reports no additional complaints Resp Reports no additional complaints GI Reports no additional complaints Physical exam (Primary Care) Vital Signs: Last Vital Signs Pulse 82 03/08/23 12:30 BP 134/78 03/08/23 12:30 Pulse Ox 97 03/08/23 12:30 Oxygen Delivery Method Room Air 03/08/23 12:30 BMI result Body Mass Index 29.2 Tobacco/Smoking Status: Tobacco use Status Tobacco use date assessed 01/11/23 03/08/23 12:25 Patient Tobacco Use Status Never used Tobacco 03/08/23 12:25 e-Cigarette/Vaping Use Never Used 03/08/23 12:25 Thrive Assessment: Date of Thrive Assessment Date Thrive assessed 09/06/22 03/08/23 12:25 Const General: no acute distress HENMT Head: Yes normal to inspection Ears: hearing grossly normal bilaterally General nose exam: Normal external nose present Throat: Yes posterior oropharynx normal Neck Neck: Yes supple Resp Effort & Inspection: normal respiratory effort Auscultation: clear to auscultation bilaterally Cardio Rhythm: regular rhythm Heart sounds: S1 normal heart sound present and S2 normal heart sound present GI Inspection: Yes normal to inspection Palpation (GI): Soft to palpation Extrem Other: Erythematous papular rash on anterior thighs, extensor forearms, left upper back with multiple excoriation [place]. Chronic venous stasis changes on the lower extremities with multiple excoriations Psych Affect: Anxious affect present Assessment and Plan Assessment & Plan (1) Anxiety: Code(s): F41.9 - Anxiety disorder, unspecified Plan: Stress management discussed with the patient she declined taking medications for chronic anxiety (2) DM type 2 (diabetes mellitus, type 2): Comment: Metformin caused stomach Code(s): E11.9 - Type 2 diabetes mellitus without complications Plan: A1c is 7.4, ADA diet increase physical activity discussed with the patient. She declined increasing dose of Farxiga. (3) Hypertension: Code(s): I10 - Essential (primary) hypertension Plan: Continue current medications (4) Hyperlipemia: Code(s): E78.5 - Hyperlipidemia, unspecified Plan: Continue statin (5) Osteopenia: Comment: DEXA 11/15 lowest T score -1.8, unchanged from 11/13, patient could not tolerate Fosamax caused dizziness, referred to rheumatology by Employee Relations Consultant 02/15 Code(s): M85.80 - Other specified disorders of bone density and structure, unspecified site Plan: Continue vitamin-D (6) Rash: Comment: pruritic, unresponsive to multiple topical and systemic therapy, f/u with dermatology/allergy, ?dry skin (better in the summer), anxiety related Code(s): R21 - Rash and other nonspecific skin eruption Plan: Patient was advised to start anxiety treatment and use topical mild moisturizer, avoiding hot showers. She will follow-up with dermatology and allergy Orders: Orders Hemoglobin A1c 4 Months E11.9 - Type 2 diabetes mellitus without complications, E78.5 - Hyperlipidemia, unspecified, I10 - Essential (primary) hypertension Microalbumin, Random (w Creat) 4 Months E11.9 - Type 2 diabetes mellitus without complications, E78.5 - Hyperlipidemia, unspecified, I10 - Essential (primary) hypertension Comprehensive [place]. Panel Fast 4 Months E11.9 - Type 2 diabetes mellitus without complications, E78.5 - Hyperlipidemia, unspecified, I10 - Essential (primary) hypertension Lipid Panel 4 Months E11.9 - Type 2 diabetes mellitus without complications, E78.5 - Hyperlipidemia, unspecified, I10 - Essential (primary) hypertension Complete Blood Count Auto Diff 4 Months E11.9 - Type 2 diabetes mellitus without complications, E78.5 - Hyperlipidemia, unspecified, I10 - Essential (primary) hypertension Medications: Discontinued hydroxyzine HCl Discontinued Reason: Doctor's Order 25 mg PO QID 120 tabs 1RF Coding Level of Care Code Est Pt Level 4 (45708) Diagnoses Anxiety F41.9 DM type 2 (diabetes mellitus, type 2) E11.9 Hypertension I10 Hyperlipemia E78.5 Osteopenia M85.80 Rash R21
[2023-03-08 12:30] VITALS: BP 134/78; PULSE 82; O2SAT 97; BMI 29.2
== END 2023-03-08 13:18 | disposition home or self-care (01) ==
LOC: HO.HMGC 12:20
PROVIDERS: PCP Internal Medicine; Visit Provider Internal Medicine
DX: F41.9 Anxiety disorder, unspecified (principal); E11.9 Type 2 diabetes mellitus without complications; I10 Essential (primary) hypertension; E78.5 Hyperlipidemia, unspecified; M85.80 Other specified disorders of bone density and structure, unspecified site; R21 Rash and other nonspecific skin eruption
CPT/HCPCS: 99214

== ENCOUNTER 2023-03-28 12:44 | Outpatient (REF) | payer MEDICARE, SELFPAY | END 2023-03-28 12:45 | disposition home or self-care (01) | LOC: HO.US 12:44 | PROVIDERS: PCP Internal Medicine; Visit Provider Surgery Vascular Surgery | DX: I83.11 Varicose veins of right lower extremity with inflammation (principal) | CPT/HCPCS: 93970 ==

== ENCOUNTER 2023-04-19 13:46 | Outpatient (AMB) | payer MEDICARE, SELFPAY ==
[2023-04-19 13:48] VITALS: BP 150/78; PULSE 72; O2SAT 96; BMI 29.0
--- NOTE | 2023-04-19 13:48 | A.OFFVIS_ITS ---
Intake Vital Signs 04/19/23 13:48 Height 5 ft 3 in Weight 164 lb BMI 29.0 BP 150/78 H Blood Pressure Location Rt brachial Position Sitting Pulse 72 Pulse Source Pulse Oximeter Pulse Oximetry (%) 96 Oxygen Delivery Method Room Air Intake Visit Reasons: Follow up 03/28 US Intake Note: Pt presents to the office today for a follow up US 03/28/23. Pt states her legs are still itchy behind the knees down to her feet. Pt states also has discoloration in both of her legs. Pt also states she has swelling in both legs. Allergies hydrochlorothiazide Allergy (Intermediate, Verified 04/19/23 13:49) Nausea triamterene Allergy (Intermediate, Verified 04/19/23 13:49) nausea clarithromycin [From Biaxin] Allergy (Unknown, Verified 04/19/23 13:49) unknown doxycycline Allergy (Unknown, Verified 04/19/23 13:49) unknown alendronate sodium Adverse Reaction (Intermediate, Verified 04/19/23 13:49) Dizziness lisinopril Adverse Reaction (Intermediate, Verified 04/19/23 13:49) cough losartan Adverse Reaction (Intermediate, Verified 04/19/23 13:49) Fatigued dapagliflozin [From Farxiga] Adverse Reaction (Verified 04/19/23 13:49) severe Chest Pain HPI Follow up 03/28 US HPI Details Very pleasant 77-year-old female presents for follow-up with venous insufficiency testing. She has had prior right lower extremity stripping. She is extremely large varicosities. Unclear how long this has been going on for. She now presents for follow-up with venous insufficiency testing. [facility] Medical History Skin lesion Colonoscopy refused Chest pain Urinary incontinence Dizziness Annual physical exam Urinary incontinence DM type 2 (diabetes mellitus, type 2) Pruritus Carpal tunnel syndrome on both sides Hyperglycemia Hyperlipemia Hypertension HSV (herpes simplex virus) infection HPV (human papilloma virus) infection Surgical History Hx of unilateral oophorectomy Family History Father No problems noted. Mother No problems noted. Social History Housing: House Alcohol intake: never Patient Tobacco Use Status: Never used Tobacco e-Cigarette/Vaping Use: Never Used Second Hand Smoke Exposure: No service: No Current occupational status: employed Current occupational exposures/hazards: No Sexual orientation: Straight/Heterosexual Gender identity: Female Cognitive needs: No Hearing needs: No Vision needs: Yes Female Reproductive History Menstrual Age of Menarche: 14 Review of Systems Const Reports as per HPI ENT Reports no additional complaints Card Denies chest pain, Denies chest pain at rest and Denies chest pain with activity Resp Denies chest congestion and Denies cough GI Reports no additional complaints Musc Details: pain over varicosities, aching of lower extremities, swelling, cramping, heaviness and tiredness, itching Denies abnormal gait Skin/Breast Reports pruritus and Denies wounds Neuro Reports no additional complaints and Denies abnormal gait Psych Denies no additional complaints Physical Exam Vital Signs: Last Vital Signs Pulse 72 04/19/23 13:48 BP 150/78 H 04/19/23 13:48 Pulse Ox 96 04/19/23 13:48 Oxygen Delivery Method Room Air 04/19/23 13:48 BMI result Body Mass Index 29.0 Const General: cooperative, healthy appearing and comfortable Orientation/consciousness: oriented to person, oriented to place and oriented to time Neck Carotids: no bruits Chest Chest palpation & inspection: normal inspection of the chest and normal palpation of entire chest wall Resp Effort & Inspection: normal respiratory effort and able to speak in complete sentences Cardio Rate: regular rate Heart sounds: S1 normal heart sound present and S2 normal heart sound present Peripheral pulses: Peripheral pulses 2+ throughout GI Inspection: Yes normal to inspection Skin Other: +2 edema, large rope-like varicosities greater than 4 mm bilateral calf CEAP Classification C4 - skin color changes Ep - Etiology Primary As - superficial veins P - reflux General skin exam: dry skin Neuro General: oriented to person, oriented to place and oriented to time Extrem Right lower extremity: full ROM, normal capillary refill and edema Left lower extremity: full ROM, normal capillary refill and edema Psych Mental Status: mental status grossly normal Results Reviewed Results Reviewed: Brief summary of venous insufficiency testing is as follows: right great saphenous vein: Positive right small saphenous vein: Positive right accessory vein: none present left great saphenous vein: Positive left small saphenous vein: negative left accessory vein: none present Please note there is no evidence of any venous aneurysms or significant tortuosity Assessment & Plan Assessment & Plan (1) Varicose veins of right lower extremity with inflammation: Code(s): I83.11 - Varicose veins of right lower extremity with inflammation Plan: This patient has varicose veins with inflammation. They continue to be a source of discomfort for the patient. The patient has tried conservative treatment with compression, leg elevation and exercise program for over 3 months time. They have been compliant with all treatment. This has provided minimal relief for the patient. I do not anticipate this course of treatment will alter the underlying etiology. The patient has been scheduled for lower extremity venous treatment inclusive of --- right great and accessory great saphenous vein radiofrequency ablation. Risks, benefits, and complications of this procedure has been discussed in detail with the patient including but not limited to bleeding, infection, and the development of a DVT. The patient has demonstrated a clear understanding and has consented. We will schedule the patient as soon as possible. Thank you for allowing us to participate in this patient's care. If there are any questions or concerns please do not hesitate to contact us. Coding Level of Care Code Est Pt Level 4 (60652) Diagnoses Varicose veins of right lower extremity with inflammation I83.11
== END 2023-04-19 14:33 | disposition home or self-care (01) ==
PROVIDERS: PCP Internal Medicine; Visit Provider Surgery Vascular Surgery
DX: I83.11 Varicose veins of right lower extremity with inflammation (principal)
CPT/HCPCS: 99214

== ENCOUNTER → 2023-04-19 13:46 | Outpatient (BNVA) | payer MEDICARE, SELFPAY | PROVIDERS: PCP Internal Medicine; Visit Provider Surgery Vascular Surgery | DX: I83.11 Varicose veins of right lower extremity with inflammation (principal) | CPT/HCPCS: 99212 ==

== ENCOUNTER 2023-07-07 09:44 | Outpatient (REF) | payer MEDICARE, SELFPAY ==
[2023-07-07 11:33] LABS: MANUAL DIFF FLAG NO
[2023-07-07 11:37] LABS: Basophils Percent Auto 0.4 % (0-2); Eosinophils Absolute Auto 0.1 X10*3/uL (0.0-0.4); Hematocrit 47.2 % (37.0-47.0); Hemoglobin 15.5 g/dl (12.0-16.0); Imm Gran Abs Auto 0.01 X10*3/uL (0.00-0.03); Imm Gran Pct Auto 0.1 % (0.0-0.4); Lymphocytes Absolute Auto 1.7 X10*3/uL (1.2-4.9); Lymphocytes Percent Auto 24.3 % (20-40); Mean Corpuscular HGB Conc 32.8 g/dl (31.0-35.0); Mean Corpuscular Hemoglobin 30.3 pg (27.0-33.0); Mean Corpuscular Volume 92.2 fL (80.0-98.0); Mean Platelet Volume 11.5 fL (9.4-12.3); Monocytes Absolute Auto 0.5 X10*3/uL (0.1-1.2); Monocytes Percent Auto 6.3 % (2-11); Neutrophils Absolute Auto 4.7 x10*3/uL (2.0-8.3); Neutrophils Percent Auto 66.9 % (45-73); Platelet Count 198 X10*3/uL (160-400); Red Blood Count 5.12 X10*6/uL (4.20-5.50); Red Cell Distribution Width 12.9 % (11.0-16.0); White Blood Count 7.1 X10*3/uL (4.8-10.8)
[2023-07-07 11:43] LABS: Estimated Average Glucose 154 mg/dL
[2023-07-07 11:57] LABS: Alanine Aminotransferase 23 U/L (0-31); Albumin Level 4.3 g/dL (3.5-5.0); Alkaline Phosphatase 68 U/L (39-117); Anion Gap 11 (12-20); Aspartate Amino Transferase 21 U/L (5-31); Bilirubin Total 0.6 mg/dL (0.0-1.0); Blood Urea Nitrogen 14 mg/dL (9-16); Calcium 9.4 mg/dL (8.4-10.2); Carbon Dioxide 27 mmol/L (22-29); Chloride 108 mmol/L (96-108); Cholesterol 209 mg/dL (<200); Estimated Glomerular Filt Rate > 60; Glucose Fasting 160 mg/dL (60-99); HDL Cholesterol 71 mg/dL (>40); LDL Cholesterol Calculated 122 mg/dL (<100); Potassium 3.9 mmol/L (3.3-5.1); Sodium 142 mmol/L (135-145); Total Protein 7.9 g/dL (6.5-8.0); Triglycerides 80 mg/dL (<150)
[2023-07-07 12:04] LABS: Creatinine Urine 21.85 mg/dL; Microalbum/Creatinine Ratio Ur 22.8 ug/mg cr (<30)
== END 2023-07-07 09:45 | disposition home or self-care (01) ==
LOC: HO.HMGCLDS 09:44
PROVIDERS: PCP Internal Medicine; Visit Provider Internal Medicine
DX: I10 Essential (primary) hypertension (principal); E11.9 Type 2 diabetes mellitus without complications; E78.5 Hyperlipidemia, unspecified
CPT/HCPCS: 36415; 80053; 80061; 82043; 82570; 83036; 85025

== ENCOUNTER 2023-07-13 12:23 | Outpatient (AMB) | payer MEDICARE, SELFPAY ==
[2023-07-13 12:31] VITALS: BMI 29.0
--- NOTE | 2023-07-13 12:31 | MHC.OFFVIS ---
Vital Signs 07/13/23 12:31 Height 5 ft 3 in Weight 164 lb BMI 29.0 Intake Visit Reasons: Right GSV RFA Accompanied by: Self / Same As Patient Allergies hydrochlorothiazide Allergy (Intermediate, Verified 07/13/23 12:32) Nausea triamterene Allergy (Intermediate, Verified 07/13/23 12:32) nausea clarithromycin [From Biaxin] Allergy (Unknown, Verified 07/13/23 12:32) unknown doxycycline Allergy (Unknown, Verified 07/13/23 12:32) unknown alendronate sodium Adverse Reaction (Intermediate, Verified 07/13/23 12:32) Dizziness lisinopril Adverse Reaction (Intermediate, Verified 07/13/23 12:32) cough losartan Adverse Reaction (Intermediate, Verified 07/13/23 12:32) Fatigued dapagliflozin [From Farxiga] Adverse Reaction (Verified 07/13/23 12:32) severe Chest Pain PFSH Medical History Skin lesion Colonoscopy refused Chest pain Urinary incontinence Dizziness Annual physical exam Urinary incontinence DM type 2 (diabetes mellitus, type 2) Pruritus Carpal tunnel syndrome on both sides Hyperglycemia Hyperlipemia Hypertension HSV (herpes simplex virus) infection HPV (human papilloma virus) infection Surgical History Hx of unilateral oophorectomy Family History Father No problems noted. Mother No problems noted. Social History Housing: House Alcohol intake: never Patient Tobacco Use Status: Never used Tobacco e-Cigarette/Vaping Use: Never Used Second Hand Smoke Exposure: No service: No Current occupational status: employed Current occupational exposures/hazards: No Sexual orientation: Straight/Heterosexual Gender identity: Female Cognitive needs: No Hearing needs: No Vision needs: Yes Female Reproductive History Menstrual Age of Menarche: 14 Physical Exam Vital Signs: BMI result Body Mass Index 29.0 Office Procedures Vascular Office Procedure Details Details: Diagnosis: Varicose veins with inflammation of right leg Procedure: Endovenous radiofrequency ablation of the right great saphenous vein and accessory saphenous vein of the lower extremity with Venclose RF ablation Anesthesia: Local infiltration 5 cc, Tumescent 300 cc. Estimated Blood Loss: Minimal The patient was transferred to the procedure suite and the insufficient saphenous vein was mapped by ultrasound and diagrammed on the overlying skin. The depth and diameter of the vein(s) to be treated was documented. The varicose tributary veins and suitable access sites were identified and mapped as well. The patient was then positioned supine on the procedure table. The affected limb was prepped and draped in the usual sterile fashion. The RF catheter was placed on the sterile field, flushed and wiped down, prepared, and connected by a sterile cable. The patient was placed in a supine position and local anesthesia was instilled in the skin overlying the access site. A skin incision was made overlying the identified and mapped great saphenous vein entry site. The vein was accessed using ultrasound guidance and the Seldinger technique, a guide wire was introduced through the needle, which was then exchanged over the guide wire for a 6F sheath, which was secured in place. The guide wire was removed and the sheath was flushed. The RF catheter was placed into the vein through the sheath and preferentially, imaging was used to place the catheter tip just inferior to the superficial epigastric vein to preserve normal physiological flow in that vein. Additionally, it was confirmed by ultrasound guidance that the catheter tip was also placed a minimum of 1.5cm distal to the saphenofemoral junction. After the RF catheter position was verified by ultrasound, tumescent anesthesia was infiltrated, under ultrasound guidance, precisely into the perivenous compartment along the entire length of vein from the entry site to the saphenofemoral junction until a halo of fluid was noted around the vein. The 1st access was done at the below-knee position in more lateral aspect a accessory saphenous vein. The patient was appropriately position. After RF catheter position was again confirmed with ultrasound imaging, and under direct external compression along the length of the heating element, RF energy was applied. The vein was segmentally ablated by heating a 10 cm segment and then indexing the catheter forward by 9.5 cm until the treatment length is completed. Device temperature was maintained at 120 plus or minus 5 degrees C with an initial power level of 4W/cm dropping to below 2W/cm for each treatment. Total vein length treated 10 cm Total cycles of RF 2. In a similar fashion we then accessed the great saphenous vein was accessed near the junction. After the RF catheter was position right near the saphenofemoral junction under direct external compression along the length of the heating element RF energy was applied. The vein was segmentally ablated by heating a 2.5 cm segment and then indexing the catheter forward by 2 cm until the treatment length was completed. Total length of vein treated was 7.5 cm with a total RF cycles of 7 Repeat ultrasound of the saphenous vein was performed, confirming successful treatment. The catheter and sheath were withdrawn and hemostasis established with direct pressure. After assuring hemostasis, the skin incision over the saphenous vein was closed with a steristip and a compression wrap was applied from the level of the foot to the most proximal level of the thigh. Discharge instructions were given to the patient inclusive of follow-up ultrasound and recommended follow-up with us. 70422 - Endovenous RF, 1st Vein 66825 - RF Ablation, subsequent vein All charges added?: Procedure code (CPT) selection complete Assessment & Plan Assessment & Plan (1) Varicose veins of right lower extremity with inflammation: Comment: 07/13/2023 - ablation of right great and accessory saphenous vein Code(s): I83.11 - Varicose veins of right lower extremity with inflammation Category: Medical Plan: See op note
== END 2023-07-13 13:47 | disposition home or self-care (01) ==
PROVIDERS: PCP Internal Medicine; Visit Provider Surgery Vascular Surgery
DX: I83.11 Varicose veins of right lower extremity with inflammation (principal)
CPT/HCPCS: 36475; 36476

== ENCOUNTER → 2023-07-13 12:23 | Outpatient (BNVA) | payer MEDICARE, SELFPAY | PROVIDERS: PCP Internal Medicine; Visit Provider Surgery Vascular Surgery | DX: I83.11 Varicose veins of right lower extremity with inflammation (principal) | CPT/HCPCS: 36475; 36476 ==

== ENCOUNTER 2023-07-16 11:28 | Outpatient (REF) | payer MEDICARE, SELFPAY ==
--- NOTE | ~2023-07-16 | US_ITS ---
EXAMINATION: US VENOUS ULTRASOUND WITH DOPPLER LOWER EXTREMITY, RIGHT CLINICAL INFORMATION: Pain in right leg. Rule out DVT right lower extremity after right great saphenous vein RFA 05/25/2023. COMPARISON: Preprocedure imaging 03/28/2023. TECHNIQUE: Ultrasound of the deep veins is performed from the hip to the calf with compression sonography and color and pulse Doppler assessment. Spectral analysis with color-flow imaging is performed. FINDINGS: There is normal venous compression and respiratory variation and augmented flow. The visualized common femoral vein, superficial femoral vein, profunda femoral vein, popliteal vein, and the trifurcation region shows no evidence of deep venous thrombosis. Postablation changes are seen in the great saphenous vein up to 0.7 cm from the SFJ. US/US venous duplex LE RT IMPRESSION: No DVT demonstrated in the right lower extremity. Postablation changes great saphenous vein as above.
== END 2023-07-16 11:29 | disposition home or self-care (01) ==
LOC: HO.US 11:28
PROVIDERS: PCP Internal Medicine; Visit Provider Surgery Vascular Surgery
DX: M79.604 Pain in right leg (principal)
CPT/HCPCS: 93971

== ENCOUNTER 2023-07-17 12:25 | Outpatient (AMB) | payer MEDICARE, SELFPAY ==
[2023-07-17 12:35] VITALS: BP 140/78; PULSE 74; O2SAT 96; BMI 29.9
--- NOTE | 2023-07-17 12:35 | A.OFFPC_ITS ---
Vital Signs 07/17/23 12:35 Height 5 ft 3 in Weight 169 lb BMI 29.9 BP 140/78 H Blood Pressure Location Lt brachial Position Sitting Pulse 74 Pulse Source Pulse Oximeter Pulse Oximetry (%) 96 Oxygen Delivery Method Room Air Intake Visit Reasons: 4 month follow up - see comments Intake Note: Pt is here today for her 4 months f/u Allergies hydrochlorothiazide Allergy (Intermediate, Verified 07/17/23 12:37) Nausea triamterene Allergy (Intermediate, Verified 07/17/23 12:37) nausea clarithromycin [From Biaxin] Allergy (Unknown, Verified 07/17/23 12:37) unknown doxycycline Allergy (Unknown, Verified 07/17/23 12:37) unknown alendronate sodium Adverse Reaction (Intermediate, Verified 07/17/23 12:37) Dizziness lisinopril Adverse Reaction (Intermediate, Verified 07/17/23 12:37) cough losartan Adverse Reaction (Intermediate, Verified 07/17/23 12:37) Fatigued dapagliflozin [From Farxiga] Adverse Reaction (Verified 07/17/23 12:37) severe Chest Pain Medication List - Last Reconciled 07/17/23 by Kimberlyn Noland MD amlodipine 5 mg PO DAILY ascorbic acid (vitamin C) (Vitamin C) 50 mg PO DAILY atorvastatin 40 mg PO DAILY betamethasone dipropionate 0.05% 1 appl topical BID PRN blood sugar diagnostic ([employer] Verio test strips) Test once per day blood-glucose meter ([employer] Verio Flex Meter) Use daily as directed cholecalciferol (vitamin D3) (Vitamin D3) 25 mcg PO DAILY dupilumab (Dupixent) 300 mg subcut Q2W famotidine (Pepcid) 40 mg PO BEDTIME glipizide 5 mg PO BID hydrocortisone 2.5% 1 appl topical BID-TID PRN lancets ([employer] Delica Plus Lancet) Test blood sugar once a day loratadine 10 mg PO DAILY metoprolol succinate ER 100 mg PO DAILY omega-3 fatty acids 1 cap PO DAILY omeprazole 20 mg PO DAILY pimecrolimus 1% 1 appl topical BID solifenacin 10 mg PO DAILY 90 days triamcinolone acetonide 0.1% 1 appl topical DAILY Tobacco use date assessed: 07/17/23 Fall risk assessment: No Falls in past year Dental Screening Dental Screen Date: 07/17/23 Did you have a dental visit in the last 12 months?: No Was dental information given to patient?: Patient declined HPI 4 month follow up - see comments HPI Details Patient presents for the follow-up on hypertension hyperlipidemia type 2 diabetes. She has been getting Dupixent injections for dermatitis since April with good response. Patient complains of positional vertigo on and off for the last month. Patient had similar symptoms 3 years ago when she was hospitalized underwent neurological workup including brain MRI and CT angiogram of the brain and neck negative for CVA. FOR[facility]LY [facility], [facility] Medical History Skin lesion Colonoscopy refused Chest pain Urinary incontinence Dizziness Annual physical exam Urinary incontinence DM type 2 (diabetes mellitus, type 2) Pruritus Carpal tunnel syndrome on both sides Hyperglycemia Hyperlipemia Hypertension HSV (herpes simplex virus) infection HPV (human papilloma virus) infection Surgical History Hx of unilateral oophorectomy Family History Father No problems noted. Mother No problems noted. Social History Housing: House Alcohol intake: never Patient Tobacco Use Status: Never used Tobacco e-Cigarette/Vaping Use: Never Used Second Hand Smoke Exposure: No service: No Current occupational status: employed Current occupational exposures/hazards: No Sexual orientation: Straight/Heterosexual Gender identity: Female Cognitive needs: No Hearing needs: No Vision needs: Yes Female Reproductive History Menstrual Age of Menarche: 14 Questionnaire PHQ-9 Over the last 2 weeks, how often have you been bothered by any of the following problems? 1. Little interest or pleasure in doing things: not at all 2. Feeling down, depressed, or hopeless: not at all 3. Trouble falling or staying asleep, or sleeping too much: not at all 4. Feeling tired or having little energy: not at all 5. Poor appetite or overeating: not at all 6. Feeling bad about yourself - or that you are a failure or have let yourself or your family down: not at all 7. Trouble concentrating on things, such as reading the newspaper or watching television: not at all 8. Moving or speaking so slowly that other people could have noticed. Or the opposite - being so fidgety or restless that you have been moving around a lot more than usual: not at all 9. Thoughts that you would be better off or of hurting yourself in some way: not at all Total score: 0 Depression Screening Interpretation: Negative Depression Screening Done: Yes 21156 - PHQ-9 Billing: Yes Source: Developed by Drs. Aniket Palencia, Radha Alston, Homer Palmer and colleagues, with an educational heather from [employer]. Thrive Questionnaire Date Thrive assessed: 07/17/23 I am a: Patient What is your living situation today?: I have a steady place to live Within the past 12 months, did the food you bought not last and you didn't have the money to get more?: Never true Within the past 12 months, did you worry whether your food would run out before you got money to buy more?: Never true Do you have trouble paying for medicines?: No Do you have trouble getting transportation to medical appointments?: No Do you have trouble paying your heating and electricity bill?: No Do you have trouble taking care of your child, family member or friend?: No Do you have trouble with day-to-day activities such as bathing, preparing meals, shopping, managing finances, etc.?: No Are you currently unemployed and looking for a job?: No Are you interested in more education?: No THRIVE Score: 0 AUDIT C Alcohol Use Questionnaire (AUDIT-C) 1. How often do you have a drink containing alcohol?: Never Total Score: 0 SHILPI-7 AMB Questionnaire SHILPI-7 Date SHILPI - 7 assessed: 07/17/23 Feeling nervous, anxious, or on edge: 0 = Not at all Not being able to stop or control worryin = Not at all Worrying too much about different things: 0 = Not at all Trouble relaxin = Not at all Being so restless that it is hard to sit still: 0 = Not at all Becoming easily annoyed or irritable: 0 = Not at all Feeling afraid as if something awful might happen: 0 = Not at all Total SHILPI-7 score (0-4 normal; 5-9 mild; 10-14 moderate; 15-21 severe): 0 Source: Developed by Drs. Aniket Palencia, Radha Alston, Homer Palmer and colleagues, with an educational heather from [employer]. Review of Systems Const All systems reviewed & are unremarkable except as noted in HPI and below Reports no additional complaints Eyes Reports no additional complaints ENT Reports no additional complaints Card Reports no additional complaints Resp Reports no additional complaints GI Reports no additional complaints Reports no additional complaints Physical exam (Primary Care) Vital Signs: Last Vital Signs Pulse 74 07/17/23 12:35 BP 140/78 H 07/17/23 12:35 Pulse Ox 96 07/17/23 12:35 Oxygen Delivery Method Room Air 07/17/23 12:35 BMI result Body Mass Index 29.9 Tobacco/Smoking Status: Tobacco use Status Tobacco use date assessed 07/17/23 07/17/23 12:40 Patient Tobacco Use Status Never used Tobacco 07/17/23 12:37 e-Cigarette/Vaping Use Never Used 07/17/23 12:37 PHQ-9: PHQ-9 Score PHQ-9: Total score 0 07/17/23 12:42 Depression Screening Interpretation: Negative Thrive Assessment: Date of Thrive Assessment Date Thrive assessed 07/17/23 07/17/23 12:42 Const General: no acute distress HENMT Head: Yes normal to inspection Face and sinus: Yes normal facial exam Eyes General: appearance normal, both eyes and all related structures Neck Neck: Yes no lymphadenopathy and Yes supple Resp Effort & Inspection: normal respiratory effort Auscultation: clear to auscultation bilaterally Cardio Rhythm: regular rhythm Heart sounds: S1 normal heart sound present and S2 normal heart sound present GI Inspection: Yes normal to inspection Palpation (GI): Soft to palpation Percussion: Yes normal to percussion Auscultation: normal bowel sounds Assessment and Plan Assessment & Plan (1) Vertigo: Code(s): R42 - Dizziness and giddiness Plan: For recurrent positional vertigo patient will be referred for vestibular therapy and meclizine p.r.n. as prescribed (2) Hypertension: Code(s): I10 - Essential (primary) hypertension Plan: Add olmesartan 5 mg to current medications. Check BMP in 1 week follow-up in 2 months (3) DM type 2 (diabetes mellitus, type 2): Comment: Metformin caused stomach Code(s): E11.9 - Type 2 diabetes mellitus without complications Plan: A1c is down to 7.0, ADA diet increase physical activity continue medications discussed with the patient (4) Hyperlipemia: Code(s): E78.5 - Hyperlipidemia, unspecified Plan: Continue statin Orders: Orders PT Evaluation and Treatment Today R42 - Dizziness and giddiness Basic Metabolic Panel 1 Week I10 - Essential (primary) hypertension TSH reflex Free T4 1 Week I10 - Essential (primary) hypertension Medications: New meclizine 25 mg PO BID PRN 60 tabs 1RF dizziness olmesartan 5 mg PO DAILY 90 tabs 0RF Discontinued hydrocortisone 2.5% Discontinued Reason: Doctor's Order 1 appl topical BID-TID PRN 28.35 grams 1RF skin irritation betamethasone dipropionate 0.05% Discontinued Reason: Doctor's Order 1 appl topical BID PRN 80 grams 2RF skin irritation famotidine (Pepcid) Discontinued Reason: Doctor's Order 40 mg PO BEDTIME 30 tabs 0RF loratadine Discontinued Reason: Doctor's Order 10 mg PO DAILY 90 tabs 2RF triamcinolone acetonide 0.1% Discontinued Reason: Doctor's Order 1 appl topical DAILY 80 grams 0RF omeprazole Discontinued Reason: Doctor's Order 20 mg PO DAILY 30 caps 5RF Coding Level of Care Code Est Pt Level 4 (46121) Diagnoses Vertigo R42 Hypertension I10 DM type 2 (diabetes mellitus, type 2) E11.9 Hyperlipemia E78.5
== END 2023-07-17 13:41 | disposition home or self-care (01) ==
PROVIDERS: PCP Internal Medicine; Visit Provider Internal Medicine
DX: R42 Dizziness and giddiness (principal); I10 Essential (primary) hypertension; E11.69 Type 2 diabetes mellitus with other specified complication; E78.5 Hyperlipidemia, unspecified
CPT/HCPCS: 99214

== ENCOUNTER 2023-07-26 14:50 | Outpatient (AMB) | payer MEDICARE, SELFPAY ==
[2023-07-26 15:00] VITALS: BMI 29.0
--- NOTE | 2023-07-26 15:00 | A.OFFVIS_ITS ---
Vital Signs 07/26/23 15:00 Height 5 ft 3 in Weight 164 lb BMI 29.0 Intake Visit Reasons: 2 week follow up Right GSV RFA 07/13/2023 Intake Note: 2 week follow up Right GSV RFA 07/13/23, Pt still has large rope like VV that are now hard. She also has some blotchiness on her Right LE, states she is seeing an consumer insights specialist soon. Left LE is doing okay, does have some large VV on her left leg as well. Pt states she is not taking any medication right now due to upcoming injection. Director Business Management Required: No Accompanied by: Daughter Allergies hydrochlorothiazide Allergy (Intermediate, Verified 07/26/23 15:07) Nausea triamterene Allergy (Intermediate, Verified 07/26/23 15:07) nausea clarithromycin [From Biaxin] Allergy (Unknown, Verified 07/26/23 15:07) unknown doxycycline Allergy (Unknown, Verified 07/26/23 15:07) unknown alendronate sodium Adverse Reaction (Intermediate, Verified 07/26/23 15:07) Dizziness lisinopril Adverse Reaction (Intermediate, Verified 07/26/23 15:07) cough losartan Adverse Reaction (Intermediate, Verified 07/26/23 15:07) Fatigued dapagliflozin [From Farxiga] Adverse Reaction (Verified 07/26/23 15:07) severe Chest Pain HPI HPI 2 week follow up Right GSV RFA 07/13/2023: Details: Very pleasant 69-year-old female presents for follow-up evaluation status post right great saphenous vein radiofrequency ablation. Reports that she is doing fairly well from the procedure. Overall swelling and discomfort have decreased. The main issue right now is that she has allergies in a skin condition. She has developed a rash on the lateral aspect of her thigh. She now presents to us for postprocedure follow-up. Of note postprocedure ultrasound was negative for DVT and was within 0.7 cm of the junction. [facility] Medical History Skin lesion Colonoscopy refused Chest pain Urinary incontinence Dizziness Annual physical exam Urinary incontinence DM type 2 (diabetes mellitus, type 2) Pruritus Carpal tunnel syndrome on both sides Hyperglycemia Hyperlipemia Hypertension HSV (herpes simplex virus) infection HPV (human papilloma virus) infection Surgical History Hx of unilateral oophorectomy Family History Father No problems noted. Mother No problems noted. Social History Housing: House Alcohol intake: never Patient Tobacco Use Status: Never used Tobacco e-Cigarette/Vaping Use: Never Used Second Hand Smoke Exposure: No service: No Current occupational status: employed Current occupational exposures/hazards: No Sexual orientation: Straight/Heterosexual Gender identity: Female Cognitive needs: No Hearing needs: No Vision needs: Yes Female Reproductive History Menstrual Age of Menarche: 14 Review of Systems Const Reports as per HPI ENT Reports no additional complaints Card Denies chest pain, Denies chest pain at rest and Denies chest pain with activity Resp Denies chest congestion and Denies cough GI Reports no additional complaints Musc Details: pain over varicosities, aching of lower extremities, swelling, cramping, heaviness and tiredness, itching Denies abnormal gait Skin/Breast Reports pruritus and Denies wounds Neuro Reports no additional complaints and Denies abnormal gait Psych Denies no additional complaints Physical Exam Vital Signs: BMI result Body Mass Index 29.0 Const General: cooperative, healthy appearing and comfortable Orientation/consciousness: oriented to person, oriented to place and oriented to time Neck Carotids: no bruits Chest Chest palpation & inspection: normal inspection of the chest and normal palpation of entire chest wall Resp Effort & Inspection: normal respiratory effort and able to speak in complete sentences Cardio Rate: regular rate Heart sounds: S1 normal heart sound present and S2 normal heart sound present Peripheral pulses: Peripheral pulses 2+ throughout GI Inspection: Yes normal to inspection Skin Other: +2 edema, large rope-like varicosities greater than 4 mm right calf and thigh CEAP Classification C4 - skin color changes Ep - Etiology Primary As - superficial veins P - reflux General skin exam: dry skin Neuro General: oriented to person, oriented to place and oriented to time Extrem Right lower extremity: full ROM, normal capillary refill and edema Left lower extremity: full ROM, normal capillary refill and edema Psych Mental Status: mental status grossly normal Assessment & Plan Assessment & Plan (1) Varicose veins of right lower extremity with inflammation: Comment: 07/13/2023 - ablation of right great and accessory saphenous vein Code(s): I83.11 - Varicose veins of right lower extremity with inflammation Category: Medical Plan: In short patient has done well with the ablation. She has rather large varicosities which are source of pain and discomfort for her. I would like her dermatitis to resolve 1st. She does have an allergy Dr. Follow-up within the next week or so. I will see her back in approximately 3 months time. She will require right leg operative microphlebectomy and may possibly schedule at that time. Thank you for allowing us to assist in her care. If there are questions or concerns please do not hesitate to contact us. Coding Level of Care Code Est Pt Level 4 (45156) Diagnoses Varicose veins of right lower extremity with inflammation I83.11
== END 2023-07-26 15:19 | disposition home or self-care (01) ==
PROVIDERS: PCP Internal Medicine; Visit Provider Surgery Vascular Surgery
DX: I83.11 Varicose veins of right lower extremity with inflammation (principal)
CPT/HCPCS: 99213

== ENCOUNTER → 2023-07-26 14:50 | Outpatient (BNVA) | payer MEDICARE, SELFPAY | PROVIDERS: PCP Internal Medicine; Visit Provider Surgery Vascular Surgery | DX: I83.11 Varicose veins of right lower extremity with inflammation (principal) | CPT/HCPCS: 99212 ==

== ENCOUNTER 2023-07-28 07:57 | Outpatient (REF) | payer MEDICARE, SELFPAY ==
[2023-07-28 12:18] LABS: Anion Gap 14 (12-20); Blood Urea Nitrogen 19 mg/dL (9-16); Calcium 9.5 mg/dL (8.4-10.2); Carbon Dioxide 27 mmol/L (22-29); Chloride 107 mmol/L (96-108); Estimated Glomerular Filt Rate > 60; Glucose Random 178 mg/dL (60-115); Potassium 3.9 mmol/L (3.3-5.1); Sodium 144 mmol/L (135-145)
[2023-07-28 12:22] LABS: TSH reflex Free T4 1.29 uIU/mL (0.32-4.0)
== END 2023-07-28 07:58 | disposition home or self-care (01) ==
LOC: HO.HMGCLDS 07:57
PROVIDERS: PCP Internal Medicine; Visit Provider Internal Medicine
DX: I10 Essential (primary) hypertension (principal)
CPT/HCPCS: 36415; 80048; 84443

== ENCOUNTER 2023-09-20 14:00 | Outpatient (AMB) | payer MEDICARE, SELFPAY ==
--- NOTE | 2023-09-20 14:07 | MHC.PC.OV ---
Vital Signs 09/20/23 14:52 Height 5 ft 3 in Weight 174 lb 8 oz BMI 30.9 BP 139/88 Blood Pressure Location Rt brachial Position Standing Pulse 68 Pulse Source Pulse Oximeter Pulse Oximetry (%) 95 Oxygen Delivery Method Room Air Intake Visit Reasons: 2M f/u - see comments Allergies hydrochlorothiazide Allergy (Intermediate, Verified 09/20/23 14:08) Nausea triamterene Allergy (Intermediate, Verified 09/20/23 14:08) nausea clarithromycin [From Biaxin] Allergy (Unknown, Verified 09/20/23 14:08) unknown doxycycline Allergy (Unknown, Verified 09/20/23 14:08) unknown alendronate sodium Adverse Reaction (Intermediate, Verified 09/20/23 14:08) Dizziness lisinopril Adverse Reaction (Intermediate, Verified 09/20/23 14:08) cough losartan Adverse Reaction (Intermediate, Verified 09/20/23 14:08) Fatigued dapagliflozin [From Farxiga] Adverse Reaction (Verified 09/20/23 14:08) severe Chest Pain Medication List - Last Reconciled 09/20/23 by Kimberlyn Noland MD amlodipine 5 mg PO DAILY ascorbic acid (vitamin C) (Vitamin C) 50 mg PO DAILY atorvastatin 40 mg PO DAILY blood sugar diagnostic ([employer] Verio test strips) Test once per day blood-glucose meter ([employer] Verio Flex Meter) Use daily as directed cholecalciferol (vitamin D3) (Vitamin D3) 25 mcg PO DAILY dupilumab (Dupixent) 300 mg subcut Q2W glipizide 5 mg PO BID lancets ([employer] Delica Plus Lancet) Test blood sugar once a day meclizine 25 mg PO BID PRN metoprolol succinate ER 100 mg PO DAILY olmesartan 5 mg PO DAILY omega-3 fatty acids 1 cap PO DAILY solifenacin 10 mg PO DAILY 90 days Tobacco use date assessed: 09/20/23 Fall risk assessment: No Falls in past year Last assessed Fall Risk: 09/20/23 Dental Screening Dental Screen Date: 09/20/23 HPI 2M f/u - see comments HPI Details Pt presents for f/u HTN, hyperlipid, DM 2. Pt was taking Olmesartan 10 mg instead of 5 mg and ran out 3 weeks ago. Patient denies any side effects from olmesartan. She was told by broommaker that she needs to have blood pressure well controlled before allergy testing for chronic recurrent rash. FORMERLY [facility], LATER [facility] Medical History Skin lesion Colonoscopy refused Chest pain Urinary incontinence Dizziness Annual physical exam Urinary incontinence DM type 2 (diabetes mellitus, type 2) Pruritus Carpal tunnel syndrome on both sides Hyperglycemia Hyperlipemia Hypertension HSV (herpes simplex virus) infection HPV (human papilloma virus) infection Surgical History Hx of unilateral oophorectomy Family History Father No problems noted. Mother No problems noted. Social History Housing: House Alcohol intake: never Patient Tobacco Use Status: Never used Tobacco e-Cigarette/Vaping Use: Never Used Second Hand Smoke Exposure: No service: No Current occupational status: employed Current occupational exposures/hazards: No Sexual orientation: Straight/Heterosexual Gender identity: Female Cognitive needs: No Hearing needs: No Vision needs: Yes Female Reproductive History Menstrual Age of Menarche: 14 Questionnaire Thrive Questionnaire Date Thrive assessed: 07/17/23 AUDIT C Alcohol Use Questionnaire (AUDIT-C) 1. How often do you have a drink containing alcohol?: Never 3. How often do you have six or more drinks on one occasion?: Never Total Score: 0 Score Reviewed/Action Taken: Yes SHILPI-7 AMB Questionnaire SHILPI-7 Date SHILPI - 7 assessed: 07/17/23 Source: Developed by Drs. Aniket Palencia, Radha Alston, Homer Palmer and colleagues, with an educational heather from [employer]. Review of Systems Const All systems reviewed & are unremarkable except as noted in HPI and below Reports no additional complaints Eyes Reports no additional complaints ENT Reports no additional complaints Card Reports no additional complaints Resp Reports no additional complaints GI Reports no additional complaints Reports no additional complaints Musc Reports no additional complaints Physical exam (Primary Care) Vital Signs: Last Vital Signs Pulse 68 09/20/23 14:52 Pulse Ox 95 09/20/23 14:52 Oxygen Delivery Method Room Air 09/20/23 14:52 BMI result Body Mass Index 30.9 Tobacco/Smoking Status: Tobacco use Status Tobacco use date assessed 09/20/23 09/20/23 14:08 Patient Tobacco Use Status Never used Tobacco 09/20/23 14:08 e-Cigarette/Vaping Use Never Used 09/20/23 14:08 Thrive Assessment: Date of Thrive Assessment Date Thrive assessed 07/17/23 09/20/23 14:08 Const General: no acute distress HENMT Head: Yes normal to inspection Mouth: Normal oral and palatal mucosa present Throat: Yes posterior oropharynx normal Eyes General: appearance normal, both eyes and all related structures Neck Neck: Yes no lymphadenopathy and Yes supple Resp Effort & Inspection: normal respiratory effort Auscultation: clear to auscultation bilaterally Cardio Rhythm: regular rhythm Heart sounds: S1 normal heart sound present and S2 normal heart sound present GI Inspection: Yes normal to inspection Palpation (GI): Soft to palpation Percussion: Yes normal to percussion Auscultation: normal bowel sounds Assessment and Plan Assessment & Plan (1) Hypertension: Code(s): I10 - Essential (primary) hypertension Plan: Increase olmesartan to 20 mg a day continue amlodipine and metoprolol. Patient will return for blood pressure check and BMP in 2 weeks. Follow-up in 2 months with a fasting labs before (2) DM type 2 (diabetes mellitus, type 2): Comment: Metformin caused stomach Code(s): E11.9 - Type 2 diabetes mellitus without complications Plan: Continue current medication ADA diet increase physical activity, return in 2 months for blood work including A1c (3) Hyperlipemia: Code(s): E78.5 - Hyperlipidemia, unspecified Plan: Continue statin Orders: Orders Basic Metabolic Panel 2 Weeks I10 - Essential (primary) hypertension Complete Blood Count Auto Diff 2 Months E11.9 - Type 2 diabetes mellitus without complications, I10 - Essential (primary) hypertension Lipid Panel 2 Months E11.9 - Type 2 diabetes mellitus without complications, I10 - Essential (primary) hypertension Microalbumin, Random (w Creat) 2 Months E11.9 - Type 2 diabetes mellitus without complications, I10 - Essential (primary) hypertension Comprehensive [place]. Panel Fast 2 Months E11.9 - Type 2 diabetes mellitus without complications, I10 - Essential (primary) hypertension Hemoglobin A1c 2 Months E11.9 - Type 2 diabetes mellitus without complications, I10 - Essential (primary) hypertension Medications: New olmesartan 20 mg PO DAILY 90 tabs 1RF betamethasone dipropionate 0.05% 1 appl topical DAILY PRN 15 grams 1RF skin irritation Discontinued olmesartan Discontinued Reason: Duplicate 5 mg PO DAILY 90 tabs 0RF Coding Level of Care Code Est Pt Level 4 (48541) Diagnoses Hypertension I10 DM type 2 (diabetes mellitus, type 2) E11.9 Hyperlipemia E78.5
[2023-09-20 14:52] VITALS: BP 139/88; PULSE 68; O2SAT 95; BMI 30.9
== END 2023-09-20 15:19 | disposition home or self-care (01) ==
LOC: HO.HMGC 14:00
PROVIDERS: PCP Internal Medicine; Visit Provider Internal Medicine
DX: I10 Essential (primary) hypertension (principal); E11.9 Type 2 diabetes mellitus without complications; E78.5 Hyperlipidemia, unspecified
CPT/HCPCS: 99214

== ENCOUNTER 2023-10-16 15:04 | Outpatient (REF) | payer MEDICARE, SELFPAY ==
[2023-10-16 16:02] LABS: MANUAL DIFF FLAG NO
[2023-10-16 16:12] LABS: Basophils Percent Auto 0.4 % (0-2); Eosinophils Absolute Auto 0.3 X10*3/uL (0.0-0.4); Eosinophils Percent Auto 3.8 % (0-4); Hematocrit 46.1 % (37.0-47.0); Hemoglobin 15.1 g/dl (12.0-16.0); Imm Gran Abs Auto 0.03 X10*3/uL (0.00-0.03); Imm Gran Pct Auto 0.4 % (0.0-0.4); Lymphocytes Absolute Auto 2.4 X10*3/uL (1.2-4.9); Lymphocytes Percent Auto 30.6 % (20-40); Mean Corpuscular HGB Conc 32.8 g/dl (31.0-35.0); Mean Corpuscular Hemoglobin 29.5 pg (27.0-33.0); Mean Corpuscular Volume 90.2 fL (80.0-98.0); Monocytes Absolute Auto 0.6 X10*3/uL (0.1-1.2); Monocytes Percent Auto 7.3 % (2-11); Neutrophils Absolute Auto 4.6 x10*3/uL (2.0-8.3); Neutrophils Percent Auto 57.5 % (45-73); Platelet Count 209 X10*3/uL (160-400); Red Blood Count 5.11 X10*6/uL (4.20-5.50); Red Cell Distribution Width 12.1 % (11.0-16.0); White Blood Count 7.9 X10*3/uL (4.8-10.8)
[2023-10-16 16:27] LABS: Estimated Average Glucose 169 mg/dL; Hemoglobin A1c % 7.5 % (<6.0)
[2023-10-16 16:36] LABS: Alanine Aminotransferase 59 U/L (0-31); Albumin Level 4.3 g/dL (3.5-5.0); Alkaline Phosphatase 61 U/L (39-117); Anion Gap 15 (12-20); Aspartate Amino Transferase 32 U/L (5-31); Bilirubin Total 0.6 mg/dL (0.0-1.0); Blood Urea Nitrogen 18 mg/dL (9-16); Calcium 9.7 mg/dL (8.4-10.2); Carbon Dioxide 25 mmol/L (22-29); Chloride 105 mmol/L (96-108); Cholesterol 213 mg/dL (<200); Estimated Glomerular Filt Rate > 60; Glucose Fasting 139 mg/dL (60-99); Glucose Random 139 mg/dL (60-115); HDL Cholesterol 59 mg/dL (>40); LDL Cholesterol Calculated 120 mg/dL (<100); Potassium 3.9 mmol/L (3.3-5.1); Sodium 141 mmol/L (135-145); Total Protein 7.6 g/dL (6.5-8.0); Triglycerides 173 mg/dL (<150)
[2023-10-16 16:46] LABS: Microalbumin Urine < 5.0 mg/L
== END 2023-10-16 15:05 | disposition home or self-care (01) ==
LOC: HO.HMGCLDS 15:04
PROVIDERS: PCP Internal Medicine; Visit Provider Internal Medicine
DX: E11.9 Type 2 diabetes mellitus without complications (principal); I10 Essential (primary) hypertension
CPT/HCPCS: 36415; 80048; 80053; 80061; 82570; 83036; 85025

== ENCOUNTER 2023-10-19 15:03 | Outpatient (REF) | payer MEDICARE, SELFPAY ==
--- NOTE | ~2023-10-19 | US_ITS ---
EXAMINATION: US RETROPERITONEAL COMPLETE (RENAL) CLINICAL INFORMATION: Cyst of kidney, acquired. Urinary incontinence. COMPARISON: Ultrasound abdomen complete 01/09/2022. CT abdomen and pelvis 12/08/2019. TECHNIQUE: Real-time imaging of the kidneys and bladder. FINDINGS: RIGHT KIDNEY: 9.3 x 4.4 x 6.3 cm (SAG x AP x TRV). No hydronephrosis. No renal calculi. Renal cortical thickness is normal. Limited visualization. A 0.8 cm lower pole cyst with benign features. There is no indication for follow-up imaging. LEFT KIDNEY: 10.9 x 4.6 x 5.6 cm (SAG x AP x TRV). No hydronephrosis. No renal calculi. Renal cortical thickness is normal. Limited visualization. A 1.2 cm cyst with benign features. There is no indication for follow-up imaging. BLADDER: Partially distended. Bilateral ureteral jets are demonstrated. Prevoid bladder volume is 129 mL. Postvoid bladder volume is 51.3 mL. US/US retroperitoneal comp IMPRESSION: 1. No hydronephrosis. No renal calculi. 2. Postvoid bladder volume is 51.3 mL.
== END 2023-10-19 15:04 | disposition home or self-care (01) ==
LOC: HO.HMGCX 15:03
PROVIDERS: PCP Internal Medicine; Visit Provider Nurse Practitioner Family
DX: N28.1 Cyst of kidney, acquired (principal); R32 Unspecified urinary incontinence
CPT/HCPCS: 76770

== ENCOUNTER 2023-10-29 14:43 | Outpatient (AMB) | payer MEDICARE, SELFPAY ==
--- NOTE | 2023-10-29 15:00 | A.OFFVIS_ITS ---
Intake Visit Reasons: 1y/PVR(set) Intake Note: Patient is present for follow up urinary incontinence Urology Medication: solifenacin Blood Thinner: none PVR: 0ml's [employer] [facility] Required: Yes Accompanied by: Daughter Allergies hydrochlorothiazide Allergy (Intermediate, Verified 10/29/23 20:15) Nausea triamterene Allergy (Intermediate, Verified 10/29/23 20:15) nausea clarithromycin [From Biaxin] Allergy (Unknown, Verified 10/29/23 20:15) unknown doxycycline Allergy (Unknown, Verified 10/29/23 20:15) unknown alendronate sodium Adverse Reaction (Intermediate, Verified 10/29/23 20:15) Dizziness lisinopril Adverse Reaction (Intermediate, Verified 10/29/23 20:15) cough losartan Adverse Reaction (Intermediate, Verified 10/29/23 20:15) Fatigued dapagliflozin [From Farxiga] Adverse Reaction (Verified 10/29/23 20:15) severe Chest Pain Medication List - Last Reconciled 10/29/23 by CAITLIN Mathew- amlodipine 5 mg PO DAILY ascorbic acid (vitamin C) (Vitamin C) 50 mg PO DAILY atorvastatin 40 mg PO DAILY betamethasone dipropionate 0.05% 1 appl topical DAILY PRN blood sugar diagnostic (DNA [employer] Verio test strips) Test once per day blood-glucose meter (OneTouch Verio Flex Meter) Use daily as directed cholecalciferol (vitamin D3) (Vitamin D3) 25 mcg PO DAILY dupilumab (Dupixent) 300 mg subcut Q2W glipizide 5 mg PO BID lancets (OneTouch Delica Plus Lancet) Test blood sugar once a day meclizine 25 mg PO BID PRN metoprolol succinate ER 100 mg PO DAILY olmesartan 20 mg PO DAILY omega-3 fatty acids 1 cap PO DAILY vibegron (Gemtesa) 75 mg PO DAILY 30 days HPI Comments Details: Sona is a pleasant 78 year old greenlandic speaking patient of Dr. Noland who is accompanied by her daughter at todays office visit. She has a past medical hi story of carpal tunnel, type 2 diabetes, HPV, herpes simplex virus, hyperlipidemia, hypertension, osteoporosis, and urinary incontinence. She present to the office today for a follow up urinary incontinence. When asked reports to be doing well. She reports feeling since her last office visit here approximately 1 year ago she continues with ongoing urinary frequency, urinary urgency, and episodes of incontinence despite 10 mg of VESIcare daily. She reports having followed up with her PCP for ongoing issues she has been experiencing with chest pressure and has undergone cardiac workup that has been essentially normal. It appears retroperitoneal ultrasound was ordered and performed. These results remain pending. Discussed at length potential causes for lower urinary tract symptoms patient is experiencing. Discussed importance of management and diabetes for improvement lower urinary tract symptoms as well as overall health and well-being. She otherwise denies hematuria, dysuria, foul-smelling urine, changes to urinary stream, flank pain, fever, and or chills. 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 PVR 0 mL. She otherwise offers no issues or concerns at this time. [facility] Medical History Skin lesion Colonoscopy refused Chest pain Urinary incontinence Dizziness Annual physical exam Urinary incontinence DM type 2 (diabetes mellitus, type 2) Pruritus Carpal tunnel syndrome on both sides Hyperglycemia Hyperlipemia Hypertension HSV (herpes simplex virus) infection HPV (human papilloma virus) infection Surgical History Hx of unilateral oophorectomy Family History Father No problems noted. Mother No problems noted. Social History Housing: House Alcohol intake: never Patient Tobacco Use Status: Never used Tobacco e-Cigarette/Vaping Use: Never Used Second Hand Smoke Exposure: No service: No Current occupational status: employed Current occupational exposures/hazards: No Sexual orientation: Straight/Heterosexual Gender identity: Female Cognitive needs: No Hearing needs: No Vision needs: Yes Female Reproductive History Menstrual Age of Menarche: 14 Review of Systems Const Reports as per HPI Eyes Reports no additional complaints ENT Reports no additional complaints Card Reports as per HPI Resp Reports no additional complaints GI Reports as per HPI Reports as per HPI Musc Reports as per HPI Skin/Breast Reports as per HPI Neuro Reports as per HPI Endo Reports as per HPI Physical Exam Const General: cooperative, healthy appearing, comfortable, no acute distress, well developed, alert and awake Orientation/consciousness: patient oriented x3 Limitations: no limitations HEENT Head: Yes normal to inspection, Yes normocephalic and Yes atraumatic Ears: hearing grossly normal bilaterally Eyes General: appearance normal, both eyes and all related structures Neck Neck: Yes normal visual inspection and Yes trachea midline Chest Chest palpation & inspection: normal inspection of the chest Resp Effort & Inspection: normal respiratory effort and able to speak in complete sentences Cardio Rate: regular rate GI Inspection: Yes normal to inspection General: Yes no CVA tenderness Back/Spine/Pelvis Back: no CVA tenderness Skin General skin exam: no rashes or lesions noted Neuro General: patient oriented x3 Extrem General: Yes normal to inspection Psych Appearance: grossly normal and well kempt Mental Status: mental status grossly normal Speech and movement: Normal speech and movement present and Clear speech present Affect: normal affect Attitude: cooperative Thought process: Normal thought process present Thought content: Normal thought content present Insight: Fair insight present (Psych) Judgement: Fair judgement present (Psych) Office Procedures Post Void Residual Post Residual Void Post Void Residual (PVR): 0 26611-Ilsk Void Residual by ultrasound Results AMB Urinalysis, Automated UA Leukoctes 70 Wilfredo/uL Last Edit by [employer] on 10/29/23 15:11 UA Nitrite Negative Last Edit by [employer] on 10/29/23 15:11 UA Urobilinogen 0.2 mg/dL Last Edit by [employer] on 10/29/23 15:11 UA Protein 0 mg/dL Last Edit by [employer] on 10/29/23 15:11 UA pH 6.0 Last Edit by [employer] on 10/29/23 15:11 UA Blood 0 Grover/uL Last Edit by [employer] on 10/29/23 15:11 UA Specific Hildebran 1.005 Last Edit by [employer] on 10/29/23 15:11 UA Ketone Negative Last Edit by [employer] on 10/29/23 15:11 UA Bilirubin 0 mg/dL Last Edit by [employer] on 10/29/23 15:11 UA Glucose 0 mg/dL Last Edit by [employer] on 10/29/23 15:11 Results Reviewed Results Reviewed: Laboratory Last Values Urine pH (Auto) 6.0 10/29/23 15:10 Specific Hildebran (Auto) 1.005 10/29/23 15:10 Urine Protein (Auto) 0 mg/dL 10/29/23 15:10 Glucose (UA)(Auto) 0 mg/dL 10/29/23 15:10 Urine Ketones (Auto) Negative 10/29/23 15:10 Urine Blood (Auto) 0 Grover/uL 10/29/23 15:10 Urine Nitrite (Auto) Negative 10/29/23 15:10 Urine Bilirubin (Auto) 0 mg/dL 10/29/23 15:10 Urine Urobilinogen (Auto) 0.2 mg/dL 10/29/23 15:10 Leukocyte Esterase (Auto) 70 Wilfredo/uL 10/29/23 15:10 Assessment & Plan Assessment & Plan (1) Urinary incontinence: Code(s): R32 - Unspecified urinary incontinence Category: Medical (2) Renal cyst: Code(s): N28.1 - Cyst of kidney, acquired Category: Medical Plan In office urinalysis results reviewed with the patient today; as noted above. PVR 0 mL. Stop VESIcare. Discussed at length potential causes for lower urinary tract symptoms patient is experiencing. Start Gemtesa as discussed and prescribed. Discussed possible near future in office cystoscopy and or urodynamics for further assessment evaluation. Discussed, educated, and stressed the importance of managing diabetes for improvement in lower urinary tract symptoms as well as overall health and well- being. Discussed bladder triggers/irritants. Discussed importance of timed/scheduled voiding Follow-up in 3 months with PVR and imaging to be completed prior; or sooner with any issues, concerns, and or questions. Orders: Orders AMB Urinalysis Automated Today Z13.9 - Encounter for screening, unspecified AMB Post Void Residual by ultrasound Today R32 - Unspecified urinary incontinence Medications: New vibegron (Gemtesa) 75 mg PO DAILY 30 tabs 0RF 30 days N32.81 - Overactive bladder Discontinued solifenacin Discontinued Reason: Doctor's Order 10 mg PO DAILY 90 tabs 4RF 90 days Patient Instructions: The patient had an opportunity to ask questions regarding the treatment plan. All questions were answered. Physical exam, labs, and imaging were discussed and reviewed in detail. As well as risks, benefits, and discussion of treatment c hoices. No major barriers to understanding were identified. The patient expressed understanding and agreement with the above treatment plan. The patient was made aware they should contact our office by phone for worsening of their current condition, the appearance of new symptoms, or with any questions or concerns. Compliance is encouraged with any medications and follow up testing that is ordered. It is a privilege to be allowed the opportunity to participate in? your urological care.? Again, if you have any questions or concerns If you have any questions or concerns please do not hesitate to contact me. The office is [phone]. This note is constructed using voice recognition software. While every effort has been made to ensure accuracy mathematical engineering technician errors may have been included. Yours sincerely, ROBBIN Mathew Coding Level of Care Code Est Pt Level 4 (36544) Complex EM visit Add On G2211 Diagnoses Urinary incontinence R32 Renal cyst N28.1 CPT Codes Post Residual Void - PVR CPT Code: 20867-Bbdj Void Residual by ultrasound ([id number])
== END 2023-10-29 15:41 | disposition home or self-care (01) ==
PROVIDERS: PCP Internal Medicine; Visit Provider Nurse Practitioner Family
DX: R32 Unspecified urinary incontinence (principal); N28.1 Cyst of kidney, acquired; Z13.9 Encounter for screening, unspecified
CPT/HCPCS: 99214; G2211

== ENCOUNTER → 2023-10-29 14:43 | Outpatient (BNVA) | payer MEDICARE, SELFPAY | PROVIDERS: PCP Internal Medicine; Visit Provider Nurse Practitioner Family | DX: R32 Unspecified urinary incontinence (principal); N28.1 Cyst of kidney, acquired | CPT/HCPCS: 51798; 81003; 99212 ==

== ENCOUNTER 2023-11-19 13:42 | Outpatient (AMB) | payer MEDICARE, SELFPAY ==
--- NOTE | 2023-11-19 13:54 | A.OFFPC_ITS ---
Vital Signs 11/19/23 13:58 Height 5 ft 3 in Weight 182 lb BMI 32.2 BP 139/88 Blood Pressure Location Rt brachial Position Sitting Pulse 84 Pulse Source Pulse Oximeter Pulse Oximetry (%) 95 Oxygen Delivery Method Room Air Intake Visit Reasons: 2M f/u - see comments Intake Note: Pt is here today for 2 months follow up visit. Allergies hydrochlorothiazide Allergy (Intermediate, Verified 11/19/23 14:00) Nausea triamterene Allergy (Intermediate, Verified 11/19/23 14:00) nausea clarithromycin [From Biaxin] Allergy (Unknown, Verified 11/19/23 14:00) unknown doxycycline Allergy (Unknown, Verified 11/19/23 14:00) unknown alendronate sodium Adverse Reaction (Intermediate, Verified 11/19/23 14:00) Dizziness lisinopril Adverse Reaction (Intermediate, Verified 11/19/23 14:00) cough losartan Adverse Reaction (Intermediate, Verified 11/19/23 14:00) Fatigued dapagliflozin [From Farxiga] Adverse Reaction (Verified 11/19/23 14:00) severe Chest Pain Medication List - Last Reconciled 11/19/23 by Kimberlyn Noland MD amlodipine 5 mg PO DAILY ascorbic acid (vitamin C) (Vitamin C) 50 mg PO DAILY atorvastatin 40 mg PO DAILY betamethasone dipropionate 0.05% 1 appl topical DAILY PRN blood sugar diagnostic ([employer] Verio test strips) Test once per day blood-glucose meter ([employer] Verio Flex Meter) Use daily as directed cholecalciferol (vitamin D3) (Vitamin D3) 25 mcg PO DAILY dupilumab (Dupixent) 300 mg subcut Q2W glipizide 5 mg PO BID lancets ([employer] Delica Plus Lancet) Test blood sugar once a day meclizine 25 mg PO BID PRN metoprolol succinate ER 100 mg PO DAILY olmesartan 20 mg PO DAILY omega-3 fatty acids 1 cap PO DAILY vibegron (Gemtesa) 75 mg PO DAILY 30 days Tobacco use date assessed: 11/19/23 Fall risk assessment: No Falls in past year Dental Screening Dental Screen Date: 09/20/23 HPI 2M f/u - see comments HPI Details Pt presents complains of mid chest pain, sharp lasting 3-4 days not positional with some shortness or breath but no pleurisy fever chills cough, heartburn, nausea vomiting full regurgitation. Patient has not been taking olmesartan for hypertension and reports high blood pressure readings and occasionally feeling off balance when standing up. She denies weakness or numbness in extremities, change in vision. [facility] Medical History Skin lesion Colonoscopy refused Chest pain Urinary incontinence Dizziness Annual physical exam Urinary incontinence DM type 2 (diabetes mellitus, type 2) Pruritus Carpal tunnel syndrome on both sides Hyperglycemia Hyperlipemia Hypertension HSV (herpes simplex virus) infection HPV (human papilloma virus) infection Surgical History Hx of unilateral oophorectomy Family History Father No problems noted. Mother No problems noted. Social History Housing: House Alcohol intake: never Patient Tobacco Use Status: Never used Tobacco e-Cigarette/Vaping Use: Never Used Second Hand Smoke Exposure: No service: No Current occupational status: employed Current occupational exposures/hazards: No Sexual orientation: Straight/Heterosexual Gender identity: Female Cognitive needs: No Hearing needs: No Vision needs: Yes Female Reproductive History Menstrual Age of Menarche: 14 Questionnaire Thrive Questionnaire Date Thrive assessed: 07/17/23 I am a: Patient What is your living situation today?: I have a steady place to live Within the past 12 months, did the food you bought not last and you didn't have the money to get more?: Never true Within the past 12 months, did you worry whether your food would run out before you got money to buy more?: Never true Do you have trouble paying for medicines?: No Do you have trouble getting transportation to medical appointments?: No Do you have trouble paying your heating and electricity bill?: No Do you have trouble taking care of your child, family member or friend?: No Do you have trouble with day-to-day activities such as bathing, preparing meals, shopping, managing finances, etc.?: No Are you currently unemployed and looking for a job?: No Are you interested in more education?: No Please select the resources that you would like help with: None Currently or been in a relationship where the following occur: No concerns reported THRIVE Score: 0 AUDIT C Alcohol Use Questionnaire (AUDIT-C) 1. How often do you have a drink containing alcohol?: Never Total Score: 0 SHILPI-7 AMB Questionnaire SHILPI-7 Date SHILPI - 7 assessed: 07/17/23 Feeling nervous, anxious, or on edge: 0 = Not at all Not being able to stop or control worryin = Not at all Worrying too much about different things: 0 = Not at all Trouble relaxin = Not at all Being so restless that it is hard to sit still: 0 = Not at all Becoming easily annoyed or irritable: 0 = Not at all Feeling afraid as if something awful might happen: 0 = Not at all Total SHILPI-7 score (0-4 normal; 5-9 mild; 10-14 moderate; 15-21 severe): 0 Source: Developed by Drs. Aniket Palencia, Radha Alston, Homer Palmer and colleagues, with an educational heather from [employer]. Review of Systems Const All systems reviewed & are unremarkable except as noted in HPI and below Eyes Reports no additional complaints ENT Reports no additional complaints Card Reports no additional complaints Resp Reports no additional complaints GI Reports no additional complaints Physical exam (Primary Care) Vital Signs: Last Vital Signs Pulse 84 11/19/23 13:58 Pulse Ox 95 11/19/23 13:58 Oxygen Delivery Method Room Air 11/19/23 13:58 BMI result Body Mass Index 32.2 Tobacco/Smoking Status: Tobacco use Status Tobacco use date assessed 11/19/23 11/19/23 14:03 Patient Tobacco Use Status Never used Tobacco 11/19/23 13:54 e-Cigarette/Vaping Use Never Used 11/19/23 13:54 Thrive Assessment: Date of Thrive Assessment Date Thrive assessed 07/17/23 11/19/23 13:54 Currently or been in a relationship where the following occur: No concerns reported Const General: no acute distress HENMT Head: Yes normal to inspection Mouth: Normal oral and palatal mucosa present Neck Neck: Yes no lymphadenopathy and Yes supple Chest Chest palpation & inspection: abnormal palpation of chest wall and no localized rib tenderness Resp Effort & Inspection: normal respiratory effort Auscultation: clear to auscultation bilaterally Cardio Rhythm: regular rhythm Heart sounds: S1 normal heart sound present and S2 normal heart sound present GI Inspection: Yes normal to inspection Palpation (GI): Soft to palpation Percussion: Yes normal to percussion Assessment and Plan Assessment & Plan (1) GERD (gastroesophageal reflux disease): Code(s): K21.9 - Gastro-esophageal reflux disease without esophagitis Plan: trial of Omeprazole (2) Chest pain: Code(s): R07.9 - Chest pain, unspecified Plan: Check CT angiogram to rule out PE (3) Hypertension: Code(s): I10 - Essential (primary) hypertension Plan: Restart olmesartan follow-up in 1 month Orders: Orders Blood Urea Nitrogen Today R07.9 - Chest pain, unspecified CT angio chest PE protocol Today R07.9 - Chest pain, unspecified Creatinine Today R07.9 - Chest pain, unspecified Medications: New omeprazole 20 mg PO DAILY 30 caps 2RF Coding Level of Care Code Est Pt Level 4 (91457) Diagnoses GERD (gastroesophageal reflux disease) K21.9 Chest pain R07.9 Hypertension I10
[2023-11-19 13:58] VITALS: BP 139/88; PULSE 84; O2SAT 95; BMI 32.2
== END 2023-11-19 15:07 | disposition home or self-care (01) ==
PROVIDERS: PCP Internal Medicine; Visit Provider Internal Medicine
DX: K21.9 Gastro-esophageal reflux disease without esophagitis (principal); R07.9 Chest pain, unspecified; I10 Essential (primary) hypertension
CPT/HCPCS: 99214

== ENCOUNTER 2023-11-19 15:00 | Outpatient (REF) | payer MEDICARE, SELFPAY ==
[2023-11-19 16:41] LABS: Blood Urea Nitrogen 14 mg/dL (9-16); Estimated Glomerular Filt Rate > 60
== END 2023-11-19 15:01 | disposition home or self-care (01) ==
LOC: HO.HMGCLDS 15:00
PROVIDERS: PCP Internal Medicine; Visit Provider Internal Medicine
DX: R07.9 Chest pain, unspecified (principal)
CPT/HCPCS: 36415; 82565; 84520

== ENCOUNTER 2023-11-21 12:51 | Outpatient (REF) | payer MEDICARE, SELFPAY ==
--- NOTE | ~2023-11-21 | CT_ITS ---
EXAMINATION: CT ANGIOGRAM CHEST, PE STUDY CLINICAL INFORMATION: Chest pain COMPARISON: Chest x-ray April 04, 2020 TECHNIQUE: A noncontrast localizer was performed, followed by the administration of 65 mL Omnipaque [address] of the chest was then performed. Coronal and sagittal reformatted and 3-D technique MIP images of the chest were completed at the CT scanner and reviewed on the PACS workstation. No adverse effects were reported. [This CT examination was performed using dose optimization techniques as appropriate, variously including the following: *Automated exposure control *Adjustment of mA and/or kV according to patient size (this includes techniques or standardized protocols for targeted exams where dose is matched to indication/reason for exam; i.e. extremities or head) *Use of iterative reconstruction technique] DLP: 116 mGy-cm. FINDINGS: VASCULAR: The main pulmonary artery, secondary and tertiary branches of the pulmonary artery are normally opacified with no evidence of pulmonary embolism. No aneurysm of aorta. There are vascular wall calcifications of thoracic aorta. MEDIASTINUM: No mediastinal mass. No significant lymphadenopathy. There is no pericardial effusion. CORONARY ARTERIES: Volume of coronary calcification:Small LUNGS: The lungs are clear. No nodule or infiltrate. Central bronchial airways open. FLUID: There is no pericardial effusion. There is no pleural effusion. AXILLA: No significant lymphadenopathy. UPPER ABDOMEN: Adrenal glands normal. Visualized portions of liver and spleen unremarkable. SKELETAL: No suspicious focal bone finding. CT/CT angio chest PE protocol IMPRESSION: 1. No evidence of pulmonary embolism. 2. No acute abnormality of chest. Electronically signed by: Odin Craig MD 11/21/2023 04:10 PM EDT
[2023-11-21] MEDS: iohexoL 350 MG/ML 100 ML INFUS..BTL 65 ML IV (13:35)
== END 2023-11-21 12:52 | disposition home or self-care (01) ==
LOC: HO.CT 12:51
PROVIDERS: PCP Internal Medicine; Visit Provider Internal Medicine
DX: R07.9 Chest pain, unspecified (principal)
CPT/HCPCS: 71275; Q9967

== ENCOUNTER 2023-12-19 14:13 | Outpatient (REF) | payer MEDICARE, SELFPAY ==
[2023-12-19 14:37] LABS: MANUAL DIFF FLAG NO
[2023-12-19 15:44] LABS: Basophils Percent Auto 0.4 % (0-2); Eosinophils Absolute Auto 0.1 X10*3/uL (0.0-0.4); Eosinophils Percent Auto 1.8 % (0-4); Hemoglobin 15.3 g/dl (12.0-16.0); Imm Gran Abs Auto 0.02 X10*3/uL (0.00-0.03); Imm Gran Pct Auto 0.3 % (0.0-0.4); Lymphocytes Absolute Auto 2.1 X10*3/uL (1.2-4.9); Mean Corpuscular HGB Conc 33.3 g/dl (31.0-35.0); Mean Corpuscular Hemoglobin 30.1 pg (27.0-33.0); Mean Corpuscular Volume 90.6 fL (80.0-98.0); Monocytes Absolute Auto 0.5 X10*3/uL (0.1-1.2); Monocytes Percent Auto 6.6 % (2-11); Neutrophils Absolute Auto 4.1 x10*3/uL (2.0-8.3); Neutrophils Percent Auto 59.9 % (45-73); Platelet Count 210 X10*3/uL (160-400); Red Blood Count 5.08 X10*6/uL (4.20-5.50); Red Cell Distribution Width 12.2 % (11.0-16.0); White Blood Count 6.8 X10*3/uL (4.8-10.8)
[2023-12-19 16:41] LABS: Alanine Aminotransferase 45 U/L (0-31); Albumin Level 4.2 g/dL (3.5-5.0); Alkaline Phosphatase 67 U/L (39-117); Anion Gap 13 (12-20); Aspartate Amino Transferase 38 U/L (5-31); Bilirubin Total 0.7 mg/dL (0.0-1.0); Blood Urea Nitrogen 18 mg/dL (9-16); Calcium 9.5 mg/dL (8.4-10.2); Carbon Dioxide 25 mmol/L (22-29); Chloride 108 mmol/L (96-108); Estimated Glomerular Filt Rate 55; Glucose Random 143 mg/dL (60-115); Potassium 3.8 mmol/L (3.3-5.1); Sodium 142 mmol/L (135-145); Total Protein 7.5 g/dL (6.5-8.0)
[2023-12-19 16:55] LABS: Free T4 (Free Thyroxine) 0.99 ng/dL (0.71-1.85); Thyroid Stimulating Hormone 1.18 uIU/mL (0.32-4.0); Vitamin D 25-OH Total 36.8 ng/mL (>30)
[2023-12-20 14:42] LABS: Immunoglobulin E 6 kU/L (<OR=114)
[2023-12-21 11:14] LABS: Anti Nuclear Antibody Screen NEGATIVE (NEGATIVE)
== END 2023-12-19 14:14 | disposition home or self-care (01) ==
LOC: HO.LAB 14:13
PROVIDERS: Visit Provider Physician Assistant
DX: L29.9 Pruritus, unspecified (principal)
CPT/HCPCS: 36415; 80053; 82306; 82785; 84439; 84443; 85025; 86038

== ENCOUNTER 2024-01-21 13:17 | Outpatient (AMB) | payer MEDICARE, SELFPAY ==
[2024-01-21 13:31] VITALS: BP 139/88; PULSE 104; O2SAT 96; BMI 32.6
--- NOTE | 2024-01-21 13:31 | A.OFFPC_ITS ---
Vital Signs 01/21/24 13:31 Height 5 ft 3 in Weight 184 lb BMI 32.6 BP 139/88 Blood Pressure Location Rt brachial Position Sitting Pulse 104 H Pulse Source Pulse Oximeter Pulse Oximetry (%) 96 Oxygen Delivery Method Room Air Intake Visit Reasons: Diarrhea abdominal pain on and off Intake Note: Pt is here today for a sick visit. Pt c/o diarrhea and abdominal pain for the last 3 months. Allergies hydrochlorothiazide Allergy (Intermediate, Verified 01/21/24 13:41) Nausea triamterene Allergy (Intermediate, Verified 01/21/24 13:41) nausea clarithromycin [From Biaxin] Allergy (Unknown, Verified 01/21/24 13:41) unknown doxycycline Allergy (Unknown, Verified 01/21/24 13:41) unknown alendronate sodium Adverse Reaction (Intermediate, Verified 01/21/24 13:41) Dizziness lisinopril Adverse Reaction (Intermediate, Verified 01/21/24 13:41) cough losartan Adverse Reaction (Intermediate, Verified 01/21/24 13:41) Fatigued dapagliflozin [From Farxiga] Adverse Reaction (Verified 01/21/24 13:41) severe Chest Pain Medication List - Last Reconciled 01/21/24 by Kimberlyn Noland MD amlodipine 5 mg PO DAILY ascorbic acid (vitamin C) (Vitamin C) 50 mg PO DAILY atorvastatin 40 mg PO DAILY betamethasone dipropionate 0.05% 1 appl topical DAILY PRN blood sugar diagnostic ([employer] Verio test strips) Test once per day blood-glucose meter ([employer] Verio Flex Meter) Use daily as directed cholecalciferol (vitamin D3) (Vitamin D3) 25 mcg PO DAILY dupilumab (Dupixent) 300 mg subcut Q2W glipizide 5 mg PO BID lancets ([employer] Delica Plus Lancet) Test blood sugar once a day meclizine 25 mg PO BID PRN metoprolol succinate ER 100 mg PO DAILY olmesartan 20 mg PO DAILY omega-3 fatty acids 1 cap PO DAILY omeprazole 20 mg PO DAILY vibegron (Gemtesa) 75 mg PO DAILY 30 days Tobacco use date assessed: 11/19/23 Dental Screening Dental Screen Date: 09/20/23 HPI Diarrhea abdominal pain on and off HPI Details Pt c/o 1 week of watery diarrhea worse after eating. She denies nausea vomiting fever chills hematochezia melena. Patient has been taking medications for hypertension and hyperlipidemia and type 2 diabetes. [facility] Medical History Skin lesion Colonoscopy refused Chest pain Urinary incontinence Dizziness Annual physical exam Urinary incontinence DM type 2 (diabetes mellitus, type 2) Pruritus Carpal tunnel syndrome on both sides Hyperglycemia Hyperlipemia Hypertension HSV (herpes simplex virus) infection HPV (human papilloma virus) infection Surgical History Hx of unilateral oophorectomy Family History Father No problems noted. Mother No problems noted. Social History Housing: House Alcohol intake: never Patient Tobacco Use Status: Never used Tobacco e-Cigarette/Vaping Use: Never Used Second Hand Smoke Exposure: No service: No Current occupational status: employed Current occupational exposures/hazards: No Sexual orientation: Straight/Heterosexual Gender identity: Female Cognitive needs: No Hearing needs: No Vision needs: Yes Female Reproductive History Menstrual Age of Menarche: 14 Questionnaire Thrive Questionnaire Date Thrive assessed: 11/19/23 I am a: Patient What is your living situation today?: I have a steady place to live Within the past 12 months, did the food you bought not last and you didn't have the money to get more?: Never true Within the past 12 months, did you worry whether your food would run out before you got money to buy more?: Never true Do you have trouble paying for medicines?: No Do you have trouble getting transportation to medical appointments?: No Do you have trouble paying your heating and electricity bill?: No Do you have trouble taking care of your child, family member or friend?: No Do you have trouble with day-to-day activities such as bathing, preparing meals, shopping, managing finances, etc.?: No Are you currently unemployed and looking for a job?: No Are you interested in more education?: No Please select the resources that you would like help with: None Currently or been in a relationship where the following occur: No concerns reported THRIVE Score: 0 SHILPI-7 AMB Questionnaire SHILPI-7 Date SHILPI - 7 assessed: 07/17/23 Source: Developed by Drs. Aniket Palencia, Radha Alston, Homer Palmer and colleagues, with an educational heather from [employer]. Review of Systems Const All systems reviewed & are unremarkable except as noted in HPI and below ENT Reports no additional complaints Card Reports no additional complaints Resp Reports no additional complaints GI Reports no additional complaints Reports no additional complaints Physical exam (Primary Care) Vital Signs: Last Vital Signs Pulse 104 H 01/21/24 13:31 Pulse Ox 96 01/21/24 13:31 Oxygen Delivery Method Room Air 01/21/24 13:31 BMI result Body Mass Index 32.6 Tobacco/Smoking Status: Tobacco use Status Tobacco use date assessed 11/19/23 01/21/24 13:31 Patient Tobacco Use Status Never used Tobacco 01/21/24 13:31 e-Cigarette/Vaping Use Never Used 01/21/24 13:31 Thrive Assessment: Date of Thrive Assessment Date Thrive assessed 11/19/23 01/21/24 13:31 Currently or been in a relationship where the following occur: No concerns reported Const General: no acute distress HENMT Mouth: Normal oral and palatal mucosa present Neck Neck: Yes supple Resp Effort & Inspection: normal respiratory effort Auscultation: clear to auscultation bilaterally Cardio Rhythm: regular rhythm Heart sounds: S1 normal heart sound present and S2 normal heart sound present GI Inspection: Yes normal to inspection Palpation (GI): Soft to palpation, nontender and no guarding Percussion: Yes normal to percussion Auscultation: normal bowel sounds Coding Level of Care Code Est Pt Level 4 (79632) Diagnoses Diarrhea R19.7 DM type 2 (diabetes mellitus, type 2) E11.9 Hypertension I10 Assessment & Plan Assessment & Plan (1) Diarrhea: Code(s): R19.7 - Diarrhea, unspecified Category: Medical Plan: Acute diarrhea patient was advised to follow BRAT DIET AVOID DAIRY AND FRESH VEGETABLES AND FRUITS. Stool studies will be obtained and supportive care disc ussed with the patient (2) DM type 2 (diabetes mellitus, type 2): Comment: Metformin caused stomach upset, Farxiga chest pain Code(s): E11.9 - Type 2 diabetes mellitus without complications Category: Medical Plan: ADA diet discussed with the patient return for fasting blood work including A1c continue glipizide (3) Hypertension: Code(s): I10 - Essential (primary) hypertension Category: Medical Plan: Increase olmesartan to 40 mg a day continue metoprolol and amlodipine follow-up in 1 month. Orders: Orders GI Panel Today R19.7 - Diarrhea, unspecified Giardia Ag Stool EIA Today R19.7 - Diarrhea, unspecified Comprehensive [place]. Panel Fast 1 Month E11.9 - Type 2 diabetes mellitus without complications, E78.5 - Hyperlipidemia, unspecified, I10 - Essential (primary) hypertension TSH reflex Free T4 1 Month E11.9 - Type 2 diabetes mellitus without c omplications, E78.5 - Hyperlipidemia, unspecified, I10 - Essential (primary) hypertension Microalbumin, Random (w Creat) 1 Month E11.9 - Type 2 diabetes mellitus without complications, E78.5 - Hyperlipidemia, unspecified, I10 - Essential (primary) hypertension Leukocytes Stool Qualitative Today R19.7 - Diarrhea, unspecified Hemoglobin A1c 1 Month E11.9 - Type 2 diabetes mellitus without complications, E78.5 - Hyperlipidemia, unspecified, I10 - Essential (primary) hypertension Lipid Panel 1 Month E11.9 - Type 2 diabetes mellitus without complications, E78.5 - Hyperlipidemia, unspecified, I10 - Essential (primary) hypertension Medications: New olmesartan 40 mg PO DAILY 90 tabs 0RF Discontinued olmesartan Discontinued Reason: Doctor's Order 20 mg PO DAILY 90 tabs 1RF
== END 2024-01-21 14:02 | disposition home or self-care (01) ==
LOC: HO.HMCC 13:18
PROVIDERS: PCP Internal Medicine; Visit Provider Internal Medicine
DX: R19.7 Diarrhea, unspecified (principal); E11.9 Type 2 diabetes mellitus without complications; I10 Essential (primary) hypertension

== ENCOUNTER → 2024-01-21 13:17 | Outpatient (BNVA) | payer MEDICARE, SELFPAY | PROVIDERS: PCP Internal Medicine; Visit Provider Internal Medicine | DX: R19.7 Diarrhea, unspecified (principal); E11.9 Type 2 diabetes mellitus without complications; I10 Essential (primary) hypertension | CPT/HCPCS: 99212 ==

== ENCOUNTER 2024-01-22 14:55 | Outpatient (REF) | payer MEDICARE, SELFPAY ==
[2024-01-23 12:37] LABS: Adenovirus F 40/41 Not Detected (Not Detect.); Astrovirus Not Detected (Not Detect.); Campylobacter Not Detected (Not Detect.); Cryptosporidium Not Detected (Not Detect.); Cyclospora cayetanensis Not Detected (Not Detect.); E. coli EAEC Not Detected (Not Detect.); E. coli EPEC Not Detected (Not Detect.); E. coli ETEC Not Detected (Not Detect.); E. coli STEC Not Detected (Not Detect.); Entamoeba histolytica Not Detected (Not Detect.); Giardia lamblia Not Detected (Not Detect.); Norovirus GI/GII Not Detected (Not Detect.); Plesiomonas shigelloides Not Detected (Not Detect.); Rotavirus A Not Detected (Not Detect.); Salmonella Not Detected (Not Detect.); Sapovirus Not Detected (Not Detect.); Shigella sp./EIEC Not Detected (Not Detect.); Vibrio Not Detected (Not Detect.); Vibrio Cholerae Not Detected (Not Detect.); Yersinia enterocolitica Not Detected (Not Detect.)
== END 2024-01-22 14:56 | disposition home or self-care (01) ==
LOC: HO.LAB 14:55
PROVIDERS: PCP Internal Medicine; Visit Provider Internal Medicine
DX: R19.7 Diarrhea, unspecified (principal)
CPT/HCPCS: 87329; 87507

== ENCOUNTER 2024-01-31 15:34 | Outpatient (AMB) | payer MEDICARE, SELFPAY ==
--- NOTE | 2024-01-31 16:02 | A.OFFVIS_ITS ---
Intake Visit Reasons: 3m/PVR Intake Note: Patient is present for follow up urinary incontinence Urology Medication: Gemtesa Blood Thinner: none PVR: 0ml's In Processing Instructor Required: No Accompanied by: Daughter Allergies hydrochlorothiazide Allergy (Intermediate, Verified 02/01/24 09:06) Nausea triamterene Allergy (Intermediate, Verified 02/01/24 09:06) nausea clarithromycin [From Biaxin] Allergy (Unknown, Verified 02/01/24 09:06) unknown doxycycline Allergy (Unknown, Verified 02/01/24 09:06) unknown alendronate sodium Adverse Reaction (Intermediate, Verified 02/01/24 09:06) Dizziness lisinopril Adverse Reaction (Intermediate, Verified 02/01/24 09:06) cough losartan Adverse Reaction (Intermediate, Verified 02/01/24 09:06) Fatigued dapagliflozin [From Farxiga] Adverse Reaction (Verified 02/01/24 09:06) severe Chest Pain Medication List - Last Reconciled 02/01/24 by ROBBIN Mathew amlodipine 5 mg PO DAILY ascorbic acid (vitamin C) (Vitamin C) 50 mg PO DAILY atorvastatin 40 mg PO DAILY betamethasone dipropionate 0.05% 1 appl topical DAILY PRN blood sugar diagnostic ([employer] Ver[employer] test strips) Test once per day blood-glucose meter ([employer] Ver[employer] Flex Meter) Use daily as directed cholecalciferol (vitamin D3) (Vitamin D3) 25 mcg PO DAILY dupilumab (Dupixent) 300 mg subcut Q2W glipizide 5 mg PO BID lancets ([employer] Delica Plus Lancet) Test blood sugar once a day meclizine 25 mg PO BID PRN metoprolol succinate ER 100 mg PO DAILY olmesartan 40 mg PO DAILY omega-3 fatty acids 1 cap PO DAILY omeprazole 20 mg PO DAILY vibegron (Gemtesa) 75 mg PO DAILY 90 days HPI Comments Details: Sona is a pleasant 78 year old portuguese speaking patient of Dr. Noland who is accompanied by her daughter at todays office visit. She has a past medical history of carpal tunnel, type 2 diabetes, HPV, herpes simplex virus, hyperlipidemia, hypertension, osteoporosis, and urinary incontinence. She present to the office today for a follow up urinary incontinence. Of note, patient was seen approximately 3 months ago at which time Vesicare was discontinued and the patient was started in 75 mg of Gemtesa daily as she noted no improvement in her lower urinary tract symptoms with 10mg of Vesicare daily. In discussion with the patient and her daughter today she reports significant improvement in her urinary symptoms with Gemtesa 75 mg daily. She discusses her on going issues with pruritus and has been following up with her PCP, correspondence renew clerk, and tailer in. Previous workup has included a retroperitoneal ultrasound 10/16 noting bilateral kidneys with no calculi and or hydronephrosis. Benign bilateral renal cysts are noted. The bladder is partially distended. Bladder jets are demonstrated. Pre void prior his proximally 130 mL. Postvoid bladder volume is a proximally 50 mL. Discussed at length potential causes for lower urinary tract symptoms patient is experiencing. Discussed importance of managem ent and diabetes for improvement lower urinary tract symptoms as well as overall health and well-being. She otherwise denies hematuria, dysuria, foul-smelling urine, changes to urinary stream, flank pain, fever, and or chills. In office urinalysis results reviewed with the patient today. PVR 0ml's. She otherwise offers no issues or concerns at this time. [facility] Medical History (Updated 02/01/24 @ 09:27 by Mary Kay Joseph [facility]) Skin lesion Colonoscopy refused Chest pain Urinary incontinence Dizziness Annual physical exam DM type 2 (diabetes mellitus, type 2) Pruritus Carpal tunnel syndrome on both sides Hyperglycemia Hyperlipemia Hypertension HSV (herpes simplex virus) infection HPV (human papilloma virus) infection Surgical History Hx of unilateral oophorectomy Family History Father No problems noted. Mother No problems noted. Social History Housing: House Alcohol intake: never Patient Tobacco Use Status: Never used Tobacco e-Cigarette/Vaping Use: Never Used Second Hand Smoke Exposure: No service: No Current occupational status: employed Current occupational exposures/hazards: No Sexual orientation: Straight/Heterosexual Gender identity: Female Cognitive needs: No Hearing needs: No Vision needs: Yes Female Reproductive History Menstrual Age of Menarche: 14 Review of Systems Const Reports as per [facility] Eyes Reports no additional complaints ENT Reports no additional complaints Card Reports as per HPI Resp Reports no additional complaints GI Reports as per [facility] Reports as per [facility] Musc Reports as per [facility] Skin/Breast Reports as per [facility] Neuro Reports as per HPI Endo Reports as per HPI Physical Exam Const General: cooperative, healthy appearing, comfortable, no acute distress, well developed, alert and awake Orientation/consciousness: patient oriented x3 Limitations: no limitations HEENT Head: Yes normal to inspection, Yes normocephalic and Yes atraumatic Ears: hearing grossly normal bilaterally Eyes General: appearance normal, both eyes and all related structures Neck Neck: Yes normal visual inspection and Yes trachea midline Chest Chest palpation & inspection: normal inspection of the chest Resp Effort & Inspection: normal respiratory effort and able to speak in complete sentences Cardio Rate: regular rate GI Inspection: Yes normal to inspection General: Yes no CVA tenderness Back/Spine/Pelvis Back: no CVA tenderness Skin General skin exam: no rashes or lesions noted Neuro General: patient oriented x3 Extrem General: Yes normal to inspection Psych Appearance: grossly normal and well kempt Mental Status: mental status grossly normal Speech and movement: Normal speech and movement present and Clear speech present Affect: normal affect Attitude: cooperative Thought process: Normal thought process present Thought content: Normal thought content present Insight: Fair insight present (Psych) Judgement: Fair judgement present (Psych) Office Procedures Post Void Residual Post Residual Void Post Void Residual (PVR): 0 [id number]-[id number] Void Residual by ultrasound Results AMB Urinalysis, Automated UA Leukoctes 70 Wilfredo/uL Last Edit by Brenda Brink on 01/31/24 16:34 UA Nitrite Last Edit by Brenda Brink on 01/31/24 16:34 UA Urobilinogen 0.2 mg/dL Last Edit by Brenda Brink on 01/31/24 16:34 UA Protein 0 mg/dL Last Edit by Brenda Brink on 01/31/24 16:34 UA pH 6.0 Last Edit by Brenda Brink on 01/31/24 16:34 UA Blood 0 Grover/uL Last Edit by Brenda Brink on 01/31/24 16:34 UA Specific [place] 1.015 Last Edit by Brenda Brink on 01/31/24 16:34 UA Ketone Last Edit by Brenda Brink on 01/31/24 16:34 UA Bilirubin 0 mg/dL Last Edit by Brenda Brink on 01/31/24 16:34 UA Glucose 0 mg/dL Last Edit by Brenda Brink on 01/31/24 16:34 Results Reviewed Results Reviewed: Laboratory Last Values Urine pH (Auto) 6.0 01/31/24 16:05 Specific [place] (Auto) 1.015 01/31/24 16:05 Urine Protein (Auto) 0 mg/dL 01/31/24 16:05 Glucose (UA)(Auto) 0 mg/dL 01/31/24 16:05 Urine Blood (Auto) 0 Grover/uL 01/31/24 16:05 Urine Bilirubin (Auto) 0 mg/dL 01/31/24 16:05 Urine Urobilinogen (Auto) 0.2 mg/dL 01/31/24 16:05 Leukocyte Esterase (Auto) 70 Wilfredo/uL 01/31/24 16:05 Assessment & Plan Assessment & Plan (1) Renal cyst: Code(s): N28.1 - Cyst of kidney, acquired Category: Medical (2) Urinary incontinence: Code(s): R32 - Unspecified urinary incontinence Category: Medical Plan In office urinalysis results reviewed with the patient today; as noted above. PVR 0 mL. Continue Gemtesa as discussed and prescribed. Patient reports be happy with current voiding parameters. Patient currently denies any bothersome urinary issues or concerns. Discussed importance of managing diabetes for improvement in lower urinary tract symptoms as well as overall health and well-being. We discussed at length potential causes of lower urinary tract symptoms patient was experiencing as well as further treatment options; and risks and benefits of these treatment options. Discussed possible near future in office urodynamics and or cystoscopy for further assessment evaluation if symptoms arise. Follow-up in 6 months with PVR; or sooner with any issues, concerns, and or questions. Orders: Orders AMB Post Void Residual by ultrasound 01/31/24 R32 - Unspecified urinary incontinence AMB Urinalysis Automated 01/31/24 Z13.9 - Encounter for screening, unspecified Medications: Changed From vibegron (Gemtesa) 75 mg PO DAILY 30 days 30 tabs 0RF N32.81 - Overactive bladder To vibegron (Gemtesa) 75 mg PO DAILY 90 days 90 tabs 4RF N32.81 - Overactive bladder Patient Instructions: The patient had an opportunity to ask questions regarding the treatment plan. All questions were answered. Physical exam, labs, and imaging were discussed and reviewed in detail. As well as risks, benefits, and discussion of treatment choices. No major barriers to understanding were identified. The patient expressed understanding and agreement with the above treatment plan. The patient was made aware they should contact our office by phone for worsening of their current condition, the appearance of new symptoms, or with any questions or concerns. Compliance is encouraged with any medications and follow up testing that is ordered. It is a privilege to be allowed the opportunity to participate in? your urological care.? Again, if you have any questions or howie rns If you have any questions or concerns please do not hesitate to contact me. The office is [phone]. This note is constructed using voice recognition software. While every effort has been made to ensure accuracy staff occupational therapist errors may have been included. Yours sincerely, ROBBIN Mathew Coding Level of Care Code Est Pt Level 4 (50251) Complex EM visit Add On G2211 Diagnoses Renal cyst N28.1 Urinary incontinence R32 CPT Codes Post Residual Void - PVR CPT Code: 49853-Heod Void Residual by ultrasound ([id number]) Time Spent (min) 35
== END 2024-01-31 16:45 | disposition home or self-care (01) ==
LOC: HO.HUSH 15:35
PROVIDERS: PCP Internal Medicine; Visit Provider Nurse Practitioner Family
DX: N28.1 Cyst of kidney, acquired (principal); R32 Unspecified urinary incontinence
CPT/HCPCS: 99214; G2211

== ENCOUNTER → 2024-01-31 15:34 | Outpatient (BNVA) | payer MEDICARE, SELFPAY | PROVIDERS: PCP Internal Medicine; Visit Provider Nurse Practitioner Family | DX: R32 Unspecified urinary incontinence (principal); N28.1 Cyst of kidney, acquired; N32.81 Overactive bladder; Z79.899 Other long term (current) drug therapy | CPT/HCPCS: 51798; 81003; 99212 ==

== ENCOUNTER 2024-02-23 06:31 | Outpatient (REF) | payer MEDICARE, SELFPAY ==
[2024-02-23 11:22] LABS: Estimated Average Glucose 212 mg/dL; Hemoglobin A1C 297.4961 umol/L; Total Hemoglobin (HGBA1C) 3994.0247 umol/L
[2024-02-23 11:32] LABS: Microalbum/Creatinine Ratio Ur 30.2 ug/mg cr (<30)
[2024-02-23 11:38] LABS: Alanine Aminotransferase 34 U/L (0-31); Albumin Level 4.1 g/dL (3.5-5.0); Alkaline Phosphatase 66 U/L (39-117); Anion Gap 13 (12-20); Aspartate Amino Transferase 27 U/L (5-31); Bilirubin Total 0.7 mg/dL (0.0-1.0); Blood Urea Nitrogen 18 mg/dL (9-16); Calcium 9.1 mg/dL (8.4-10.2); Carbon Dioxide 25 mmol/L (22-29); Chloride 106 mmol/L (96-108); Cholesterol 221 mg/dL (<200); Estimated Glomerular Filt Rate 47; Glucose Fasting 211 mg/dL (60-99); HDL Cholesterol 62 mg/dL (>40); LDL Cholesterol Calculated 133 mg/dL (<100); Potassium 4.1 mmol/L (3.3-5.1); Sodium 140 mmol/L (135-145); Total Protein 7.4 g/dL (6.5-8.0); Triglycerides 133 mg/dL (<150)
[2024-02-23 11:54] LABS: TSH reflex Free T4 2.63 uIU/mL (0.32-4.0)
== END 2024-02-23 06:32 | disposition home or self-care (01) ==
LOC: HO.HMGCLDS 06:31
PROVIDERS: PCP Internal Medicine; Visit Provider Internal Medicine
DX: E11.9 Type 2 diabetes mellitus without complications (principal); I10 Essential (primary) hypertension; E78.5 Hyperlipidemia, unspecified
CPT/HCPCS: 36415; 80053; 80061; 82043; 82570; 83036; 84443

== ENCOUNTER 2024-02-27 13:10 | Outpatient (AMB) | payer MEDICARE, SELFPAY ==
[2024-02-27 13:21] VITALS: BP 138/80; PULSE 77; O2SAT 96; BMI 32.6
--- NOTE | 2024-02-27 13:21 | MHC.PC.OV ---
Vital Signs 02/27/24 13:21 Height 5 ft 3 in Weight 184 lb BMI 32.6 BP 138/80 Blood Pressure Location Rt brachial Position Sitting Pulse 77 Pulse Source Pulse Oximeter Pulse Oximetry (%) 96 Oxygen Delivery Method Room Air Intake Visit Reasons: 1 month follow up Intake Note: Pt is here today for her 1mo. f/u Allergies hydrochlorothiazide Allergy (Intermediate, Verified 02/27/24 13:22) Nausea triamterene Allergy (Intermediate, Verified 02/27/24 13:22) nausea clarithromycin [From Biaxin] Allergy (Unknown, Verified 02/27/24 13:22) unknown doxycycline Allergy (Unknown, Verified 02/27/24 13:22) unknown alendronate sodium Adverse Reaction (Intermediate, Verified 02/27/24 13:22) Dizziness lisinopril Adverse Reaction (Intermediate, Verified 02/27/24 13:22) cough losartan Adverse Reaction (Intermediate, Verified 02/27/24 13:22) Fatigued dapagliflozin [From Farxiga] Adverse Reaction (Verified 02/27/24 13:22) severe Chest Pain Medication List - Last Reconciled 02/27/24 by Kimberlyn Noland MD amlodipine 5 mg PO DAILY ascorbic acid (vitamin C) (Vitamin C) 50 mg PO DAILY atorvastatin 40 mg PO DAILY betamethasone dipropionate 0.05% 1 appl topical DAILY PRN blood sugar diagnostic ([employer] Verio test strips) Test once per day blood-glucose meter ([employer] Verio Flex Meter) Use daily as directed cholecalciferol (vitamin D3) (Vitamin D3) 25 mcg PO DAILY dupilumab (Dupixent) 300 mg subcut Q2W glipizide 5 mg PO BID lancets ([employer] Delica Plus Lancet) Test blood sugar once a day meclizine 25 mg PO BID PRN metformin ER 750 mg PO BID metoprolol succinate ER 100 mg PO DAILY olmesartan 40 mg PO DAILY omega-3 fatty acids 1 cap PO DAILY omeprazole 20 mg PO DAILY vibegron (Gemtesa) 75 mg PO DAILY 90 days Tobacco use date assessed: 02/27/24 Fall risk assessment: No Falls in past year Last assessed Fall Risk: 02/27/24 Dental Screening Dental Screen Date: 09/20/23 HPI 1 month follow up HPI Details Pt presents for f/u HTN, hyperlipid, DM 2, stable on meds. 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 She has been taking different antihistamines without significant relief and tried multiple topical medications. [facility] Medical History Skin lesion Colonoscopy refused Chest pain Urinary incontinence Dizziness Annual physical exam DM type 2 (diabetes mellitus, type 2) Pruritus Carpal tunnel syndrome on both sides Hyperglycemia Hyperlipemia Hypertension HSV (herpes simplex virus) infection HPV (human papilloma virus) infection Surgical History Hx of unilateral oophorectomy Family History Father No problems noted. Mother No problems noted. Social History Housing: House Alcohol intake: never Patient Tobacco Use Status: Never used Tobacco e-Cigarette/Vaping Use: Never Used Second Hand Smoke Exposure: No service: No Current occupational status: employed Current occupational exposures/hazards: No Sexual orientation: Straight/Heterosexual Gender identity: Female Cognitive needs: No Hearing needs: No Vision needs: Yes Female Reproductive History Menstrual Age of Menarche: 14 Questionnaire Thrive Questionnaire Date Thrive assessed: 11/19/23 I am a: Patient What is your living situation today?: I have a steady place to live Within the past 12 months, did the food you bought not last and you didn't have the money to get more?: Never true Within the past 12 months, did you worry whether your food would run out before you got money to buy more?: Never true Do you have trouble paying for medicines?: No Do you have trouble getting transportation to medical appointments?: No Do you have trouble paying your heating and electricity bill?: No Do you have trouble taking care of your child, family member or friend?: No Do you have trouble with day-to-day activities such as bathing, preparing meals, shopping, managing finances, etc.?: No Are you currently unemployed and looking for a job?: No Are you interested in more education?: No Please select the resources that you would like help with: None Currently or been in a relationship where the following occur: No concerns reported THRIVE Score: 0 SHILPI-7 AMB Questionnaire SHILPI-7 Date SHILPI - 7 assessed: 07/17/23 Source: Developed by Drs. Aniket Palencia, Radha Alston, Homer Palmer and colleagues, with an educational heather from [employer]. Review of Systems Const All systems reviewed & are unremarkable except as noted in HPI and below Eyes Reports no additional complaints ENT Reports no additional complaints Card Reports no additional complaints Resp Reports no additional complaints GI Reports no additional complaints Reports no additional complaints Physical exam (Primary Care) Vital Signs: Last Vital Signs Pulse 77 02/27/24 13:21 BP 168/80 H 02/27/24 13:21 Pulse Ox 96 02/27/24 13:21 Oxygen Delivery Method Room Air 02/27/24 13:21 BMI result Body Mass Index 32.6 Tobacco/Smoking Status: Tobacco use Status Tobacco use date assessed 02/27/24 02/27/24 13:26 Patient Tobacco Use Status Never used Tobacco 02/27/24 13:26 e-Cigarette/Vaping Use Never Used 02/27/24 13:26 Thrive Assessment: Date of Thrive Assessment Date Thrive assessed 11/19/23 02/27/24 13:26 Currently or been in a relationship where the following occur: No concerns reported Const General: no acute distress HENMT Head: Yes normal to inspection Face and sinus: Yes normal facial exam Mouth: Normal oral and palatal mucosa present Throat: Yes posterior oropharynx normal Neck Neck: Yes supple Resp Effort & Inspection: normal respiratory effort Auscultation: clear to auscultation bilaterally Cardio Rhythm: regular rhythm Heart sounds: S1 normal heart sound present and S2 normal heart sound present GI Inspection: Yes normal to inspection Palpation (GI): Soft to palpation Percussion: Yes normal to percussion Skin Other: Erythematous rash on anterior shins of both lower extremities, chronic venous stasis changes Coding Level of Care Code Est Pt Level 4 (03219) Complex EM visit Add On G2211 Diagnoses Hypertension I10 Hyperlipemia E78.5 DM type 2 (diabetes mellitus, type 2) E11.9 Assessment & Plan Assessment & Plan (1) Hypertension: Code(s): I10 - Essential (primary) hypertension Category: Medical Plan: Continue current medications (2) Hyperlipemia: Code(s): E78.5 - Hyperlipidemia, unspecified Category: Medical Plan: Continue statin (3) DM type 2 (diabetes mellitus, type 2): Comment: Metformin caused stomach upset, Farxiga chest pain Code(s): E11.9 - Type 2 diabetes mellitus without complications Category: Medical Plan: A1c is 9.0, ADA diet increase exercise weight loss discussed with the patient metformin 750 twice a day will be added to glipizide. Follow-up in 3 months with a fasting labs before Orders: Orders Lipid Panel 3 Months E11.9 - Type 2 diabetes mellitus without complications, E78.5 - Hyperlipidemia, unspecified, I10 - Essential (primary) hypertension Comprehensive [place]. Panel Fast 3 Months E11.9 - Type 2 diabetes mellitus without complications, E78.5 - Hyperlipidemia, unspecified, I10 - Essential (primary) hypertension Hemoglobin A1c 3 Months E11.9 - Type 2 diabetes mellitus without complications, E78.5 - Hyperlipidemia, unspecified, I10 - Essential (primary) hypertension Complete Blood Count Auto Diff 3 Months E11.9 - Type 2 diabetes mellitus without complications, E78.5 - Hyperlipidemia, unspecified, I10 - Essential (primary) hypertension Microalbumin, Random (w Creat) 3 Months E11.9 - Type 2 diabetes mellitus without complications, E78.5 - Hyperlipidemia, unspecified, I10 - Essential (primary) hypertension Medications: New metformin ER 750 mg PO BID 180 tabs 2RF blood sugar diagnostic ([employer] Test strips) 1 tid 100 ea 2RF
== END 2024-02-27 13:58 | disposition home or self-care (01) ==
PROVIDERS: PCP Internal Medicine; Visit Provider Internal Medicine
DX: I10 Essential (primary) hypertension (principal); E78.5 Hyperlipidemia, unspecified; E11.9 Type 2 diabetes mellitus without complications

== ENCOUNTER → 2024-02-27 13:10 | Outpatient (BNVA) | payer MEDICARE, SELFPAY | PROVIDERS: PCP Internal Medicine; Visit Provider Internal Medicine | DX: I10 Essential (primary) hypertension (principal); E78.5 Hyperlipidemia, unspecified; E11.9 Type 2 diabetes mellitus without complications | CPT/HCPCS: 99212 ==

== ENCOUNTER 2024-05-24 06:35 | Outpatient (REF) | payer MEDICARE, SELFPAY ==
[2024-05-24 11:46] LABS: MANUAL DIFF FLAG NO
[2024-05-24 11:55] LABS: Basophils Percent Auto 0.5 % (0-2); Eosinophils Absolute Auto 0.2 X10*3/uL (0.0-0.4); Eosinophils Percent Auto 2.5 % (0-4); Hematocrit 44.1 % (37.0-47.0); Hemoglobin 14.6 g/dl (12.0-16.0); Imm Gran Abs Auto 0.02 X10*3/uL (0.00-0.03); Imm Gran Pct Auto 0.3 % (0.0-0.4); Lymphocytes Absolute Auto 2.3 X10*3/uL (1.2-4.9); Lymphocytes Percent Auto 30.1 % (20-40); Mean Corpuscular HGB Conc 33.1 g/dl (31.0-35.0); Mean Corpuscular Volume 90.7 fL (80.0-98.0); Mean Platelet Volume 11.8 fL (9.4-12.3); Monocytes Absolute Auto 0.5 X10*3/uL (0.1-1.2); Monocytes Percent Auto 6.6 % (2-11); Neutrophils Absolute Auto 4.5 x10*3/uL (2.0-8.3); Platelet Count 198 X10*3/uL (160-400); Red Blood Count 4.86 X10*6/uL (4.20-5.50); Red Cell Distribution Width 12.3 % (11.0-16.0); White Blood Count 7.5 X10*3/uL (4.8-10.8)
[2024-05-24 12:15] LABS: Estimated Average Glucose 186 mg/dL; Hemoglobin A1C 241.5168 umol/L; Hemoglobin A1c % 8.1 % (<6.0); Total Hemoglobin (HGBA1C) 3723.5333 umol/L
[2024-05-24 12:30] LABS: Creatinine Urine 62.83 mg/dL; Microalbum/Creatinine Ratio Ur 20.6 ug/mg cr (<30)
[2024-05-24 14:09] LABS: Alanine Aminotransferase 21 U/L (0-31); Albumin Level 3.8 g/dL (3.5-5.0); Alkaline Phosphatase 59 U/L (39-117); Anion Gap 13 (12-20); Aspartate Amino Transferase 23 U/L (5-31); Bilirubin Total 0.6 mg/dL (0.0-1.0); Blood Urea Nitrogen 19 mg/dL (9-16); Calcium 8.8 mg/dL (8.4-10.2); Carbon Dioxide 24 mmol/L (22-29); Chloride 109 mmol/L (96-108); Cholesterol 161 mg/dL (<200); Estimated Glomerular Filt Rate > 60; Glucose Fasting 170 mg/dL (60-99); HDL Cholesterol 55 mg/dL (>40); LDL Cholesterol Calculated 86 mg/dL (<100); Potassium 4.2 mmol/L (3.3-5.1); Sodium 142 mmol/L (135-145); Total Protein 7.2 g/dL (6.5-8.0); Triglycerides 103 mg/dL (<150)
== END 2024-05-24 06:36 | disposition home or self-care (01) ==
LOC: HO.HMGCLDS 06:35
PROVIDERS: PCP Internal Medicine; Visit Provider Internal Medicine
DX: E11.9 Type 2 diabetes mellitus without complications (principal); I10 Essential (primary) hypertension; E78.5 Hyperlipidemia, unspecified
CPT/HCPCS: 36415; 80053; 80061; 82043; 82570; 83036; 85025

== ENCOUNTER 2024-05-30 13:32 | Outpatient (AMB) | payer MEDICARE, SELFPAY ==
[2024-05-30 13:38] VITALS: BP 138/78; PULSE 85; RESP 18; TEMP 36.8; O2SAT 95; BMI 32.4
--- NOTE | 2024-05-30 13:38 | MHC.PC.OV ---
Vital Signs 05/30/24 13:38 Height 5 ft 3 in Weight 183 lb BMI 32.4 BP 138/78 Blood Pressure Location Lt brachial Position Sitting Respiration 18 Pulse 85 Pulse Source Pulse Oximeter Temp 98.3 F Temp Source Oral Pulse Oximetry (%) 95 Oxygen Delivery Method Room Air Intake Visit Reasons: 3 month follow up Intake Note: Pt is here today for 3 months follow up visit on HTN and DM. Allergies hydrochlorothiazide Allergy (Intermediate, Verified 05/30/24 13:51) Nausea triamterene Allergy (Intermediate, Verified 05/30/24 13:51) nausea clarithromycin [From Biaxin] Allergy (Unknown, Verified 05/30/24 13:51) unknown doxycycline Allergy (Unknown, Verified 05/30/24 13:51) unknown alendronate sodium Adverse Reaction (Intermediate, Verified 05/30/24 13:51) Dizziness lisinopril Adverse Reaction (Intermediate, Verified 05/30/24 13:51) cough losartan Adverse Reaction (Intermediate, Verified 05/30/24 13:51) Fatigued dapagliflozin [From Farxiga] Adverse Reaction (Verified 05/30/24 13:51) severe Chest Pain Tobacco use date assessed: 05/30/24 Fall risk assessment: No Falls in past year Last assessed Fall Risk: 05/30/24 Dental Screening Dental Screen Date: 05/30/24 Did you have a dental visit in the last 12 months?: No Did you have a dental problem in the last 6 months where you did not have access to dental care?: No Was dental information given to patient?: Patient declined HPI 3 month follow up HPI Details Pt presents for f/u DM 2, hyperlipid, HTN, stable on meds. [facility] Medical History Skin lesion Colonoscopy refused Chest pain Urinary incontinence Dizziness Annual physical exam DM type 2 (diabetes mellitus, type 2) Pruritus Carpal tunnel syndrome on both sides Hyperglycemia Hyperlipemia Hypertension HSV (herpes simplex virus) infection HPV (human papilloma virus) infection Surgical History Hx of unilateral oophorectomy Family History Father No problems noted. Mother No problems noted. Social History Housing: House Alcohol intake: never Patient Tobacco Use Status: Never used Tobacco e-Cigarette/Vaping Use: Never Used Second Hand Smoke Exposure: No service: No Current occupational status: employed Current occupational exposures/hazards: No Sexual orientation: Straight/Heterosexual Gender identity: Female Cognitive needs: No Hearing needs: No Vision needs: Yes Female Reproductive History Menstrual Age of Menarche: 14 Questionnaire PHQ-9 Over the last 2 weeks, how often have you been bothered by any of the following problems? 1. Little interest or pleasure in doing things: not at all 2. Feeling down, depressed, or hopeless: not at all 3. Trouble falling or staying asleep, or sleeping too much: not at all 4. Feeling tired or having little energy: not at all 5. Poor appetite or overeating: not at all 6. Feeling bad about yourself - or that you are a failure or have let yourself or your family down: not at all 7. Trouble concentrating on things, such as reading the newspaper or watching television: not at all 8. Moving or speaking so slowly that other people could have noticed. Or the opposite - being so fidgety or restless that you have been moving around a lot more than usual: not at all 9. Thoughts that you would be better off or of hurting yourself in some way: not at all Total score: 0 Depression Screening Interpretation: Negative Depression Screening Done: Yes 95779 - PHQ-9 Billing: Yes Source: Developed by Drs. Aniket Palencia, Radha Alston, Homer Palmer and colleagues, with an educational heather from [employer]. Thrive Questionnaire Date Thrive assessed: 05/30/24 I am a: Patient What is your living situation today?: I have a steady place to live Within the past 12 months, did the food you bought not last and you didn't have the money to get more?: Never true Within the past 12 months, did you worry whether your food would run out before you got money to buy more?: Never true Do you have trouble paying for medicines?: No Do you have trouble getting transportation to medical appointments?: No Do you have trouble paying your heating and electricity bill?: No Do you have trouble taking care of your child, family member or friend?: No Do you have trouble with day-to-day activities such as bathing, preparing meals, shopping, managing finances, etc.?: No Are you currently unemployed and looking for a job?: No Are you interested in more education?: No Please select the resources that you would like help with: None THRIVE Score: 0 AUDIT C Alcohol Use Questionnaire (AUDIT-C) 1. How often do you have a drink containing alcohol?: Never 3. How often do you have six or more drinks on one occasion?: Never Total Score: 0 SHILPI-7 AMB Questionnaire SHILPI-7 Date SHILPI - 7 assessed: 05/30/24 Feeling nervous, anxious, or on edge: 0 = Not at all Not being able to stop or control worryin = Not at all Worrying too much about different things: 0 = Not at all Trouble relaxin = Not at all Being so restless that it is hard to sit still: 0 = Not at all Becoming easily annoyed or irritable: 0 = Not at all Feeling afraid as if something awful might happen: 0 = Not at all Total SHILPI-7 score (0-4 normal; 5-9 mild; 10-14 moderate; 15-21 severe): 0 Source: Developed by Drs. Aniket Palencia, Radha Alston, Homer Palmer and colleagues, with an educational heather from [employer]. SHILPI-7 Assessment Billing SHILPI-7 Assessment Tool: SHILPI-7 Assessment 17641 Review of Systems Const All systems reviewed & are unremarkable except as noted in HPI and below ENT Reports no additional complaints Card Reports no additional complaints Resp Reports no additional complaints GI Reports no additional complaints Reports no additional complaints Physical exam (Primary Care) Vital Signs: Last Vital Signs Temp 98.3 F 05/30/24 13:38 Pulse 85 05/30/24 13:38 Resp 18 05/30/24 13:38 BP 138/78 05/30/24 13:38 Pulse Ox 95 05/30/24 13:38 Oxygen Delivery Method Room Air 05/30/24 13:38 BMI result Body Mass Index 32.4 Tobacco/Smoking Status: Tobacco use Status Tobacco use date assessed 05/30/24 05/30/24 13:56 Patient Tobacco Use Status Never used Tobacco 05/30/24 13:56 e-Cigarette/Vaping Use Never Used 05/30/24 13:39 PHQ-9: PHQ-9 Score PHQ-9: Total score 0 05/30/24 13:56 Depression Screening Interpretation: Negative Thrive Assessment: Date of Thrive Assessment Date Thrive assessed 05/30/24 05/30/24 13:39 Const General: no acute distress HENMT Head: Yes normal to inspection Mouth: Normal oral and palatal mucosa present Eyes General: appearance normal, both eyes and all related structures Neck Neck: Yes supple Resp Effort & Inspection: normal respiratory effort Auscultation: clear to auscultation bilaterally Cardio Rhythm: regular rhythm Heart sounds: S1 normal heart sound present and S2 normal heart sound present GI Inspection: Yes normal to inspection Palpation (GI): Soft to palpation Percussion: Yes normal to percussion Auscultation: normal bowel sounds Coding Level of Care Code Est Pt Level 4 (37723) Diagnoses DM type 2 (diabetes mellitus, type 2) E11.9 Hyperlipemia E78.5 Hypertension I10 Additional Codes SHILPI-7 Assessment Billing - SHILPI-7 Assessment Tool: SHILPI-7 Assessment 02127 ([id number]) PHQ-9 - 57004 - PHQ-9 Billing: Yes ([id number]) Assessment & Plan Assessment & Plan (1) DM type 2 (diabetes mellitus, type 2): Code(s): E11.9 - Type 2 diabetes mellitus without complications Category: Medical Plan: A1c is down to 8.1, ADA diet increase exercise weight loss discussed with the patient continue current medications. Patient was advised to decrease glipizide to 5 mg twice a day she has been taking only once a day. Follow-up in 3 months with a fasting labs before (2) Hyperlipemia: Code(s): E78.5 - Hyperlipidemia, unspecified Category: Medical Plan: Continue statin (3) Hypertension: Code(s): I10 - Essential (primary) hypertension Category: Medical Plan: Continue current medications Orders: Orders Comprehensive Met. Panel 3 Months E11.9 - Type 2 diabetes mellitus without complications, E78.5 - Hyperlipidemia, unspecified, I10 - Essential (primary) hypertension Hemoglobin A1c 3 Months E11.9 - Type 2 diabetes mellitus without complications, E78.5 - Hyperlipidemia, unspecified, I10 - Essential (primary) hypertension Microalbumin, Random (w Creat) 3 Months E11.9 - Type 2 diabetes mellitus without complications, E78.5 - Hyperlipidemia, unspecified, I10 - Essential (primary) hypertension Complete Blood Count Auto Diff 3 Months E11.9 - Type 2 diabetes mellitus without complications, E78.5 - Hyperlipidemia, unspecified, I10 - Essential (primary) hypertension Lipid Panel 3 Months E11.9 - Type 2 diabetes mellitus without complications, E78.5 - Hyperlipidemia, unspecified, I10 - Essential (primary) hypertension Medications: Refilled atorvastatin 40 mg PO DAILY 90 tabs 3RF glipizide 5 mg PO BID 180 tabs 3RF metformin ER 750 mg PO BID 180 tabs 3RF olmesartan 40 mg PO DAILY 90 tabs 3RF amlodipine 5 mg PO DAILY 90 tabs 3RF metoprolol succinate ER 100 mg PO DAILY 90 tabs 3RF
== END 2024-05-30 14:39 | disposition home or self-care (01) ==
PROVIDERS: PCP Internal Medicine; Visit Provider Internal Medicine
DX: E11.9 Type 2 diabetes mellitus without complications (principal); E78.5 Hyperlipidemia, unspecified; I10 Essential (primary) hypertension

== ENCOUNTER → 2024-05-30 13:32 | Outpatient (BNVA) | payer MEDICARE, SELFPAY | PROVIDERS: PCP Internal Medicine; Visit Provider Internal Medicine | DX: E11.9 Type 2 diabetes mellitus without complications (principal); E78.5 Hyperlipidemia, unspecified; I10 Essential (primary) hypertension | CPT/HCPCS: 96127; 99212 ==

== ENCOUNTER 2024-07-28 15:34 | Outpatient (AMB) | payer MEDICARE, SELFPAY ==
--- NOTE | 2024-07-28 15:46 | MHC.OFFVIS ---
Intake Visit Reasons: 6M Intake Note: Patient is present for a 6 month follow up Urology Medication: Gemtesa Blood Thinner: none PVR: 0ml Employee Benefits Specialist Required: Yes Employee Benefits Specialist Services: Employee Benefits Specialist Present Accompanied by: Daughter Allergies hydrochlorothiazide Allergy (Intermediate, Verified 07/28/24 20:38) Nausea triamterene Allergy (Intermediate, Verified 07/28/24 20:38) nausea clarithromycin [From Biaxin] Allergy (Unknown, Verified 07/28/24 20:38) unknown doxycycline Allergy (Unknown, Verified 07/28/24 20:38) unknown alendronate sodium Adverse Reaction (Intermediate, Verified 07/28/24 20:38) Dizziness lisinopril Adverse Reaction (Intermediate, Verified 07/28/24 20:38) cough losartan Adverse Reaction (Intermediate, Verified 07/28/24 20:38) Fatigued dapagliflozin [From Farxiga] Adverse Reaction (Verified 07/28/24 20:38) severe Chest Pain Medication List - Last Reconciled 07/28/24 by CAITLIN Mathew- amlodipine 5 mg PO DAILY atorvastatin 40 mg PO DAILY blood sugar diagnostic (SafetyCertifiedTouch Verio test strips) Test once per day blood-glucose meter (OneTouch Verio Flex Meter) Use daily as directed cetirizine 20 mg PO BEDTIME cholecalciferol (vitamin D3) (Vitamin D3) 25 mcg PO DAILY fesoterodine ER 4 mg PO DAILY 30 days glipizide 5 mg PO BID lancets (OneTouch Delica Plus Lancet) Test blood sugar once a day metformin ER 750 mg PO BID metoprolol succinate ER 100 mg PO DAILY olmesartan 40 mg PO DAILY HPI Comments Details: Sona is a pleasant 78 year old hungarian speaking patient of Dr. Noland who is accompanied by her daughter at todays office visit. She has a past medical history of carpal tunnel, type 2 diabetes, HPV, herpes simplex virus, hyperlipidemia, hypertension, osteoporosis, and urinary incontinence. She present to the office today for a follow up urinary incontinence and overactive bladder. In discussion with the patient today she does report improvement in lower urinary tract symptoms with 75 mg of Gemtesa daily however does feel she continues with lower urinary tract symptoms. In office urinalysis results reviewed with the patient today. PVR 0 mL. Previous workup has included a retroperitoneal ultrasound 10/16 noting bilateral kidneys with no calculi and or hydronephrosis. Benign bilateral renal cysts are noted. The bladder is partially distended. Bladder jets are demonstrated. Pre void prior his approximately 130 mL. Postvoid bladder volume is approximately 50 mL. Discussed at length potential causes for lower urinary tract symptoms patient is experiencing. Discussed importance of management and diabetes for improvement lower urinary tract symptoms as well as overall health and well-being. She otherwise denies hematuria, dysuria, foul-smelling urine, changes to urinary stream, flank pain, fever, and or chills. We discussed potential causes of urinary urgency, urinary frequency, and mixed urinary incontinence she continues to experience as well as further treatment options and risks and benefits of these treatment options patient was previously trialed oxybutynin, Myrbetriq, and VESIcare with no improvement in her lower urinary tract symptoms. She also discusses that although Gemtesa has been somewhat helpful she does have a significant amount to pay in copays. She continues to follow-up with dermatology for her ongoing skin issues. She otherwise offers no issues or concerns at this time. [facility] Medical History Skin lesion Colonoscopy refused Chest pain Urinary incontinence Dizziness Annual physical exam DM type 2 (diabetes mellitus, type 2) Pruritus Carpal tunnel syndrome on both sides Hyperglycemia Hyperlipemia Hypertension HSV (herpes simplex virus) infection HPV (human papilloma virus) infection Surgical History Hx of unilateral oophorectomy Family History Father No problems noted. Mother No problems noted. Social History Housing: House Alcohol intake: never Patient Tobacco Use Status: Never used Tobacco e-Cigarette/Vaping Use: Never Used Second Hand Smoke Exposure: No service: No Current occupational status: employed Current occupational exposures/hazards: No Sexual orientation: Straight/Heterosexual Gender identity: Female Cognitive needs: No Hearing needs: No Vision needs: Yes Female Reproductive History Menstrual Age of Menarche: 14 Review of Systems Const Reports as per HPI Eyes Reports no additional complaints ENT Reports no additional complaints Card Reports as per HPI Resp Reports no additional complaints GI Reports as per HPI Reports as per HPI Musc Reports as per HPI Skin/Breast Reports as per HPI Neuro Reports as per HPI Endo Reports as per HPI Physical Exam Const General: cooperative, healthy appearing, comfortable, no acute distress, well developed, alert and awake Orientation/consciousness: patient oriented x3 Limitations: no limitations HEENT Head: Yes normal to inspection, Yes normocephalic and Yes atraumatic Ears: hearing grossly normal bilaterally Eyes General: appearance normal, both eyes and all related structures Neck Neck: Yes normal visual inspection and Yes trachea midline Chest Chest palpation & inspection: normal inspection of the chest Resp Effort & Inspection: normal respiratory effort and able to speak in complete sentences Cardio Rate: regular rate GI Inspection: Yes normal to inspection General: Yes no CVA tenderness Back/Spine/Pelvis Back: no CVA tenderness Skin General skin exam: no rashes or lesions noted Neuro General: patient oriented x3 Extrem General: Yes normal to inspection Psych Appearance: grossly normal and well kempt Mental Status: mental status grossly normal Speech and movement: Normal speech and movement present and Clear speech present Affect: normal affect Attitude: cooperative Thought process: Normal thought process present Thought content: Normal thought content present Insight: Fair insight present (Psych) Judgement: Fair judgement present (Psych) Office Procedures Post Void Residual Post Residual Void Post Void Residual (PVR): 0 [id number] Void Residual by ultrasound Results AMB Urinalysis, Automated UA Leukoctes 0 Wilfredo/uL Last Edit by Neha Fritz on 07/28/24 16:02 UA Nitrite Negative Last Edit by Neha Fritz on 07/28/24 16:02 UA Urobilinogen 0.2 mg/dL Last Edit by Neha Fritz on 07/28/24 16:02 UA Protein 30 mg/dL Last Edit by Neha Fritz on 07/28/24 16:02 UA pH 5.0 Last Edit by Neha Fritz on 07/28/24 16:02 UA Blood 0 Grover/uL Last Edit by Neha Fritz on 07/28/24 16:[address] 1.030 Last Edit by Neha Fritz on 07/28/24 16:02 UA Ketone Positive Last Edit by Neha Fritz on 07/28/24 16:02 UA Bilirubin 0 mg/dL Last Edit by Neha Fritz on 07/28/24 16:02 UA Glucose 500 mg/dL Last Edit by Neha Fritz on 07/28/24 16:02 Results Reviewed Results Reviewed: Laboratory Last Values Urine pH (Auto) 5.0 07/28/24 08:[address] (Auto) 1.030 07/28/24 08:42 Urine Protein (Auto) 30 mg/dL 07/28/24 08:42 Glucose (UA)(Auto) 500 mg/dL 07/28/24 08:42 Urine Ketones (Auto) Positive 07/28/24 08:42 Urine Blood (Auto) 0 Grover/uL 07/28/24 08:42 Urine Nitrite (Auto) Negative 07/28/24 08:42 Urine Bilirubin (Auto) 0 mg/dL 07/28/24 08:42 Urine Urobilinogen (Auto) 0.2 mg/dL 07/28/24 08:42 Leukocyte Esterase (Auto) 0 Wilfredo/uL 07/28/24 08:42 Assessment & Plan Assessment & Plan (1) Renal cyst: Code(s): N28.1 - Cyst of kidney, acquired Category: Medical (2) Urinary incontinence: Code(s): R32 - Unspecified urinary incontinence Category: Medical Plan In office urinalysis results reviewed with the patient today; as noted above. PVR 0 mL. Stop Gemtesa. Start Festoterodine as discussed and prescribed Discussed importance of managing diabetes for improvement in lower urinary tract symptoms as well as overall health and well-being. We discussed at length potential causes of lower urinary tract symptoms patient is experiencing as well as further treatment options; and risks and benefits of these treatment options. Discussed possible near future in office urodynamics and or cystoscopy for further assessment evaluation. Follow-up in 1-3 months with PVR; or sooner with any issues, concerns, and or questions. Orders: Orders AMB Urinalysis Automated Today Z13.9 - Encounter for screening, unspecified AMB Post Void Residual by ultrasound Today R32 - Unspecified urinary incontinence Medications: New fesoterodine ER 4 mg PO DAILY 30 tabs 3RF 30 days Discontinued vibegron (Gemtesa) Discontinued Reason: Doctor's Order 75 mg PO DAILY 90 tabs 4RF 90 days N32.81 - Overactive bladder Patient Instructions: The patient had an opportunity to ask questions regarding the treatment plan. All questions were answered. Physical exam, labs, and imaging were discussed and reviewed in detail. As well as risks, benefits, and discussion of treatment choices. No major barriers to understanding were identified. The patient expressed understanding and agreement with the above treatment plan. The patient was made aware they should contact our office by phone for worsening of their current condition, the appearance of new symptoms, or with any questions or concerns. Compliance is encouraged with any medications and follow up testing that is ordered. It is a privilege to be allowed the opportunity to participate in? your urological care.? Again, if you have any questions or concerns If you have any questions or concerns please do not hesitate to contact me. The office is [phone]. This note is constructed using voice recognition software. While every effort has been made to ensure accuracy product safety expert errors may have been included. Yours sincerely, ROBBIN Mathew Coding Level of Care Code Est Pt Level 4 (00546) Complex EM visit Add On G2211 Diagnoses Renal cyst N28.1 Urinary incontinence R32 CPT Codes Post Residual Void - PVR CPT Code: [id number]-[id number] Void Residual by ultrasound ([id number])
== END 2024-07-28 16:26 | disposition home or self-care (01) ==
LOC: HO.HUSH 15:35
PROVIDERS: PCP Internal Medicine; Visit Provider Nurse Practitioner Family
DX: N28.1 Cyst of kidney, acquired (principal); R32 Unspecified urinary incontinence; Z13.9 Encounter for screening, unspecified
CPT/HCPCS: 99214; G2211

== ENCOUNTER → 2024-07-28 15:34 | Outpatient (BNVA) | payer MEDICARE, SELFPAY | PROVIDERS: PCP Internal Medicine; Visit Provider Nurse Practitioner Family | DX: N28.1 Cyst of kidney, acquired (principal); R32 Unspecified urinary incontinence | CPT/HCPCS: 51798; 81003; 99212 ==

== ENCOUNTER 2024-09-06 08:30 | Outpatient (REF) | payer MEDICARE, SELFPAY ==
[2024-09-06 11:18] LABS: MANUAL DIFF FLAG NO
[2024-09-06 11:25] LABS: Basophils Percent Auto 0.4 % (0-2); Eosinophils Absolute Auto 0.2 X10*3/uL (0.0-0.4); Eosinophils Percent Auto 2.8 % (0-4); Hematocrit 45.1 % (37.0-47.0); Hemoglobin 15.1 g/dl (12.0-16.0); Imm Gran Abs Auto 0.02 X10*3/uL (0.00-0.03); Imm Gran Pct Auto 0.2 % (0.0-0.4); Lymphocytes Absolute Auto 2.8 X10*3/uL (1.2-4.9); Lymphocytes Percent Auto 34.2 % (20-40); Mean Corpuscular HGB Conc 33.5 g/dl (31.0-35.0); Mean Corpuscular Volume 89.5 fL (80.0-98.0); Mean Platelet Volume 11.6 fL (9.4-12.3); Monocytes Absolute Auto 0.5 X10*3/uL (0.1-1.2); Monocytes Percent Auto 6.3 % (2-11); Neutrophils Absolute Auto 4.6 x10*3/uL (2.0-8.3); Neutrophils Percent Auto 56.1 % (45-73); Platelet Count 198 X10*3/uL (160-400); Red Blood Count 5.04 X10*6/uL (4.20-5.50); Red Cell Distribution Width 11.9 % (11.0-16.0); White Blood Count 8.3 X10*3/uL (4.8-10.8)
[2024-09-06 11:47] LABS: Alanine Aminotransferase 38 U/L (0-31); Albumin Level 4.1 g/dL (3.5-5.0); Alkaline Phosphatase 62 U/L (39-117); Anion Gap 13 (12-20); Aspartate Amino Transferase 27 U/L (5-31); Bilirubin Total 0.7 mg/dL (0.0-1.0); Blood Urea Nitrogen 18 mg/dL (9-16); Calcium 9.1 mg/dL (8.4-10.2); Carbon Dioxide 26 mmol/L (22-29); Chloride 108 mmol/L (96-108); Cholesterol 179 mg/dL (<200); Estimated Glomerular Filt Rate > 60; Glucose Random 205 mg/dL (60-115); HDL Cholesterol 54 mg/dL (>40); LDL Cholesterol Calculated 99 mg/dL (<100); Potassium 3.9 mmol/L (3.3-5.1); Sodium 143 mmol/L (135-145); Triglycerides 134 mg/dL (<150)
[2024-09-06 11:58] LABS: Estimated Average Glucose 240 mg/dL
[2024-09-06 12:12] LABS: Creatinine Urine 168.69 mg/dL
== END 2024-09-06 08:31 | disposition home or self-care (01) ==
LOC: HO.HMGCLDS 08:30
PROVIDERS: PCP Internal Medicine; Visit Provider Internal Medicine
DX: E11.9 Type 2 diabetes mellitus without complications (principal); E78.5 Hyperlipidemia, unspecified; I10 Essential (primary) hypertension
CPT/HCPCS: 36415; 80053; 80061; 82043; 82570; 83036; 85025

== ENCOUNTER 2024-09-08 09:43 | Outpatient (AMB) | payer MEDICARE, SELFPAY ==
[2024-09-08 10:10] VITALS: BP 124/80; PULSE 109; RESP 20; TEMP 36.9; O2SAT 97; BMI 31.5
--- NOTE | 2024-09-08 10:10 | MHC.PC.OV ---
Vital Signs 09/08/24 10:10 Height 5 ft 3 in Weight 178 lb BMI 31.5 BP 124/80 Blood Pressure Location Lt brachial Position Sitting Respiration 20 Pulse 109 H Pulse Source Pulse Oximeter Temp 98.5 F Temp Source Oral Pulse Oximetry (%) 97 Oxygen Delivery Method Room Air Intake Visit Reasons: PE - see comments Intake Note: Pt is here today for PE. Allergies hydrochlorothiazide Allergy (Intermediate, Verified 09/08/24 10:15) Nausea triamterene Allergy (Intermediate, Verified 09/08/24 10:15) nausea clarithromycin [From Biaxin] Allergy (Unknown, Verified 09/08/24 10:15) unknown doxycycline Allergy (Unknown, Verified 09/08/24 10:15) unknown alendronate sodium Adverse Reaction (Intermediate, Verified 09/08/24 10:15) Dizziness lisinopril Adverse Reaction (Intermediate, Verified 09/08/24 10:15) cough losartan Adverse Reaction (Intermediate, Verified 09/08/24 10:15) Fatigued dapagliflozin [From Farxiga] Adverse Reaction (Verified 09/08/24 10:15) severe Chest Pain Medication List - Last Reconciled 09/08/24 by Kimberlyn Noland MD amlodipine 5 mg PO DAILY atorvastatin 40 mg PO DAILY blood sugar diagnostic ([employer] Verio test strips) Test once per day blood-glucose meter ([employer] Verio Flex Meter) Use daily as directed cetirizine 20 mg PO BEDTIME cholecalciferol (vitamin D3) (Vitamin D3) 25 mcg PO DAILY clobetasol 0.05% 1 appl topical BID fesoterodine ER 4 mg PO DAILY 30 days glipizide 5 mg PO BID lancets ([employer] Delica Plus Lancet) Test blood sugar once a day meclizine 25 mg PO BID PRN metformin ER 750 mg PO BID metoprolol succinate ER 100 mg PO DAILY Mounjaro (tirzepatide) 2.5 mg (0.5 mL) subcut QWEEK NS olmesartan 40 mg PO DAILY Tobacco use date assessed: 09/08/24 Fall risk assessment: No Falls in past year Last assessed Fall Risk: 09/08/24 Dental Screening Dental Screen Date: 09/08/24 Did you have a dental visit in the last 12 months?: No Did you have a dental problem in the last 6 months where you did not have access to dental care?: No Was dental information given to patient?: Patient declined HPI PE - see comments HPI Details Patient presents for physical. Type 2 diabetes has been poorly controlled due to patient noncompliance with the diet. She has been checking her blood glucose occasionally with the readings over 200. Patient has been taking glipizide and metformin. [facility] Medical History (Updated 09/08/24 @ 15:45 by Kimberlyn Noland MD) Varicose veins of right lower extremity with inflammation Skin lesion Colonoscopy refused Chest pain Urinary incontinence Dizziness Annual physical exam DM type 2 (diabetes mellitus, type 2) Pruritus Carpal tunnel syndrome on both sides Hyperglycemia Hyperlipemia Hypertension HSV (herpes simplex virus) infection HPV (human papilloma virus) infection Surgical History Hx of unilateral oophorectomy Family History Father No problems noted. Mother No problems noted. Social History Housing: House Alcohol intake: never Patient Tobacco Use Status: Never used Tobacco e-Cigarette/Vaping Use: Never Used Second Hand Smoke Exposure: No service: No Current occupational status: employed Current occupational exposures/hazards: No Sexual orientation: Straight/Heterosexual Gender identity: Female Cognitive needs: No Hearing needs: No Vision needs: Yes Female Reproductive History Menstrual Age of Menarche: 14 Questionnaire Thrive Questionnaire Date Thrive assessed: 05/30/24 AUDIT C Alcohol Use Questionnaire (AUDIT-C) 1. How often do you have a drink containing alcohol?: Never 3. How often do you have six or more drinks on one occasion?: Never Total Score: 0 SHILPI-7 AMB Questionnaire SHILPI-7 Date SHILPI - 7 assessed: 05/30/24 Source: Developed by Drs. Aniket Palencia, Radha Alston, Homer Palmer and colleagues, with an educational heather from [employer]. Review of Systems Const All systems reviewed & are unremarkable except as noted in HPI and below Eyes Reports no additional complaints ENT Reports no additional complaints Card Reports no additional complaints Resp Reports no additional complaints GI Reports no additional complaints Reports no additional complaints Musc Reports no additional complaints Physical exam (Primary Care) Vital Signs: Last Vital Signs Temp 98.5 F 09/08/24 10:10 Pulse 109 H 09/08/24 10:10 Resp 20 09/08/24 10:10 BP 124/80 09/08/24 10:10 Pulse Ox 97 09/08/24 10:10 Oxygen Delivery Method Room Air 09/08/24 10:10 BMI result Body Mass Index 31.5 Tobacco/Smoking Status: Tobacco use Status Tobacco use date assessed 09/08/24 09/08/24 10:15 Patient Tobacco Use Status Never used Tobacco 09/08/24 10:11 e-Cigarette/Vaping Use Never Used 09/08/24 10:11 Thrive Assessment: Date of Thrive Assessment Date Thrive assessed 05/30/24 09/08/24 10:11 Const General: no acute distress HENMT Head: Yes normal to inspection Ears: hearing grossly normal bilaterally Face and sinus: Yes normal facial exam Throat: Yes posterior oropharynx normal Eyes General: appearance normal, both eyes and all related structures Neck Neck: Yes no lymphadenopathy and Yes supple Resp Effort & Inspection: normal respiratory effort Auscultation: clear to auscultation bilaterally Cardio Rhythm: regular rhythm Heart sounds: S1 normal heart sound present and S2 normal heart sound present GI Inspection: Yes normal to inspection Palpation (GI): Soft to palpation Percussion: Yes normal to percussion Auscultation: normal bowel sounds Coding Level of Care Code Est Pt Prev Care >65y(13136) Diagnoses Hypertension I10 Hyperlipemia E78.5 DM type 2 (diabetes mellitus, type 2) E11.9 Assessment & Plan Assessment & Plan (1) Hypertension: Code(s): I10 - Essential (primary) hypertension Category: Medical Plan: Continue current medications (2) Hyperlipemia: Code(s): E78.5 - Hyperlipidemia, unspecified Category: Medical Plan: Continue statin (3) DM type 2 (diabetes mellitus, type 2): Comment: Intolerant to dapagliflozin, chest pain Code(s): E11.9 - Type 2 diabetes mellitus without complications Category: Medical Plan: A1c is 10.0, ADA diet increase physical activity discussed with the patient she will continue metformin and glipizide. Mounjaro 2.5 mg weekly will be started patient was advised to check her blood glucose daily and will follow-up in 1 month Medications: New Mounjaro (tirzepatide) 2.5 mg (0.5 mL) subcut QWEEK 2 mL 2RF NS
== END 2024-09-08 11:20 | disposition home or self-care (01) ==
PROVIDERS: PCP Internal Medicine; Visit Provider Internal Medicine
DX: Z00.00 Encounter for general adult medical examination without abnormal findings (principal); I10 Essential (primary) hypertension; E78.5 Hyperlipidemia, unspecified; E11.9 Type 2 diabetes mellitus without complications

== ENCOUNTER → 2024-09-08 09:43 | Outpatient (BNVA) | payer MEDICARE, SELFPAY | PROVIDERS: PCP Internal Medicine; Visit Provider Internal Medicine | DX: Z00.00 Encounter for general adult medical examination without abnormal findings (principal); I10 Essential (primary) hypertension; E78.5 Hyperlipidemia, unspecified; E11.9 Type 2 diabetes mellitus without complications | CPT/HCPCS: 99397 ==

== ENCOUNTER 2024-10-10 13:20 | Outpatient (AMB) | payer MEDICARE, SELFPAY ==
[2024-10-10 14:01] VITALS: BP 124/80; PULSE 95; RESP 18; TEMP 36.7; O2SAT 97; BMI 32.6
--- NOTE | 2024-10-10 14:01 | MHC.PC.OV ---
Vital Signs 10/10/24 14:01 Height 5 ft 3 in Weight 184 lb BMI 32.6 BP 124/80 Blood Pressure Location Lt brachial Position Sitting Respiration 18 Pulse 95 Pulse Source Pulse Oximeter Temp 98.1 F Temp Source Oral Pulse Oximetry (%) 97 Oxygen Delivery Method Room Air Intake Visit Reasons: 1m f/u Intake Note: Pt is here today for 1 month follow up visit on DM. Allergies hydrochlorothiazide Allergy (Intermediate, Verified 10/10/24 14:06) Nausea triamterene Allergy (Intermediate, Verified 10/10/24 14:06) nausea clarithromycin (From Biaxin) Allergy (Unknown, Verified 10/10/24 14:06) unknown doxycycline Allergy (Unknown, Verified 10/10/24 14:06) unknown alendronate sodium Adverse Reaction (Intermediate, Verified 10/10/24 14:06) Dizziness lisinopril Adverse Reaction (Intermediate, Verified 10/10/24 14:06) cough losartan Adverse Reaction (Intermediate, Verified 10/10/24 14:06) Fatigued tirzepatide (From Mounjaro) Adverse Reaction (Intermediate, Verified 10/10/24 14:29) Nausea and Vomiting dapagliflozin (From Farxiga) Adverse Reaction (Verified 10/10/24 14:06) severe Chest Pain Medication List - Last Reconciled 10/10/24 by iKmberlyn Noland MD amlodipine 5 mg PO DAILY atorvastatin 40 mg PO DAILY blood sugar diagnostic (CytodynTouch Verio test strips) Test once per day blood-glucose meter (OneTouch Verio Flex Meter) Use daily as directed cetirizine 20 mg PO BEDTIME cholecalciferol (vitamin D3) (Vitamin D3) 25 mcg PO DAILY clobetasol 0.05% 1 appl topical BID fesoterodine ER 4 mg PO DAILY 30 days glipizide 5 mg PO BID lancets (CytodynTouch Delica Plus Lancet) Test blood sugar once a day meclizine 25 mg PO BID PRN metformin ER 750 mg PO BID metoprolol succinate ER 100 mg PO DAILY olmesartan 40 mg PO DAILY Tobacco use date assessed: 10/10/24 Fall risk assessment: No Falls in past year Last assessed Fall Risk: 10/10/24 Dental Screening Dental Screen Date: 09/08/24 HPI 1m f/u HPI Details Patient presents for the follow-up. She had tried Mounjaro for 2 weeks but developed severe nausea vomiting and diarrhea. Patient has been monitoring ADA diet and continue to take glipizide and metformin. She reports blood glucose readings between 130-150. She reports intermittent substernal chest burning sensation lasting for hours usually relieved by drinking water or Mylanta, Patient denies exertional chest pain shortness or breath. she had a negative stress test last year for those symptoms. Patient denies dysphagia odynophagia. [facility] Medical History (Updated 10/10/24 @ 15:14 by Kimberlyn Noland MD) GERD (gastroesophageal reflux disease) Varicose veins of right lower extremity with inflammation Skin lesion Colonoscopy refused Chest pain Urinary incontinence Dizziness Annual physical exam DM type 2 (diabetes mellitus, type 2) Pruritus Carpal tunnel syndrome on both sides Hyperglycemia Hyperlipemia Hypertension HSV (herpes simplex virus) infection HPV (human papilloma virus) infection Surgical History Hx of unilateral oophorectomy Family History Father No problems noted. Mother No problems noted. Social History Housing: House Alcohol intake: never Patient Tobacco Use Status: Never used Tobacco e-Cigarette/Vaping Use: Never Used Second Hand Smoke Exposure: No service: No Current occupational status: employed Current occupational exposures/hazards: No Sexual orientation: Straight/Heterosexual Gender identity: Female Cognitive needs: No Hearing needs: No Vision needs: Yes Female Reproductive History Menstrual Age of Menarche: 14 Questionnaire Thrive Questionnaire Date Thrive assessed: 05/30/24 SHILPI-7 AMB Questionnaire SHILPI-7 Date SHILPI - 7 assessed: 05/30/24 Source: Developed by Drs. Aniket Palencia, Radha Alston, Homer Palmer and colleagues, with an educational heather from [employer]. Review of Systems Const All systems reviewed & are unremarkable except as noted in HPI and below Eyes Reports no additional complaints ENT Reports no additional complaints Card Reports no additional complaints Resp Reports no additional complaints GI Reports no additional complaints Reports no additional complaints Physical exam (Primary Care) Vital Signs: Last Vital Signs Temp 98.1 F 10/10/24 14:01 Pulse 95 10/10/24 14:01 Resp 18 10/10/24 14:01 BP 124/80 10/10/24 14:01 Pulse Ox 97 10/10/24 14:01 Oxygen Delivery Method Room Air 10/10/24 14:01 BMI result Body Mass Index 32.6 Tobacco/Smoking Status: Tobacco use Status Tobacco use date assessed 10/10/24 10/10/24 14:07 Patient Tobacco Use Status Never used Tobacco 10/10/24 14:05 e-Cigarette/Vaping Use Never Used 10/10/24 14:05 Thrive Assessment: Date of Thrive Assessment Date Thrive assessed 05/30/24 10/10/24 14:05 Const General: no acute distress HENMT Head: Yes normal to inspection Face and sinus: Yes normal facial exam Eyes General: appearance normal, both eyes and all related structures Neck Neck: Yes supple Resp Effort & Inspection: normal respiratory effort Auscultation: clear to auscultation bilaterally Cardio Rhythm: regular rhythm Heart sounds: S1 normal heart sound present and S2 normal heart sound present GI Inspection: Yes normal to inspection Palpation (GI): Soft to palpation Percussion: Yes normal to percussion Auscultation: normal bowel sounds Results AMB Random Glucose (hemocue) AMB Random Glucose (hemocue) 147 mg/dL Last Edit by ORTIZ Fischer on 10/10/24 14:49 Results Reviewed Results Reviewed: Laboratory Last Values Random Glu (Clinic) 147 mg/dL 10/10/24 14:45 Coding Level of Care Code Est Pt Level 4 (41364) Complex EM visit Add On G2211 Diagnoses DM type 2 (diabetes mellitus, type 2) E11.9 Hypertension I10 Chest pain R07.9 GERD (gastroesophageal reflux disease) K21.9 Assessment & Plan Assessment & Plan (1) DM type 2 (diabetes mellitus, type 2): Comment: Intolerant to dapagliflozin, chest pain, intolerant to Mounjaro nausea vomiting diarrhea Code(s): E11.9 - Type 2 diabetes mellitus without complications Category: Medical Plan: ADA diet regular physical activity discussed with the patient continue glipizide and metformin follow-up in 3 months with a fasting labs before (2) Hypertension: Code(s): I10 - Essential (primary) hypertension Category: Medical Plan: Continue current medications (3) Chest pain: Comment: Chronic substernal, negative nuclear stress test August 2021 Code(s): R07.9 - Chest pain, unspecified Category: Medical Plan: EKG shows sinus rhythm with first-degree AV block LVH no acute ST-T changes (4) GERD (gastroesophageal reflux disease): Code(s): K21.9 - Gastro-esophageal reflux disease without esophagitis Category: Medical Plan: For chronic GERD omeprazole 40 mg daily for 1 month as prescribed. If the symptoms persist patient will be referred to GI for EGD Orders: Orders AMB Random Glucose (hemocue) Today Z13.9 - Encounter for screening, unspecified Hemoglobin A1c 3 Months E11.9 - Type 2 diabetes mellitus without complications, I10 - Essential (primary) hypertension AMB EKG-In Office Today E11.9 - Type 2 diabetes mellitus without complications, I10 - Essential (primary) hypertension, R07.9 - Chest pain, unspecified Comprehensive [place]. Panel Fast 3 Months E11.9 - Type 2 diabetes mellitus without complications, I10 - Essential (primary) hypertension Complete Blood Count Auto Diff 3 Months E11.9 - Type 2 diabetes mellitus without complications, I10 - Essential (primary) hypertension Lipid Panel 3 Months E11.9 - Type 2 diabetes mellitus without complications, I10 - Essential (primary) hypertension Medications: New omeprazole 40 mg PO DAILY 90 caps 0RF Discontinued Mounjaro (tirzepatide) Discontinued Reason: Doctor's Order 2.5 mg (0.5 mL) subcut QWEEK 2 mL 2RF NS
== END 2024-10-10 15:07 | disposition home or self-care (01) ==
LOC: HO.HMCC 13:21
PROVIDERS: PCP Internal Medicine; Visit Provider Internal Medicine
DX: E11.9 Type 2 diabetes mellitus without complications (principal); I10 Essential (primary) hypertension; R07.9 Chest pain, unspecified; K21.9 Gastro-esophageal reflux disease without esophagitis; Z13.9 Encounter for screening, unspecified

== ENCOUNTER → 2024-10-10 13:20 | Outpatient (BNVA) | payer MEDICARE, SELFPAY | PROVIDERS: PCP Internal Medicine; Visit Provider Internal Medicine | DX: E11.9 Type 2 diabetes mellitus without complications (principal); R07.9 Chest pain, unspecified; I10 Essential (primary) hypertension; K21.9 Gastro-esophageal reflux disease without esophagitis | CPT/HCPCS: 82948; 99212 ==

== ENCOUNTER 2025-01-03 07:39 | Outpatient (REF) | payer MEDICARE, SELFPAY ==
[2025-01-03 11:06] LABS: MANUAL DIFF FLAG NO
[2025-01-03 11:09] LABS: Hematocrit 47.4 % (37.0-47.0); Hemoglobin 15.2 g/dl (12.0-16.0); Imm Gran Abs Auto 0.02 X10*3/uL (0.00-0.03); Imm Gran Pct Auto 0.3 % (0.0-0.4); Lymphocytes Absolute Auto 2.2 X10*3/uL (1.2-4.9); Mean Corpuscular HGB Conc 32.1 g/dl (31.0-35.0); Mean Corpuscular Hemoglobin 30.0 pg (27.0-33.0); Mean Corpuscular Volume 93.5 fL (80.0-98.0); NRBC Abs Auto 0.000 X10*3/uL (0.0-0.012); NRBC Pct Auto 0.0 /100WBC (0.0-0.2); Platelet Count 205 X10*3/uL (160-400); Red Blood Count 5.07 X10*6/uL (4.20-5.50); White Blood Count 6.8 X10*3/uL (4.8-10.8)
[2025-01-03 11:24] LABS: Hemoglobin A1C 295.2307 umol/L; Total Hemoglobin (HGBA1C) 3808.5950 umol/L
[2025-01-03 12:14] LABS: Alanine Aminotransferase 33 U/L (0-31); Albumin Level 4.1 g/dL (3.5-5.0); Alkaline Phosphatase 68 U/L (39-117); Anion Gap 12 (12-20); Aspartate Amino Transferase 28 U/L (5-31); Blood Urea Nitrogen 17 mg/dL (9-16); Calcium 8.8 mg/dL (8.4-10.2); Carbon Dioxide 26 mmol/L (22-29); Chloride 108 mmol/L (96-108); Cholesterol 221 mg/dL (<200); Estimated Glomerular Filt Rate 58; HDL Cholesterol 54 mg/dL (>40); Potassium 3.7 mmol/L (3.3-5.1); Sodium 142 mmol/L (135-145); Total Protein 7.0 g/dL (6.5-8.0); Triglycerides 122 mg/dL (<150)
== END 2025-01-03 07:40 | disposition home or self-care (01) ==
LOC: HO.HMGCLDS 07:39
PROVIDERS: PCP Internal Medicine; Visit Provider Internal Medicine
DX: E11.9 Type 2 diabetes mellitus without complications (principal); I10 Essential (primary) hypertension
CPT/HCPCS: 36415; 80053; 80061; 83036; 85025

== ENCOUNTER 2025-01-16 12:34 | Outpatient (AMB) | payer MEDICARE, SELFPAY ==
[2025-01-16 12:45] VITALS: BP 135/82; PULSE 102; RESP 18; O2SAT 98; BMI 31.5
--- NOTE | 2025-01-16 12:45 | MHC.PC.OV ---
Vital Signs 01/16/25 12:45 Height 5 ft 3 in Weight 178 lb BMI 31.5 BP 135/82 Blood Pressure Location Rt brachial Position Sitting Respiration 18 Pulse 102 H Pulse Source Pulse Oximeter Pulse Oximetry (%) 98 Oxygen Delivery Method Room Air Intake Visit Reasons: 3m f/u Intake Note: Pt is here today for 3 months follow up visit. Allergies hydrochlorothiazide Allergy (Intermediate, Verified 01/16/25 12:46) Nausea triamterene Allergy (Intermediate, Verified 01/16/25 12:46) nausea clarithromycin (From Biaxin) Allergy (Unknown, Verified 01/16/25 12:46) unknown doxycycline Allergy (Unknown, Verified 01/16/25 12:46) unknown alendronate sodium Adverse Reaction (Intermediate, Verified 01/16/25 12:46) Dizziness lisinopril Adverse Reaction (Intermediate, Verified 10/10/24 14:06) cough losartan Adverse Reaction (Intermediate, Verified 10/10/24 14:06) Fatigued tirzepatide (From Mounjaro) Adverse Reaction (Intermediate, Verified 10/10/24 14:29) Nausea and Vomiting dapagliflozin (From Farxiga) Adverse Reaction (Verified 10/10/24 14:06) severe Chest Pain Medication List - Last Reconciled 01/16/25 by Kimberlyn Noladn MD amlodipine 5 mg PO DAILY atorvastatin 40 mg PO DAILY blood sugar diagnostic ([employer] My [employer] Verio test strips) Test once per day blood-glucose meter ([employer] My [employer] Verio Flex Meter) Use daily as directed cetirizine 20 mg PO BEDTIME cholecalciferol (vitamin D3) (Vitamin D3) 25 mcg PO DAILY clobetasol 0.05% 1 appl topical BID fesoterodine ER 4 mg PO DAILY 30 days glipizide 5 mg PO BID lancets (CirroTouch Delica Plus Lancet) Test blood sugar once a day meclizine 25 mg PO BID PRN metformin ER 750 mg PO BID metoprolol succinate ER 100 mg PO DAILY olmesartan 40 mg PO DAILY omeprazole 40 mg PO DAILY Tobacco use date assessed: 01/16/25 Fall risk assessment: No Falls in past year Last assessed Fall Risk: 01/16/25 Dental Screening Dental Screen Date: 09/08/24 HPI 3m f/u HPI Details Pt presents for f/u HTN, hyperlipid, DM 2. Patient reports fluctuating blood glucose in the morning between 150 to over 200. She has been following ADA diet. Patient would like to restart Mounjaro for the next 3 months. Patient reports persistent positional vertigo with temporary improved with meclizine. [facility] Medical History Vertigo GERD (gastroesophageal reflux disease) Varicose veins of right lower extremity with inflammation Skin lesion Colonoscopy refused Chest pain Urinary incontinence Dizziness Annual physical exam DM type 2 (diabetes mellitus, type 2) Pruritus Carpal tunnel syndrome on both sides Hyperglycemia Hyperlipemia Hypertension HSV (herpes simplex virus) infection HPV (human papilloma virus) infection Surgical History Hx of unilateral oophorectomy Family History Father No problems noted. Mother No problems noted. Social History Housing: House Alcohol intake: never Patient Tobacco Use Status: Never used Tobacco e-Cigarette/Vaping Use: Never Used Second Hand Smoke Exposure: No service: No Current occupational status: employed Current occupational exposures/hazards: No Sexual orientation: Straight/Heterosexual Gender identity: Female Cognitive needs: No Hearing needs: No Vision needs: Yes Female Reproductive History Menstrual Age of Menarche: 14 Questionnaire Thrive Questionnaire Date Thrive assessed: 05/30/24 SHILPI-7 AMB Questionnaire SHILPI-7 Date SHILPI - 7 assessed: 05/30/24 Source: Developed by Drs. Aniket Palencia, Radha Alston, Homer Palmer and colleagues, with an educational heather from [employer]. Review of Systems Const All systems reviewed & are unremarkable except as noted in HPI and below Eyes Reports no additional complaints ENT Reports no additional complaints Card Reports no additional complaints Resp Reports no additional complaints GI Reports no additional complaints Reports no additional complaints Physical exam (Primary Care) Vital Signs: Last Vital Signs Pulse 102 H 01/16/25 12:45 Resp 18 01/16/25 12:45 Pulse Ox 98 01/16/25 12:45 Oxygen Delivery Method Room Air 01/16/25 12:45 BMI result Body Mass Index 31.5 Tobacco/Smoking Status: Tobacco use Status Tobacco use date assessed 01/16/25 01/16/25 12:57 Patient Tobacco Use Status Never used Tobacco 01/16/25 12:46 e-Cigarette/Vaping Use Never Used 01/16/25 12:46 Thrive Assessment: Date of Thrive Assessment Date Thrive assessed 05/30/24 01/16/25 12:46 Const General: no acute distress HENMT Head: Yes normal to inspection Ears: TM's normal bilaterally Mouth: Normal oral and palatal mucosa present Neck Neck: Yes supple Resp Effort & Inspection: normal respiratory effort Auscultation: clear to auscultation bilaterally Cardio Rhythm: regular rhythm Heart sounds: S1 normal heart sound present and S2 normal heart sound present GI Inspection: Yes normal to inspection Palpation (GI): Soft to palpation Percussion: Yes normal to percussion Auscultation: normal bowel sounds Coding Level of Care Code Est Pt Level 4 (57837) Diagnoses Vertigo R42 Hypertension I10 DM type 2 (diabetes mellitus, type 2) E11.9 Hyperlipemia E78.5 Assessment & Plan Assessment & Plan (1) Vertigo: Code(s): R42 - Dizziness and giddiness Category: Medical Plan: Referred to vestibular therapy continue meclizine as needed (2) Hypertension: Code(s): I10 - Essential (primary) hypertension Category: Medical Plan: Increase metoprolol to 150 mg continue olmesartan and amlodipine, patient was advised to follow-up in 1 month for blood pressure check but she declined. (3) DM type 2 (diabetes mellitus, type 2): Comment: Intolerant to dapagliflozin, chest pain, intolerant to Mounjaro nausea vomiting diarrhea Code(s): E11.9 - Type 2 diabetes mellitus without complications Category: Medical Plan: A1c is 9.2, ADA diet increase exercise weight loss discussed with the patient. Glipizide will be increased to 10 mg twice a day patient will continue metformin and will restart Mounjaro 2.5 mg weekly. (4) Hyperlipemia: Code(s): E78.5 - Hyperlipidemia, unspecified Category: Medical Plan: Medication compliance discussed with the patient she was advised to restart atorvastatin, patient will follow-up in 3 months with a fasting labs before Orders: Orders Lipid Panel 3 Months E11.9 - Type 2 diabetes mellitus without complications, E78.5 - Hyperlipidemia, unspecified, I10 - Essential (primary) hypertension Microalbumin, Random (w Creat) 3 Months E11.9 - Type 2 diabetes mellitus without complications, E78.5 - Hyperlipidemia, unspecified, I10 - Essential (primary) hypertension Complete Blood Count Auto Diff 3 Months E11.9 - Type 2 diabetes mellitus without complications, E78.5 - Hyperlipidemia, unspecified, I10 - Essential (primary) hypertension PT Evaluation and Treatment Today H81.10 - Benign paroxysmal vertigo, unspecified ear Comprehensive [place]. Panel Fast 3 Months E11.9 - Type 2 diabetes mellitus without complications, E78.5 - Hyperlipidemia, unspecified, I10 - Essential (primary) hypertension Hemoglobin A1c 3 Months E11.9 - Type 2 diabetes mellitus without complications, E78.5 - Hyperlipidemia, unspecified, I10 - Essential (primary) hypertension Medications: New glipizide 10 mg PO BID 180 tabs 2RF Mounjaro (tirzepatide) 2.5 mg (0.5 mL) subcut QWEEK 2 mL 2RF NS Changed From metoprolol succinate ER 100 mg PO DAILY 90 tabs 3RF To metoprolol succinate ER 150 mg (1.5 x 100 mg) PO DAILY 135 tabs 3RF Refilled meclizine 25 mg PO BID PRN 60 tabs 2RF dizziness Discontinued glipizide Discontinued Reason: Doctor's Order 5 mg PO BID 180 tabs 3RF
== END 2025-01-16 14:01 | disposition home or self-care (01) ==
LOC: HO.HMCC 12:34
PROVIDERS: PCP Internal Medicine; Visit Provider Internal Medicine
DX: R42 Dizziness and giddiness (principal); I10 Essential (primary) hypertension; E11.9 Type 2 diabetes mellitus without complications; E78.5 Hyperlipidemia, unspecified

== ENCOUNTER → 2025-01-16 12:34 | Outpatient (BNVA) | payer MEDICARE, SELFPAY | PROVIDERS: PCP Internal Medicine; Visit Provider Internal Medicine | DX: I10 Essential (primary) hypertension (principal); R07.9 Chest pain, unspecified; E11.9 Type 2 diabetes mellitus without complications; R42 Dizziness and giddiness; E78.5 Hyperlipidemia, unspecified | CPT/HCPCS: 99212 ==

== ENCOUNTER 2025-03-12 14:32 | Outpatient (AMB) | payer MEDICARE, SELFPAY ==
--- NOTE | 2025-03-12 14:39 | A.OFFVIS_ITS ---
Intake Visit Reasons: 3M/PVR/UA(SET) Intake Note: Patient is present for 3M/PVR/UA Urology Medication:NONE Antibiotic Allergy:CLARITHROMYCIN,DOXCYCLINEDAPAGLIFLOZIN Blood Thinner:NONE Last PVR:0ML'S Todays PVR: Hotel Administrative Assistant Required: No Hotel Administrative Assistant Services: Hotel Administrative Assistant Offered & Declined Allergies hydrochlorothiazide Allergy (Intermediate, Verified 03/15/25 14:41) Nausea triamterene Allergy (Intermediate, Verified 03/15/25 14:41) nausea clarithromycin (From Biaxin) Allergy (Unknown, Verified 03/15/25 14:41) unknown doxycycline Allergy (Unknown, Verified 03/15/25 14:41) unknown alendronate sodium Adverse Reaction (Intermediate, Verified 03/15/25 14:41) Dizziness lisinopril Adverse Reaction (Intermediate, Verified 03/15/25 14:41) cough losartan Adverse Reaction (Intermediate, Verified 03/15/25 14:41) Fatigued tirzepatide (From Mounjaro) Adverse Reaction (Intermediate, Verified 03/15/25 14:41) Nausea and Vomiting dapagliflozin (From Farxiga) Adverse Reaction (Verified 03/15/25 14:41) severe Chest Pain Medication List - Last Reconciled 03/15/25 by CAITLIN Mathew-BC amlodipine 5 mg PO DAILY atorvastatin 40 mg PO DAILY blood sugar diagnostic ([employer] Verio test strips) Test once per day blood-glucose meter (OneTouch Verio Flex Meter) Use daily as directed cetirizine 20 mg PO BEDTIME cholecalciferol (vitamin D3) (Vitamin D3) 25 mcg PO DAILY clobetasol 0.05% 1 appl topical BID fesoterodine ER 8 mg (2 x 4 mg) PO DAILY 90 days glipizide 10 mg PO BID lancets ([employer]Touch Delica Plus Lancet) Test blood sugar once a day meclizine 25 mg PO BID PRN metformin ER 750 mg PO BID metoprolol succinate ER 150 mg (1.5 x 100 mg) PO DAILY Mounjaro (tirzepatide) 2.5 mg (0.5 mL) subcut QWEEK NS olmesartan 40 mg PO DAILY omeprazole 40 mg PO DAILY HPI Comments Details: Sona is a pleasant 79 year old Armenian speaking patient of Dr. Noland who is accompanied by her daughter at todays office visit. She has a past medical history of carpal tunnel, type 2 diabetes, HPV, herpes simplex virus, hyperlipidemia, hypertension, osteoporosis, and urinary incontinence. She present to the office today for a follow up urinary incontinence and overactive bladder. In discussion with the patient today she does report improvement in lower urinary tract symptoms with Fesoterodine 4mg daily as she had been prescribed during her last office visit. She reports feeling this has been more helpful than 75 mg of Gemtesa that she previously had trialed. She does continue to experience episodes of urinary urgency, urinary frequency, and nocturia however describes these episodes as significantly improved and feels they are more manageable. We did discuss increasing fesoterodine. Unable to obtain urine for urinalysis today however PVR 0 mL. Previous workup has included a retroperitoneal ultrasound 10/16 noting bilateral kidneys with no calculi and or hydronephrosis. Benign bilateral renal cysts are noted. The bladder is partially distended. Bladder jets are demonstrated. Pre void prior his approximately 130 mL. Postvoid bladder volume is approximately 50 mL. Discussed at length potential causes for lower urinary tract symptoms patient is experiencing. Discussed importance of management and diabetes for improvement lower urinary tract symptoms as well as overall health and well-being. She otherwise denies hematuria, dysuria, foul-smelling urine, changes to urinary stream, flank pain, fever, and or chills. She has previously trialed oxybutynin, Myrbetriq, Gemtesa, and VESIcare with no improvement in her lower urinary tract symptoms. While on Gemtesa she did find this expensive as well. She otherwise offers no issues or concerns at this time. A1c: 09/17 10%, 01/17 9.2% [facility] Medical History Vertigo GERD (gastroesophageal reflux disease) Varicose veins of right lower extremity with inflammation Skin lesion Colonoscopy refused Chest pain Urinary incontinence Dizziness Annual physical exam DM type 2 (diabetes mellitus, type 2) Pruritus Carpal tunnel syndrome on both sides Hyperglycemia Hyperlipemia Hypertension HSV (herpes simplex virus) infection HPV (human papilloma virus) infection Surgical History Hx of unilateral oophorectomy Family History Father No problems noted. Mother No problems noted. Social History Housing: House Alcohol intake: never Patient Tobacco Use Status: Never used Tobacco e-Cigarette/Vaping Use: Never Used Second Hand Smoke Exposure: No service: No Current occupational status: employed Current occupational exposures/hazards: No Sexual orientation: Straight/Heterosexual Gender identity: Female Cognitive needs: No Hearing needs: No Vision needs: Yes Female Reproductive History Menstrual Age of Menarche: 14 Review of Systems Const All systems reviewed & are unremarkable except as noted in HPI and below Physical Exam Const General: cooperative, healthy appearing, comfortable, no acute distress, well developed, alert and awake Orientation/consciousness: patient oriented x3 Limitations: language barrier HEENT Head: Yes normal to inspection, Yes normocephalic and Yes atraumatic Ears: hearing grossly normal bilaterally Eyes General: appearance normal, both eyes and all related structures Neck Neck: Yes normal visual inspection and Yes trachea midline Chest Chest palpation & inspection: normal inspection of the chest Resp Effort & Inspection: normal respiratory effort and able to speak in complete sentences Cardio Rate: regular rate GI Inspection: Yes normal to inspection General: Yes no CVA tenderness Back/Spine/Pelvis Back: no CVA tenderness Skin General skin exam: no rashes or lesions noted Neuro General: patient oriented x3 Extrem General: Yes normal to inspection Psych Appearance: grossly normal and well kempt Mental Status: mental status grossly normal Speech and movement: Normal speech and movement present and Clear speech present Affect: normal affect Attitude: cooperative Thought process: Normal thought process present Thought content: Normal thought content present Insight: Fair insight present (Psych) Judgement: Fair judgement present (Psych) Assessment & Plan Assessment & Plan (1) Renal cyst: Code(s): N28.1 - Cyst of kidney, acquired Category: Medical (2) Urinary incontinence: Code(s): R32 - Unspecified urinary incontinence Category: Medical Plan Unable to obtain urine for urinalysis today as patient unable to void however PVR 0 mL. Continue Festoterodine however will increase to 2 tabs per day Discussed importance of managing diabetes for improvement in lower urinary tract symptoms as well as overall health and well-being. We discussed at length potential causes of lower urinary tract symptoms patient is experiencing as well as further treatment options; and risks and benefits of these treatment options. Discussed possible near future in office urodynamics and or cystoscopy for further assessment evaluation. Follow-up in 4 months with PVR; or sooner with any issues, concerns, and or questions. Orders: Orders AMB Urinalysis Automated 03/12/25 Z13.9 - Encounter for screening, unspecified Medications: Changed From fesoterodine ER 4 mg PO DAILY 30 days 30 tabs 3RF To fesoterodine ER this is an increase in dose 8 mg (2 x 4 mg) PO DAILY 180 tabs 3RF 90 days Patient Instructions: The patient had an opportunity to ask questions regarding the treatment plan. All questions were answered. Physical exam, labs, and imaging were discussed and reviewed in detail. As well as risks, benefits, and discussion of treatment choices. No major barriers to understanding were identified. The patient expressed understanding and agreement with the above treatment plan. The patient was made aware they should contact our office by phone for worsening of their current condition, the appearance of new symptoms, or with any questions or concerns. Compliance is encouraged with any medications and follow up testing that is ordered. It is a privilege to be allowed the opportunity to participate in? your urological care.? Again, if you have any questions or concerns If you have any questions or concerns please do not hesitate to contact me. The office is [phone]. This note is constructed using voice recognition software. While every effort has been made to ensure accuracy gas reverser errors may have been included. Yours sincerely, ROBBIN Mathew Coding Level of Care Code Est Pt Level 3 (24364) Add On Problem Visit Only Diagnoses Renal cyst N28.1 Urinary incontinence R32
== END 2025-03-12 15:06 | disposition home or self-care (01) ==
LOC: HO.HUSH 14:33
PROVIDERS: PCP Internal Medicine; Visit Provider Nurse Practitioner Family
DX: N28.1 Cyst of kidney, acquired (principal); R32 Unspecified urinary incontinence
CPT/HCPCS: 99213; G2211

== ENCOUNTER → 2025-03-12 14:32 | Outpatient (BNVA) | payer MEDICARE, SELFPAY | PROVIDERS: PCP Internal Medicine; Visit Provider Nurse Practitioner Family | DX: N28.1 Cyst of kidney, acquired (principal); R32 Unspecified urinary incontinence | CPT/HCPCS: 99212 ==